=== PATIENT | male | born 1960 | race Caucasian/White ===

== ENCOUNTER 2019-01-22 19:41 | Inpatient (IN) ==
[2019-01-22] MEDS ORDERED: Isovue-370 500 ML BOTTLE IVP ONE (19:57)
--- NOTE | 2019-01-22 20:07 | Emergency Department Note ---
Disposition Clinical Impression: Diabetic foot infection Diabetic ulcer of toe Qualifiers: Diabetes mellitus type: type 2 Laterality: left Non-pressure ulcer stage: with necrosis of muscle Qualified Code(s): E11.621 - Type 2 diabetes mellitus with foot ulcer; L97.523 - Non-pressure chronic ulcer of other part of left foot with necrosis of muscle Cellulitis Qualifiers: Site of cellulitis: extremity Site of cellulitis of extremity: lower extremity Laterality: left Qualified Code(s): L03.116 - Cellulitis of left lower limb Hyperglycemia due to type 2 diabetes mellitus Qualifiers: Diabetes mellitus prison insulin use: with prison use Qualified Code(s): E11.65 - Type 2 diabetes mellitus with hyperglycemia; Z79.4 - USP (current) use of insulin Disposition: Admitted As Inpatient Referrals: Cher Pack CNP [Primary Care Provider] - Forms: ED Satisfaction Letter Time of Disposition: 22:29 General Adult HPI - General Chief complaint: ED Wound/Laceration Stated complaint: L Foot Open Wound Time Seen by Provider: 01/22/19 19:54 Source: patient Limitations: no limitations Nursing Notes Reviewed: Yes Vital Signs Reviewed: Yes - History of Present Illness HPI Narrative: Patient is a 58-year-old male with a past medical history including diabetes mellitus type 2 on insulin, hypertension, CHF, coronary artery disease on Plavix, presenting with a chief complaint of left foot wound and cellulitis. The patient states he has followed up with podiatry for many years. He had a left toe wound and ulceration for the last 6 years. He states he has not followed up with podiatry in several months. For the last week, he complains of worsening left toe pain. He has had increased left lower extremity swelling as that significant increase in redness as well. He denies any fevers or chills. He states this past Sunday, he developed nausea and vomiting. His blood glucose was significantly elevated and he states since then he has had a difficult time managing his blood sugar levels. He still complains of intermittent nausea but no vomiting. He denies abdominal pain, chest pain, shortness of breath. This past Sunday, he followed up with an urgent care which diagnosed him with left lower extremity cellulitis and started him on Keflex. His took a look at his foot today and states it was very foul smelling and a deep wound. She was concerned so brought him here for further evaluation for concerns of infection. Pain Scale: 5 - Related Data Home Medications Medication Instructions Recorded Confirmed Albuterol Sulfate [Albuterol 2 aerosol IH QID PRN 11/02/15 11/02/15 Inhaler] Aspirin 81 mg PO HS 11/02/15 11/02/15 Clopidogrel [Plavix] 75 mg PO DAILY 11/02/15 11/02/15 Dextroamphetamine/Amphetamine 5 mg PO HS 11/02/15 11/02/15 [Adderall 5 mg Tablet] Furosemide [Lasix] 20 mg PO HS 11/02/15 11/02/15 Furosemide [Lasix] 40 mg PO QAM 11/02/15 11/02/15 Gabapentin [Neurontin] 300 mg PO TID 11/02/15 11/02/15 Insulin ASPART [NovoLOG] 40 unit SQ TID 11/02/15 11/02/15 Insulin Glargine [Lantus] 60 units SQ HS 11/02/15 11/02/15 Lisinopril [Zestril] 20 mg PO DAILY 11/02/15 11/02/15 Memantine [Namenda] 5 mg PO HS 11/02/15 11/02/15 Metoprolol [Lopressor] 50 mg PO BID 11/02/15 11/02/15 Simvastatin [Zocor] 20 mg PO HS 11/02/15 11/02/15 Previous Rx's Medication Instructions Recorded predniSONE [Prednisone] 60 mg PO DAILY #12 tablet 08/01/16 Allergies Allergy/AdvReac Type Severity Reaction Status Date / Time No Known Allergies Allergy Verified 08/01/16 12:02 All systems ED: reviewed and negative except as stated. Review of Systems: As Per HPI Constitutional: Denies: fever, chills Cardiovascular: Denies: chest pain, palpitations Respiratory: Denies: cough, dyspnea Gastrointestinal: Reports: nausea, vomiting. Denies: abdominal pain, diarrhea Genitourinary: Denies: dysuria Integumentary: Reports: other (left leg pain erythema and diabetic ulcer) Neurological: Denies: headache, weakness Past Medical History - Past Medical History Attestation: Yes The following information was validated with the patient. Source: patient Medical history: Reports: asthma, CHF, coronary artery disease, diabetes, hyperlipidemia, hypertension Surgical history: Reports: other Psychiatric history: Reports: anxiety, depression - Social History Smoking Status: Never smoker Smokeless Tobacco Status: No Alcohol use: Reports: none Drug use: Reports: none Physical Exam - General Limitations: no limitations General appearance: alert, in no apparent distress - Head Head exam: atraumatic, normocephalic - Eye Eye exam: Present: normal appearance, EOMI - ENT ENT exam: normal exam, normal oropharynx - Neck Neck exam: Present: normal inspection, trachea midline - Chest Chest inspection: Present: normal inspection, symmetric chest wall rise - Respiratory Respiratory exam: Present: normal lung sounds bilaterally. Absent: respiratory distress, wheezes - Cardiovascular Cardiovascular exam: Present: regular rate, normal rhythm, normal heart sounds - Abdominal Exam Abdominal exam: Present: soft, Non-Tender. Absent: distention - Extremities Exam Extremities exam: Present: other (Left oneil and calf with significant erythema that is blanching, hot to touch, mild swelling. Left great toe with erythema and hot to touch. The plantar portion of the left toe shows a large ulceration with some necrotic tissue, foul-smelling, it is deep with some tracking.) - Neurological Exam Neurological exam: Present: alert, oriented X3 - Psychiatric Psychiatric exam: Present: normal affect, normal mood - Skin Skin exam: Present: warm, dry Course Vital Signs Temperature 98.5 F 01/22/19 19:44 Pulse Rate 94 01/22/19 19:44 Respiratory Rate 16 01/22/19 19:44 Blood Pressure 154/81 01/22/19 19:44 O2 Sat by Pulse Oximetry 95 01/22/19 19:44 Temperature 98.5 F 01/22/19 19:47 Pulse Rate 94 01/22/19 19:47 Respiratory Rate 16 01/22/19 19:47 Blood Pressure 154/81 01/22/19 19:47 O2 Sat by Pulse Oximetry 95 01/22/19 19:47 Oxygen Delivery Oxygen Delivery Room Air Medical Decision Making - [facility] Narrative Medical decision making narrative: Patient is presenting with a concern of a left diabetic foot ulceration, possible osteomyelitis, cellulitis. There is breakdown and erosion of the tissue with dark material but not necrotic appearing. Surrounding cellulitis and cellulitis of the left lower extremity. There is foul smelling green drainage from the left great toe. No crepitus. We will obtain CBC, BMP, beta hydroxybutyric acid and VBG as the patient's blood glucose levels have been elevated and he has nausea, CT left lower extremity with IV contrast. We will give him a liter of IV fluid bolus. 22:05 Labs reviewed. No leukocytosis. His blood glucose levels in the 400s and beta hydroxybutyric acid is mildly elevated with a normal pH, normal anion gap of 12. CT imaging reviewed and shows large plantar ulceration the great toe without ev idence of osteomyelitis. There is soft tissue gas within the lateral soft tissues of the great toe either related to ulcer or gas forming bacterial infection with associated phlegmon. No defined abscess. However do not suspect gas forming organism as the ulcer is pretty open. Will start the patient on antibiotics and admit the patient. 22:20 Discussed with hospitalist, Dr. Mendoza, who would like me to consult podiatry. 22:25 Discussed with podiatry, Dr. Vasquez, who states the findings are likely related to ulceration and the patient will be evaluated by Podiatry tomorrow morning. Patient accepted by hospitalist. - Medical Records Medical records reviewed: Yes I reviewed the patient's medical records. - Lab Data Lab results reviewed: Yes I reviewed the patient's lab results. Result diagrams: 01/22/19 20:12 01/22/19 20:12 Lab Results 01/22/19 01/22/19 01/22/19 Range/Units 20:12 20:12 20:12 WBC 7.0 (4.3-11.1) K/mcL RBC 4.73 (4.19-5.50) M/mcL Hgb 14.2 (12.9-16.9) g/dL Hct 40.5 (37.5-50.1) % MCV 85.6 (83.0-100.0) fL MCH 30.0 (28.0-33.3) pg MCHC 35.1 (31.6-35.5) g/dL RDW 13.3 (11.5-14.5) % Plt Count 176 (140-400) K/mcL MPV 10.8 (9.4-12.4) fL Immature Gran % 0.3 (0-4) % Seg Neutrophils % 66.5 % Lymphocytes % 20.9 % Monocytes % 9.9 % Eosinophils % 2.0 % Basophils % 0.4 % Neutrophils # 4.7 (1.6-8.9) K/mcL Lymphocytes # 1.5 (0.6-4.6) K/mcL Monocytes # 0.7 (0.0-1.3) K/mcL Eosinophils # 0.1 (0.0-0.6) K/mcL Basophils # 0.0 (0.0-0.2) K/mcL VBG pH (7.32-7.42) pH Units VBG pCO2 (41-51) mmHg VBG pO2 (25-50) mmHg VBG HCO3 (21-27) mEq/L Sodium 130 L (136-145) mEq/L Potassium 4.3 (3.5-5.1) mEq/L Chloride 98 (98-107) mEq/L Carbon Dioxide 20 L (23-29) mEq/L BUN 27 H (6-20) mg/dL Creatinine 1.04 (0.70-1.30) mg/dL Est GFR ( Amer) > 60 (> 60) Est GFR (Non-Af Amer) > 60 (> 60) BUN/Creatinine Ratio 26 (6-26) Glucose 472 H (70-105) mg/dL Calculated Osmolality 296 (280-300) Lactic Acid 1.0 (0.5-2.2) mmol/L Calcium 8.6 (8.6-10.3) mg/dL Beta-Hydroxybutyric Acd (0.02-0.27) mmol/L 01/22/19 01/22/19 Range/Units 20:12 20:39 WBC (4.3-11.1) K/mcL RBC (4.19-5.50) M/mcL Hgb (12.9-16.9) g/dL Hct (37.5-50.1) % MCV (83.0-100.0) fL MCH (28.0-33.3) pg MCHC (31.6-35.5) g/dL RDW (11.5-14.5) % Plt Count (140-400) K/mcL MPV (9.4-12.4) fL Immature Gran % (0-4) % Seg Neutrophils % % Lymphocytes % % Monocytes % % Eosinophils % % Basophils % % Neutrophils # (1.6-8.9) K/mcL Lymphocytes # (0.6-4.6) K/mcL Monocytes # (0.0-1.3) K/mcL Eosinophils # (0.0-0.6) K/mcL Basophils # (0.0-0.2) K/mcL VBG pH 7.39 (7.32-7.42) pH Units VBG pCO2 36 L (41-51) mmHg VBG pO2 61 H (25-50) mmHg VBG HCO3 21 (21-27) mEq/L Sodium (136-145) mEq/L Potassium (3.5-5.1) mEq/L Chloride (98-107) mEq/L Carbon Dioxide (23-29) mEq/L BUN (6-20) mg/dL Creatinine (0.70-1.30) mg/dL Est GFR ( Amer) (> 60) Est GFR (Non-Af Amer) (> 60) BUN/Creatinine Ratio (6-26) Glucose (70-105) mg/dL Calculated Osmolality (280-300) Lactic Acid (0.5-2.2) mmol/L Calcium (8.6-10.3) mg/dL Beta-Hydroxybutyric Acd 0.33 H (0.02-0.27) mmol/L - Radiology Data Radiology results reviewed: Yes I reviewed the patient's radiology results. Foot CT 01/22/19 19:57 IMPRESSION: Large plantar ulceration of the great toe. No CT evidence of osteomyelitis. Soft tissue gas within the lateral soft tissues of the great toe either related to the ulcer or gas-forming bacterial infection. Associated phlegmonous change. No defined abscess. D/ / 01/22/2019 22:04:30 James France MD / jackson Interpreting Provider: James France MD
[2019-01-22] MEDS ORDERED: 0.9 % Sodium Chloride 1,000 ML IVC ONE (20:15)
[2019-01-22 20:36] LABS: Basophils % 0.4 %; Eosinophils # 0.1 K/mcL (0.0-0.6); Hematocrit 40.5 % (37.5-50.1); Hemoglobin 14.2 g/dL (12.9-16.9); Immature Granulocytes % 0.3 % (0-4); Lymphocytes # 1.5 K/mcL (0.6-4.6); Lymphocytes % 20.9 %; Mean Corpuscular HGB Conc 35.1 g/dL (31.6-35.5); Mean Corpuscular Volume 85.6 fL (83.0-100.0); Mean Platelet Volume 10.8 fL (9.4-12.4); Monocytes # 0.7 K/mcL (0.0-1.3); Monocytes % 9.9 %; Neutrophils # 4.7 K/mcL (1.6-8.9); Platelet Count 176 K/mcL (140-400); Red Blood Count 4.73 M/mcL (4.19-5.50); Red Cell Distribution Width 13.3 % (11.5-14.5); Segmented Neutrophils % 66.5 %
[2019-01-22 20:41] LABS: VBG HCO3 21 mEq/L (21-27); VBG PCO2 36 mmHg (41-51); VBG PH 7.39 pH Units (7.32-7.42); VBG PO2 61 mmHg (25-50)
[2019-01-22 21:03] LABS: BUN/Creatinine Ratio 26 (6-26); Blood Urea Nitrogen 27 mg/dL (6-20); Calcium 8.6 mg/dL (8.6-10.3); Carbon Dioxide 20 mEq/L (23-29); Chloride 98 mEq/L (98-107); Glucose 472 mg/dL (70-105); Osmolality,Calculated 296 (280-300); Potassium 4.3 mEq/L (3.5-5.1); Sodium 130 mEq/L (136-145); eGFR For African Americans > 60 (> 60); eGFR For Non-African Americans > 60 (> 60)
[2019-01-22] MEDS ORDERED: Piperacillin/Tazobactam 3.375 GM in 0.9 % Sodium Chloride Mini Bag 100 ML IVPB ONE (22:12)
--- NOTE | 2019-01-22 22:15 | Emergency Department Note ---
Disposition Clinical Impression: Diabetic foot infection Cellulitis Qualifiers: Site of cellulitis: extremity Site of cellulitis of extremity: lower extremity Laterality: left Qualified Code(s): L03.116 - Cellulitis of left lower limb Disposition: Admitted As Inpatient Condition: Fair Referrals: Cher Pack CNP [Primary Care Provider] - Forms: ED Satisfaction Letter Time of Disposition: 22:15 General Adult HPI - General Chief complaint: ED Wound/Laceration Stated complaint: L Foot Open Wound Time Seen by Provider: 01/22/19 19:54 Source: patient Limitations: no limitations Nursing Notes Reviewed: Yes Vital Signs Reviewed: Yes - History of Present Illness Pain Scale: 5 - Related Data Home Medications Medication Instructions Recorded Confirmed Albuterol Sulfate [Albuterol 2 aerosol IH QID PRN 11/02/15 11/02/15 Inhaler] Aspirin 81 mg PO HS 11/02/15 11/02/15 Clopidogrel [Plavix] 75 mg PO DAILY 11/02/15 11/02/15 Dextroamphetamine/Amphetamine 5 mg PO HS 11/02/15 11/02/15 [Adderall 5 mg Tablet] Furosemide [Lasix] 20 mg PO HS 11/02/15 11/02/15 Furosemide [Lasix] 40 mg PO QAM 11/02/15 11/02/15 Gabapentin [Neurontin] 300 mg PO TID 11/02/15 11/02/15 Insulin ASPART [NovoLOG] 40 unit SQ TID 11/02/15 11/02/15 Insulin Glargine [Lantus] 60 units SQ HS 11/02/15 11/02/15 Lisinopril [Zestril] 20 mg PO DAILY 11/02/15 11/02/15 Memantine [Namenda] 5 mg PO HS 11/02/15 11/02/15 Metoprolol [Lopressor] 50 mg PO BID 11/02/15 11/02/15 Simvastatin [Zocor] 20 mg PO HS 11/02/15 11/02/15 Previous Rx's Medication Instructions Recorded predniSONE [Prednisone] 60 mg PO DAILY #12 tablet 08/01/16 Allergies Allergy/AdvReac Type Severity Reaction Status Date / Time No Known Allergies Allergy Verified 08/01/16 12:02 Constitutional: Denies: fever, chills Cardiovascular: Denies: chest pain, palpitations Respiratory: Denies: cough, dyspnea Gastrointestinal: Reports: nausea, vomiting. Denies: abdominal pain, diarrhea Genitourinary: Denies: dysuria Integumentary: Reports: other (left leg pain erythema and diabetic ulcer) Neurological: Denies: headache, weakness Past Medical History - Past Medical History Medical history: Reports: asthma, CHF, coronary artery disease, diabetes, hyperlipidemia, hypertension Surgical history: Reports: other Psychiatric history: Reports: anxiety, depression - Social History Smoking Status: Never smoker Smokeless Tobacco Status: No Alcohol use: Reports: none Drug use: Reports: none Physical Exam - General Limitations: no limitations General appearance: alert, in no apparent distress Course Vital Signs Temperature 98.5 F 01/22/19 19:44 Pulse Rate 94 01/22/19 19:44 Respiratory Rate 16 01/22/19 19:44 Blood Pressure 154/81 01/22/19 19:44 O2 Sat by Pulse Oximetry 95 01/22/19 19:44 Temperature 98.5 F 01/22/19 19:47 Pulse Rate 94 01/22/19 19:47 Respiratory Rate 16 01/22/19 19:47 Blood Pressure 154/81 01/22/19 19:47 O2 Sat by Pulse Oximetry 95 01/22/19 19:47 Oxygen Delivery Oxygen Delivery Room Air Medical Decision Making - Lab Data Result diagrams: 01/22/19 20:12 01/22/19 20:12 Lab Results 01/22/19 01/22/19 01/22/19 Range/Units 20:12 20:12 20:12 WBC 7.0 (4.3-11.1) K/mcL RBC 4.73 (4.19-5.50) M/mcL Hgb 14.2 (12.9-16.9) g/dL Hct 40.5 (37.5-50.1) % MCV 85.6 (83.0-100.0) fL MCH 30.0 (28.0-33.3) pg MCHC 35.1 (31.6-35.5) g/dL RDW 13.3 (11.5-14.5) % Plt Count 176 (140-400) K/mcL MPV 10.8 (9.4-12.4) fL Immature Gran % 0.3 (0-4) % Seg Neutrophils % 66.5 % Lymphocytes % 20.9 % Monocytes % 9.9 % Eosinophils % 2.0 % Basophils % 0.4 % Neutrophils # 4.7 (1.6-8.9) K/mcL Lymphocytes # 1.5 (0.6-4.6) K/mcL Monocytes # 0.7 (0.0-1.3) K/mcL Eosinophils # 0.1 (0.0-0.6) K/mcL Basophils # 0.0 (0.0-0.2) K/mcL VBG pH (7.32-7.42) pH Units VBG pCO2 (41-51) mmHg VBG pO2 (25-50) mmHg VBG HCO3 (21-27) mEq/L Sodium 130 L (136-145) mEq/L Potassium 4.3 (3.5-5.1) mEq/L Chloride 98 (98-107) mEq/L Carbon Dioxide 20 L (23-29) mEq/L BUN 27 H (6-20) mg/dL Creatinine 1.04 (0.70-1.30) mg/dL Est GFR ( Amer) > 60 (> 60) Est GFR (Non-Af Amer) > 60 (> 60) BUN/Creatinine Ratio 26 (6-26) Glucose 472 H (70-105) mg/dL Calculated Osmolality 296 (280-300) Lactic Acid 1.0 (0.5-2.2) mmol/L Calcium 8.6 (8.6-10.3) mg/dL Beta-Hydroxybutyric Acd (0.02-0.27) mmol/L 01/22/19 01/22/19 Range/Units 20:12 20:39 WBC (4.3-11.1) K/mcL RBC (4.19-5.50) M/mcL Hgb (12.9-16.9) g/dL Hct (37.5-50.1) % MCV (83.0-100.0) fL MCH (28.0-33.3) pg MCHC (31.6-35.5) g/dL RDW (11.5-14.5) % Plt Count (140-400) K/mcL MPV (9.4-12.4) fL Immature Gran % (0-4) % Seg Neutrophils % % Lymphocytes % % Monocytes % % Eosinophils % % Basophils % % Neutrophils # (1.6-8.9) K/mcL Lymphocytes # (0.6-4.6) K/mcL Monocytes # (0.0-1.3) K/mcL Eosinophils # (0.0-0.6) K/mcL Basophils # (0.0-0.2) K/mcL VBG pH 7.39 (7.32-7.42) pH Units VBG pCO2 36 L (41-51) mmHg VBG pO2 61 H (25-50) mmHg VBG HCO3 21 (21-27) mEq/L Sodium (136-145) mEq/L Potassium (3.5-5.1) mEq/L Chloride (98-107) mEq/L Carbon Dioxide (23-29) mEq/L BUN (6-20) mg/dL Creatinine (0.70-1.30) mg/dL Est GFR ( Amer) (> 60) Est GFR (Non-Af Amer) (> 60) BUN/Creatinine Ratio (6-26) Glucose (70-105) mg/dL Calculated Osmolality (280-300) Lactic Acid (0.5-2.2) mmol/L Calcium (8.6-10.3) mg/dL Beta-Hydroxybutyric Acd 0.33 H (0.02-0.27) mmol/L Attestation Statement - Attestation Attestation: I have seen this patient with the resident physician, I have personally evaluated this patient. I had reviewed the chart and document dictation by the resident physician and aM in agreement with the information documented by the resident physician. Please see documentation by the resident physician for complete chart including past medical history, family medical history, review of systems, current history and physical and laboratory and imaging studies. I was present for all procedures, provided direct supervision for all procedures, was present for the entirety of all procedures and provided direct guidance during the procedures. Please see documentation by the resident physician for any procedures performed. I have reviewed all interpretations of EKGs, and reviewed all EKGs performed on patient's as well. I have also reviewed reports of imaging as provided by radiology. Patient presented emergency department with progressively increasing left great toe pain and redness and swelling of his leg. He is a diabetic. He states he had some significant problems with nausea vomiting and just feeling bad with high blood sugars over the weekend but his was able to work with him as blood sugars down he has had some problems with a toe wound for a long time, but just noticed today when he took down the dressing he had on it that it was foul-smelling looked necrotic in that his leg looked worse On physical examination, he has a hard obit ulceration foul-smelling on the underside/plantar aspect of his left great toe, with necrotic appearing tissue without blackened discoloration, but with erosion of the tissue, the toe is swollen and erythematous, there is erythema on the dorsum of the left foot extending up the dorsal aspect of the left tibial region with some erythema onto the medial thigh. There is no palpable crepitus. There are no other wounds apart from over the left great toe. There is foul-smelling green drainage from the great toe. There is no lymphangitis. Patient had blood work ordered, was started on IV fluids and IV antibiotics, blood cultures were sent. CT scan of the foot showed no evidence of osteomyelitis, did show phlegmon change of the great toe without drainable abscess, there was some gas within the tissue which could be consistent with gas forming infection versus related to t he ulceration, the patient does not have any palpable crepitus of the toe itself and does have a large open wound, I do believe this is most likely related to that, as he does also not have any evidence of necrotizing fasciitis. He does have local area of likely with gangrene of the great toe, he will be admitted for further evaluation and management to medicine with consultation from podiatry.
[2019-01-23] MEDS ORDERED: Naloxone 0.4 MG/ML INJ IVP PRN (05:30)
--- NOTE | 2019-01-23 05:38 | Internal Med History&Physical ---
Date of Encounter: 01/23/19 Time of Encounter: 05:21 Internal Medicine - H&P: HPI Chief complaint: Diabetic foot ulcer Admitted From: Emergency Dept Plans for Post Hospital Care: Home History of present illness: Mr. Birmingham is a 58 year old male Patient presented to the emergency department with several day history of w orsening left foot great toe ulceration. He has had this wound for what he says is about 6 years. He has been in and out of wound care and podiatry clinics. He was recently seen wound care but he quit going because he was not seeing much progress and it was getting too expensive. He does not recall any specific injury but he did have what he thinks was a virus last week that set off his diabetes and then making his wound worse as well. He did go to urgent care a few days ago and was put on oral Keflex but the wound continued to worsen. In the emergency department blood cultures were drawn and patient was started on vancomycin and Zosyn. A CT scan was performed that show soft tissue gas within the lateral soft tissues which could be related to the ulcer or gas-forming bacteria. There was no defined abscess or CT evidence of osteomyelitis. The emergency department contacted on-call podiatry, and they agreed to see the patient in the morning. Their opinion was that the soft tissue gas is likely due to the ulceration and not gas-forming bacteria. He was admitted to the hospital for further management. Upon my evaluation, patient is resting comfortably in the hospital bed in no acute distress. He did have a BiPAP mask on, which I removed so that I can speak with him. He denies chest pain, abdominal pain, nausea, vomiting, diarrhea and constipation. He is a poorly controlled diabetic, stating his blood sugars range from the 200 to 300s all the time. His is at bedside. She is a full code. Past Med Surg Social Fam HX - Past Medical History Medical history: arthritis, asthma, CHF, COPD, coronary artery disease, diabetes, hyperlipidemia, hypertension Psychiatric history: anxiety, depression - Past Surgical History Surgical History: tonsillectomy Additional surgical history: heart cath, abscess I&D, - Social History Smoking Status: Never smoker Smokeless Tobacco Status: No Alcohol use: none Drug use: none - Family History Mother Family Member Ethnicity: Non- Living Status: Internal Medicine - H&P: Meds Aspirin 81 mg PO HS 11/02/15 [History] Clopidogrel [Plavix] 75 mg PO DAILY 11/02/15 [History] Furosemide [Lasix] 20 mg PO HS 11/02/15 [History] Furosemide [Lasix] 40 mg PO QAM 11/02/15 [History] Gabapentin [Neurontin] 300 mg PO TID 11/02/15 [History] Lisinopril [Zestril] 20 mg PO DAILY 11/02/15 [History] Metoprolol [Lopressor] 50 mg PO BID 11/02/15 [History] Simvastatin [Zocor] 20 mg PO HS 11/02/15 [History] Novolin N 30 unit SQ BID 01/23/19 [History] Allergy/AdvReac Type Severity Reaction Status Date / Time No Known Allergies Allergy Verified 08/01/16 12:02 All Systems PM: A 10-system review of systems was performed and is negative for pertinent findings except as documented above in the HPI. - Constitutional Vitals: Temp Pulse Resp BP Pulse Ox 97.7 F 79 18 128/82 94 01/23/19 02:45 01/23/19 02:45 01/23/19 02:45 01/23/19 02:45 01/23/19 02:45 General appearance: Present: cooperative, A&O X 3, pleasant, no acute distress, answers questions appropriately Exam: - - Head Head exam: Present: normal inspection - Eye Eye exam: Present: EOMI, normal appearance - Respiratory Respiratory exam: Present: decreased breath sounds, CTAB. Absent: rales, respiratory distress, rhonchi, wheezes - Cardiovascular Cardiovascular exam: Present: RRR. Absent: diastolic murmur, systolic murmur - GI/Abdominal GI/Abdominal exam: Present: normal bowel sounds, soft. Absent: tenderness - Extremities Exam Extremities exam: Present: warm, radial pulses palpable and symmetrical. Absent: calf tenderness, pedal edema, tenderness Additional comments: Left great toe swelling and redness with tunneling wound on the plantar surface. The lateral aspect of the great toe also has dark skin changes and skin b reakdown. The top of the foot is also some erythema as well. The foot itself is foul-smelling - Neurological Exam Neurological exam: Present: no focal deficits, strengths equal and symetr throughout. Absent: motor sensory deficit, facial droop, speech deficit - Skin Skin exam: Present: dry, erythema, warm Additional comments: Please see description of left great toe above. Internal Med - H&P Results - Labs CBC & Chem 7: 01/22/19 20:12 01/22/19 20:12 Labs: Short CBC 01/22/19 Range/Units 20:12 WBC 7.0 (4.3-11.1) K/mcL Hgb 14.2 (12.9-16.9) g/dL Hct 40.5 (37.5-50.1) % Plt Count 176 (140-400) K/mcL Neutrophils # 4.7 (1.6-8.9) K/mcL BMP 01/22/19 20:12 Sodium 130 L Potassium 4.3 Chloride 98 Carbon Dioxide 20 L BUN 27 H Creatinine 1.04 Glucose 472 H Calcium 8.6 - ABG Interpretation ABG results: 01/22/19 20:39 VBG pH 7.39 VBG pCO2 36 L VBG pO2 61 H VBG HCO3 21 - Impressions ITS Impressions Foot CT 01/22/19 19:57 IMPRESSION: Large plantar ulceration of the great toe. No CT evidence of osteomyelitis. Soft tissue gas within the lateral soft tissues of the great toe either related to the ulcer or gas-forming bacterial infection. Associated phlegmonous change. No defined abscess. D/ / 01/22/2019 22:04:30 James France MD / jackson Interpreting Provider: James France MD - Assessment and Plan (1) Diabetic ulcer of toe Current Visit: Yes Status: Acute Assessment and plan: Patient presented to the ER with worsening left great toe infection. He has a long history of infection in this foot. Podiatry consult was placed by the ER will see the patient in the morning. Follow-up podiatry recommendations Continue IV antibiotics Follow-up blood cultures Monitor for worsening signs of infection Qualifiers: Diabetes mellitus type: type 2 Laterality: left Non-pressure ulcer stage: with necrosis of muscle Qualified Code(s): E11.621 - Type 2 diabetes mellitus with foot ulcer; L97.523 - Non-pressure chronic ulcer of other part of left foot with necrosis of muscle (2) Hyponatremia Current Visit: Yes Status: Acute Assessment and plan: Sodium was 130 in the emergency room. Patient has received 1 L of IV fluids. Repeat a.m. labs Monitor closely to avoid overcorrection Hold off on further IV fluids until labs return (3) Hyperglycemia due to type 2 diabetes mellitus Current Visit: Yes Status: Acute Assessment and plan: Patient is a poorly controlled insulin dependent diabetic Monitor sugars every 6 hours Nothing by mouth until evaluated by podiatry High dose insulin sliding scale as needed Hold home meds. 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
[2019-01-23] MEDS ORDERED: *HR* Dextrose 50 % in Water (Syg) 50 ML SYRINGE IVP PRN (05:41)
[2019-01-23] MEDS ORDERED: D5% in Water 1,000 ML IVC PRN (05:41)
[2019-01-23] MEDS ORDERED: Dextrose Gel 15 GM/37.5 ML TUBE PO PRN ×2 (05:41)
[2019-01-23] MEDS: Insulin LISPRO 300 UNITS/3 ML VIAL SQ SCH ×4 (06:12→23:04)
[2019-01-23 06:32] LABS: Hematocrit 39.9 % (37.5-50.1); Mean Corpuscular HGB Conc 35.1 g/dL (31.6-35.5); Mean Corpuscular Hemoglobin 30.5 pg (28.0-33.3); Mean Corpuscular Volume 86.9 fL (83.0-100.0); Mean Platelet Volume 10.9 fL (9.4-12.4); Platelet Count 176 K/mcL (140-400); Red Blood Count 4.59 M/mcL (4.19-5.50); Red Cell Distribution Width 13.7 % (11.5-14.5); White Blood Count 6.3 K/mcL (4.3-11.1)
[2019-01-23] MEDS ORDERED: *HR* OxyCODONE Immed Rel 5 MG TABLET PO ONE ×2 (06:35→06:42)
[2019-01-23 06:50] LABS: BUN/Creatinine Ratio 26 (6-26); Blood Urea Nitrogen 25 mg/dL (6-20); Calcium 8.6 mg/dL (8.6-10.3); Carbon Dioxide 27 mEq/L (23-29); Chloride 99 mEq/L (98-107); Glucose 358 mg/dL (70-105); Osmolality,Calculated 299 (280-300); Potassium 3.9 mEq/L (3.5-5.1); Sodium 135 mEq/L (136-145); eGFR For African Americans > 60 (> 60); eGFR For Non-African Americans > 60 (> 60)
--- NOTE | 2019-01-23 08:27 | Event Note ---
<Meche Arellano - Last Filed: 01/23/19 14:21> Date of Encounter: 01/23/19 I examined this patient and my medical decision-making was reviewed with the Resident Physician Dr Durand. I agree with the documented findings, disposition and treatment plan as described except to the extent set forth below. Mr Birmingham is being observed for left great toe infection awake, at bedside, denies fevers, chills, pain. awaiting podiatry eval, no complaints gen- alert, awake,appears stated age cv- reg rate and rhythm, normal s1,s2, dp/pt pulses intact and equal lungs- ctabl, norm resp effort room air skin- left great toe with large necrotic wound and foot /toe increased warmth and erythema neuro- AAOx3 Diabetic L great toe ulcer CT with gas was reviewed by podiatry and suspected 2/2 ulcer not gas forming bacteria -OR with podiatry later today, cxs pending, IV vanc + zosyn and will need ID consult Hyponatremia is largely pseudo hyponatremia 2/2 hyperglycemia- admitting Na corrects to 135, on repeat checks now 141 with appropriate correction Uncontrolled DM- npo for OR with SSI currently, will require starting basal insulin tonight, takes Novolin 30 mg BID at home, will adjust insulin daily as needed Stable chronic HFpEF- cont home diuretic Stable Chronic CAD, no recent stenting- no asa, plavix this morning as to OR, cont statin + BB, acei as BP permits, will discuss with Podiatry post op when able to resume further dx and plan as noted by resident <Tamy Durand - Last Filed: 01/23/19 14:51> Date of Encounter: 01/23/19 Time of Encounter: 08:26 Patient was seen and examined at bedside. Patient says no improvement in LLE s/s, still has cellulitis of lower left leg and ulceration of left great toe with some serous bloody drainage. Says he feels nauseous, no vomiting. Pain well managed by meds. Denies fever, chills, headache, chest pain, shortness of breath, cough, hemoptysis, palpitations, abdominal pain, V/D/C, melena, hematochezia, dysuria, urinary frequency/urgency, blood in urine. PE: Constitutional: alert, oriented, in no acute distress, oriented X 3, well nourished, well-developed Head: normocephalic, atraumatic Eyes: EOMI, pupils equal and reactive bilaterally Heart: normal, regular rate and rhythm, no murmurs, S1, S2 normal Lungs: clear to auscultation, no wheezes, rales, rhonchi Abdomen: soft, nontender, nondistended, no masses palpable, bowel sounds present and normal, no hepatosplenomegaly, no guarding or rigidity, no CVA tenderness Extremities: no clubbing, cyanosis, or edema, pulses +3/4 in all 4 extremities. Skin: dry, intact, no bruising. Left great toe swelling and redness with tunneling wound on plantar surface. Lateral aspect of same toe also has dark skin changes and skin breakdown. Entire left foot has erythema on dorsal surface. Left oneil cellulitis, erythema and warmth. Psych: alert, oriented, cooperative with exam, good eye contact, cognitive function intact, judgement and insight good, speech clear, thought process logical, goal directed A/P (1) Diabetic ulcer of toe 58M presented with worsening left great toe infection. H/o uncontrolled DM on insulin, chronic nonhealing left great toe wound for past [address] foot: Soft tissue gas within the lateral soft tissue of left great toe, likely secondary to ulceration. No abscess, no osteomyelitis. Started on vancomycin and Zosyn in ED. ESR 18, CRP 76 - Podiatry recs: Applied Betadine dressing this morning. Plan for OR this evening. - Continue IV antibiotics at this time. - ID consult. For further antibiotic recommendations. - Blood cultures and wound cultures pending - Continue to monitor for worsening signs of infection (2) Hyponatremia Sodium was 130 in the emergency room. Patient has received 1 L of IV fluids. A.m. sodium 135. - Monitor closely to avoid overcorrection - Received D5 1 liter this a.m. Hold further IV fluids. (3) Hyperglycemia due to type 2 diabetes mellitus Poorly controlled insulin-dependent diabetic, home sugars usually . Takes Novolin 30 units twice a day at home. - q6 Accu checks - Currently on SSI. Will reevaluate insulin needs after surgery this evening. - Hold home meds (4) BEN treated with BiPAP Continue BiPAP (5) DVT prophylaxis SCDs on right leg
[2019-01-23] MEDS ORDERED: Furosemide 40 MG TABLET PO SCH (09:00)
[2019-01-23] MEDS ORDERED: Ondansetron 4 MG/2 ML VIAL IVP PRN (09:04)
[2019-01-23] MEDS: Piperacillin/Tazobactam 3.375 GM in 0.9 % Sodium Chloride Mini Bag 100 ML IVPB SCH ×2 (09:06→15:53)
[2019-01-23] MEDS: Gabapentin 300 MG CAPSULE PO SCH ×3 (09:30→22:50)
--- NOTE | 2019-01-23 11:25 | Podiatry Consult Note ---
Date of Encounter: 01/23/19 Time of Encounter: 11:00 Assessment and Plan (1) Diabetic ulcer of toe Current visit: Yes Status: Acute Assessment complete at bedside CT reviewed- no osteomyelitis noted however there is possible gas noted within the tissue ESR 18 CRP 76 WBC 7.0 and Admit glucose 433 A1c ordered to assess control After a thorough discussion with the patient decision was made to amputate the left hallux Ulceration has been ongoing x6 years and now presents with blow out wound to toe and cellulitis of the LLE Surgical procedure discussed as well as expected outcomes and recovery Discussed all risk factors including but not limited to continued infection, return to surgery, loss of blood, pain, nerve damage, blood clot, pneumonia, partial loss of foot, loss of limb, sepsis, . Verbalizes complete understanding and voices no concerns All questions were answered at bedside Consent was obtained and placed to chart. Toe was cleansed with saline Painted with betadine adaptic 4x4 and kerlix bulk dressing applied Continue with IV antibiotics- currently on vanc and zosyn Intra-op cultures will be obtained SW consult for discharge planning Consider ID consult for IV antibiotic management NPO now plan for surgery this evening with . Foot CT 01/22/19 19:57 IMPRESSION: Large plantar ulceration of the great toe. No CT evidence of osteomyelitis. Soft tissue gas within the lateral soft tissues of the great toe either related to the ulcer or gas-forming bacterial infection. Associated phlegmonous change. No defined abscess. 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 of muscle (2) Diabetes mellitus Current visit: No Status: Acute Tight glucose control to promote healing and prevent further complication Patient has been non compliant with glucose control in the past Goal of Ha1c 7% or below Discussed carb and sugar control while at bedside as well as increased protein intake Discussed proper protein drink supplements once discharged and to avoid high carb high sugar shakes Consider dietary consult Qualifiers: Diabetes mellitus type: type 2 Diabetes mellitus jail insulin use: with joint terminal attack controller use Diabetes mellitus complication status: with neurologic complications Diabetes mellitus complication detail: with polyneuropathy Qualified Code(s): E11.42 - Type 2 diabetes mellitus with diabetic polyneuropathy History of Present Illness HPI: Mr. Birmingham is a 58 year old male who presented to the emergency department with complaints of worsening left great toe ulceration. Patient reports he has been battling this wound for almost 6 years however reports that 2 weeks ago it was only a small callus and is now a large wound. Patient reports he has been seen in wound care previously but it was not helping. Patient reports that about a week ago and was put on oral Keflex but the wound continued to worsen. Patient reports he had some type of virus last week that spiked his blood sugar and he believes this is what caused the wound to quickly worsen. A CT scan was performed in the ED that showed soft tissue gas within the lateral soft tissues which could be related to the ulcer or gas-forming bacteria. There was no defined abscess or CT evidence of osteomyelitis. This was discussed with patient and family. blood cultures and wound cultures were obtained. Patient was started on vanc and zosyn. Patient is a poorly controlled diabetic with blood glucose reports of 200-300. Patient also has a history of COPD. Patient states he had issues waking up from surgery in the past related to his COPD and this is concerning for him. Patient is bipap dependent at night. Patient is completely neuropathic to foot and denies any pain. Past Med Surg Social Fam HX - Past Medical History Medical history: arthritis, asthma, CHF, COPD, coronary artery disease, diabetes, hyperlipidemia, hypertension Psychiatric history: anxiety, depression - Past Surgical History Surgical History: tonsillectomy Additional surgical history: heart cath, abscess I&D, - Social History Smoking Status: Never smoker Smokeless Tobacco Status: No Alcohol use: none Drug use: none - Family History Mother Family Member Ethnicity: Non- Living Status: Medications and Allergies Aspirin 81 mg PO HS 11/02/15 [History] Clopidogrel [Plavix] 75 mg PO DAILY 11/02/15 [History] Furosemide [Lasix] 20 mg PO HS 11/02/15 [History] Furosemide [Lasix] 40 mg PO QAM 11/02/15 [History] Gabapentin [Neurontin] 300 mg PO TID 11/02/15 [History] Lisinopril [Zestril] 20 mg PO DAILY 11/02/15 [History] Metoprolol [Lopressor] 50 mg PO BID 11/02/15 [History] Simvastatin [Zocor] 20 mg PO HS 11/02/15 [History] Novolin N 30 unit SQ BID 01/23/19 [History] Allergy/AdvReac Type Severity Reaction Status Date / Time No Known Allergies Allergy Verified 08/01/16 12:02 All Systems Reviewed: as per HPI Physical Exam - Constitutional Vitals: Temp Pulse Resp BP Pulse Ox 98.6 F 86 14 114/74 96 01/23/19 11:01 01/23/19 11:01 01/23/19 11:01 01/23/19 11:01 01/23/19 11:01 Exam: CONSTITUTIONAL: awake alert and oriented x3 VASCULAR: pulses palpable dp/pt, warm toes to tibia, cap refill <3 seconds, no calf pain with manual compression NEUROLOGICAL: Absent sensation to light and moderate touch. Complete loss of protective sensation MUSCULOSKELETAL: Muscle strength 5/5 and equal bilaterally SKIN: Left great toe : There is a noted ulceration sub IP joint toe #1 left, there is necrotic changes to margins of wound. There is purulent drainage. Foul odor. There is tracking across plantar aspect of toe #1 laterally and a blow out wound is noted to the distal lateral aspect of the toe. There is purulent drainage noted from both wounds. There is necrosis to the margins of the lateral toe wound as well. There is associated cellulitis with edema erythema and warmth of toe. There is cellulitis noted to the dorsal aspect of the foot which extends into the mid tibial region of the LLE. There is a noted hyperkeratotic lesion sub mt head #5 left that is without appearance of infection or ulceration. Results - Labs Result Diagrams: 01/23/19 06:05 01/23/19 10:03 Labs: Abnormal lab results ESR 18 mm/hr (0-10) H 01/23/19 08:36 VBG pCO2 36 mmHg (41-51) L 01/22/19 20:39 VBG pO2 61 mmHg (25-50) H 01/22/19 20:39 Sodium 135 mEq/L (136-145) L 01/23/19 06:05 Carbon Dioxide 20 mEq/L (23-29) L 01/22/19 20:12 BUN 25 mg/dL (6-20) H 01/23/19 06:05 Glucose 358 mg/dL (70-105) H 01/23/19 06:05 POC Glucose 333 mg/dL (70-99) H 01/23/19 06:12 C-Reactive Protein 76 mg/L (Less than 10) H 01/23/19 08:36 Beta-Hydroxybutyric Acd 0.33 mmol/L (0.02-0.27) H 01/22/19 20:12 H & H 01/22/19 01/23/19 Range/Units 20:12 06:05 Hgb 14.2 14.0 (12.9-16.9) g/dL Hct 40.5 39.9 (37.5-50.1) % All other labs normal. Consult Discharge Plan - Plan Referrals: Cher Pack, PRODUCT DEVELOPMENT DIRECTOR [Primary Care Provider] -
[2019-01-23 16:09] LABS: Estimated Average Glucose 295 mg/dl
[2019-01-23] MEDS ORDERED: Furosemide 20 MG TABLET PO SCH (21:00)
[2019-01-23] MEDS ORDERED: Insulin DETEMIR 100 UNIT/ML X5UNITS SQ SCH (21:00)
--- NOTE | 2019-01-23 23:52 | Anesthesia Evaluation PreOp ---
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) Other Medical History: Diabetes Type II, Other ([place] BMI-43.3) Anesthesia History: Past Anesthesia (tonsillectomy) Alcohol Use: none Drug use: none Medications and Allergies Aspirin 81 mg PO HS 11/02/15 [History] Clopidogrel [Plavix] 75 mg PO DAILY 11/02/15 [History] Furosemide [Lasix] 20 - 40 mg PO BID PRN 11/02/15 [History] Gabapentin [Neurontin] 300 mg PO BID 11/02/15 [History] Lisinopril [Zestril] 20 mg PO DAILY 11/02/15 [History] Ergocalciferol (VITAMIN D2) [Vitamin D2] 50,000 units PO TH 01/23/19 [History] Insulin NPH Human Isophane [Novolin N] 30 unit SQ BID 01/23/19 [History] Metoprolol [Lopressor] 50 mg PO BID 01/23/19 [History] Multivitamin [Daily Multiple Vitamin] 1 tab PO DAILY 01/23/19 [History] Simvastatin [Zocor] 40 mg PO HS 01/23/19 [History] Tramadol HCl [Ultram] 50 mg PO Q6H PRN 01/23/19 [History] Ubidecarenone/Vit E Acetate [Co Q-10 100 mg Softgel] 100 mg PO DAILY 01/23/19 [History] carBAMazepine [Tegretol] 200 mg PO HS 01/23/19 [History] Allergy/AdvReac Type Severity Reaction Status Date / Time No Known Allergies Allergy Verified 01/23/19 18:07 - Meds/Allergy Pre-op Review Medications Reviewed: Yes Allergies Reviewed: Yes Beta Blockers on Current Med List: Yes If Beta Blockers taken, Date/Time (Last Dose taken): 21:58 01/23/2019 Anesthesia Results - Labs 01/23/19 06:05 01/23/19 10:03 Laboratory Tests 12/21/14 01/23/19 01/23/19 06:52 06:05 06:05 WBC 6.3 Hgb 14.0 Hct 39.9 Plt Count 176 INR 1.1 Sodium Potassium 3.9 Chloride 99 Carbon Dioxide 27 Creatinine 0.96 01/23/19 10:03 WBC Hgb Hct Plt Count INR Sodium 137 Potassium Chloride Carbon Dioxide Creatinine - Imaging EKG: report reviewed (SR) Additional studies: Echocardiogram Name: Gaston Birmingham Date of Study: 11/02/2015 Indications: Shortness of breath Impressions: Technically sub-optimal due to body habitus. Many structures were not well visualized. LVEF grossly normal, 60-65%. LV chamber size appears normal. Unable to accurately quantify LV wall thickness. Many LV segments not well visualize, but overall LV function appears normal. Mild left ventricular diastolic dysfunction. Right ventricle was not well visualized. Biatrial enlargement. Aortic and mitral valve function appears grossly normal. Other valves were not well visualized. RVSP could not be obtained. Anesthesia Exam Vital Signs/O2 Sat, Most Current Temp Pulse Resp BP Pulse Ox 98.5 F 74 18 143/90 96 01/23/19 16:06 01/23/19 21:43 01/23/19 16:06 01/23/19 21:43 01/23/19 16:06 NPO (# of Hours): > 8 hrs Pain Scale: 0 Pain Scale Used: Numeric (1 - 10) - HEENT Pupil (Motor): Pupils equal, EOMI Mallampati: III Teeth: Normal Oral Opening: Greater than 3 - NEEDLE BOARD REPAIRER LOC: Oriented NEEDLE BOARD REPAIRER Motor: Normal RUE, Normal LUE, Normal RLE, Normal LLE, Normal Face NEEDLE BOARD REPAIRER Sensory: Normal: RUE, LUE, RLE, LLE, Face - Cardiac Rhythm: Regular Murmur: None JVD: No Carotid Bruit: No - Pulmonary Breath Sounds: bilateral Clear Respiratory Effort: Symmetrical Anesthesia Assess/Plan ASA Score: 4 Level of consciousness: Cooperative Anesthetic Plan: MAC Autologous Blood: Yes Monitoring Plan: Standard Monitors Recovery Plan: Other
[2019-01-24] MEDS ORDERED: Lidocaine 1% 20 ML MDV ONE (00:20)
[2019-01-24] MEDS ORDERED: Vancomycin 1,000 MG VIAL ONE (00:20)
[2019-01-24] MEDS ORDERED: Calcium Gluconate 1,000 MG/10 ML VIAL ONE (00:25)
[2019-01-24] MEDS ORDERED: *HR* Propofol 200 MG/20 ML VIAL IVP ONE (00:26)
--- NOTE | 2019-01-24 00:28 | Podiatry Progress Note ---
Date of Encounter: 01/24/19 Time of Encounter: 00:00 - Assessment and Plan (1) Abscess of left foot Current Visit: Yes Status: Acute I had a thorough review with the patient regarding his condition, my findings, and my recommendations for treatment. We discussed the worsening ulceration and purulent drainage/abscess in the left big toe and the cellulitis tracking onto the foot and up the leg. We discussed amputating the left hallux and performing an incision and drainage. Nature of these procedures, risks versus benefits potential complications consequences of surgery and his condition discussed at length. Discussed with patient there are no guarantees as to the outcome of any procedure. Discussed with patient he could require multiple trips to the operating room and the surgical wound may be left open and have to heal. Discussed that he is at risk for partial foot/limb loss, development of sepsis. Patient is in agreement to proceed with amputation of the left hallux. All of his questions have been answered and informed consent was signed. Subjective Principal diagnosis: soft tissue gas/abscess Interval history: Mr. Birmingham is a 58 year old diabetic male with neuropathy and 6 year history of left hallux ulceration who presented to the emergency department with complaints of worsening left great toe ulceration. Patient reports that 2 weeks ago it was only a small callus and is now a large wound. Patient has not been seeing anyone for the wound. He says he last saw me a couple years ago. Patient reports that about a week ago and was put on oral Keflex but the wound continued to worsen. A CT scan was performed that showed soft tissue gas within the lateral soft tissues of the left hallux. Patient has been admitted and on IV antibiotics. Patient is completely neuropathic to foot and denies any pain. Patient being brought to the operating room for surgery to amputate the left hallux. Objective - Vital Signs Vital Signs: Vital Signs Temp Pulse Resp BP Pulse Ox 01/23/19 21:43 74 143/90 01/23/19 16:06 98.5 F 71 18 133/75 96 01/23/19 11:01 98.6 F 86 14 114/74 96 01/23/19 06:26 80 122/75 01/23/19 02:45 97.7 F 79 18 128/82 94 Intake and Output 01/23/19 01/23/19 01/24/19 15:59 23:59 07:59 Intake Total 600 / 2300 100 / 2300 Balance 600 / 2300 100 / 2300 Intake: IV Fluids 600 / 2300 100 / 2300 Zosyn 3.375 GM In 0.9 % Sodium 100 / 200 100 / 200 Chloride (Mini-Bag +) 100 ML @ 25 mls/hr IVPB Q8HR [facility] Rx#: [id number] Vancocin 2,000 MG In 0.9 % 500 / 500 Sodium Chloride 500 ML @ 334. 014 mls/hr IVPB 1200 ONE Rx#: [id number] Other: # Voids 1 Blood Glucose* 235 173 - Exam Exam: well developed obese male in no acute distress. awake alert and oriented x3 VASCULAR: pulses palpable dp/pt, warm toes to tibia, cap refill <3 seconds, no calf pain with manual compression NEUROLOGICAL: Absent sensation to light and moderate touch. Complete loss of protective sensation MUSCULOSKELETAL: Muscle strength 5/5 and equal bilaterally SKIN: Left great toe : There is a noted ulceration sub IP joint toe #1 left, there is necrotic changes to margins of wound. There is purulent drainage. Foul odor. There is tracking across plantar aspect of toe #1 laterally and a blow out wound is noted to the distal lateral aspect of the toe. There is purulent drainage noted from both wounds. There is necrosis to the margins of the lateral toe wound as well. There is associated cellulitis with edema erythema and warmth of toe. There is cellulitis noted to the dorsal aspect of the foot which extends into the mid tibial region of the LLE. There is a noted hyperkeratotic lesion sub mt head #5 left that is without appearance of infection or ulceration. - Lab Result Diagrams: 01/23/19 06:05 01/23/19 10:03 Labs: Abnormal lab results ESR 18 mm/hr (0-10) H 01/23/19 08:36 VBG pCO2 36 mmHg (41-51) L 01/22/19 20:39 VBG pO2 61 mmHg (25-50) H 01/22/19 20:39 Sodium 135 mEq/L (136-145) L 01/23/19 06:05 Carbon Dioxide 20 mEq/L (23-29) L 01/22/19 20:12 BUN 25 mg/dL (6-20) H 01/23/19 06:05 Glucose 358 mg/dL (70-105) H 01/23/19 06:05 POC Glucose 169 mg/dL (70-99) H 01/23/19 17:42 Hemoglobin A1c 11.9 % (-5.6) H 01/23/19 15:03 C-Reactive Protein 76 mg/L (Less than 10) H 01/23/19 08:36 Beta-Hydroxybutyric Acd 0.33 mmol/L (0.02-0.27) H 01/22/19 20:12 Microbiology, Last 48 Hours 01/23/19 08:25 Wound Culture - Preliminary Left Great Toe Culture is incubating. 01/22/19 20:12 Blood Culture - Preliminary Peripheral Venipuncture Culture is incubating and being continuously monitored for growth. Final report to follow. 01/22/19 20:12 Blood Culture - Preliminary Peripheral Venipuncture Culture is incubating and being continuously monitored for growth. Final report to follow. Consult Discharge Plan - Plan Referrals: Cher Pack, ADMINISTRATIVE OPERATIONS COORDINATOR [Primary Care Provider] -
[2019-01-24] MEDS ORDERED: Lidocaine -MPF 2% 2 ML VIAL ONE (00:29)
--- NOTE | 2019-01-24 01:12 | Operative Note ---
Date of procedure: 01/24/19 Pre-op diagnosis: left hallux abscess, soft tissue gas Post-op diagnosis: same Procedure: amputation left hallux Implants: none Complications: none Anesthesia: MAC Local Anesthetics: 1% Lidocaine HCL SubQ (cc) Surgeon: Samuel Cabral Was there an audiology assistant present: No Estimated blood loss (cc): 15 Specimen: left hallux ulcer, left hallux bone-micro, path-left hallux Condition: stable Disposition: PACU Procedure in Detail: Indications: 58-year-old diabetic male with chronic ulceration and soft tissue gas and abscess containing purulent drainage from the ulceration on the left hallux. Nature of the procedure, risks versus benefits potential complications consequences of surgery and his condition discussed at length. No guarantees made as to the outcome of any procedure. Informed consent in that signed. Patient was taken from the preoperative holding area and operating room placed on operating room table in the supine position. The left foot was scrubbed prepped and draped in the usual sterile fashion. No tourniquet was utilized during the entire procedure. The patient's bladder been obtained by the perfusion team and spun into PRP which was utilized as below. Amputation left hallux. Attention was directed to the left hallux where a #10 blade was used to make an incision through the ulceration a lateral aspect of the hallux and purulent drainage was noted. Significantly devitalized and necrotic tissue was present in the wound and it was excised and sent to [facility]. Purulent drainage was noted to track proximally along the proximal phalanx laterally and stopped just proximal to the base of the proximal phalanx. The decision was made to proceed with amputation of the hallux as there was devitalized tissue extending into this area. The hallux was disarticulated at the metatarsophalangeal joint. A fishmouth type incision was made around the metatarsophalangeal joint full-thickness. Flexor and extensor tendons were traced as far proximal and the wound as possible and resected. The left hallux bone was soft and some of it was sent to microbiology. The remainder of the hallux was sent to pathology. After amputating the toe at the level of the metatarsophalangeal joint the site was irrigated with saline which contained vancomycin. No devitalized tissue was present at this level. No evidence of purulent drainage tracking more proximal. Bleeders were cauterized using the Bovie as well as tied off using [facility]ryl. A piece of Surgicel was placed into the inferior aspect of the amputation site. There was adequate hemostasis. There was no devitalized tissue present. The decision was made to proceed with closure of the wound. PRP was sprayed onto the wound bed. 2-0 Prolene was used to reapproximate the skin. Postoperative bandaging included Adaptic, 4 x 4 gauze Kerlix and an Fly wrap. Patient tolerated the anesthesia and the procedure well escorted the recovery room with vital signs stable and vascular status intact to the remaining digits of the left foot. He will return to the floor where he will continue IV antibiotics.
[2019-01-24] MEDS ORDERED: Dextrose Gel 15 GM/37.5 ML TUBE PO PRN ×2 (01:26)
[2019-01-24] MEDS ORDERED: Ondansetron 4 MG/2 ML VIAL IVP PRN (01:26)
[2019-01-24] MEDS ORDERED: *HR* Dextrose 50 % in Water (Syg) 50 ML SYRINGE IVP PRN (01:26)
[2019-01-24] MEDS ORDERED: Naloxone 0.4 MG/ML INJ IVP PRN (01:26)
[2019-01-24] MEDS ORDERED: D5% in Water 1,000 ML IVC PRN (01:26)
[2019-01-24] MEDS: Piperacillin/Tazobactam 3.375 GM in 0.9 % Sodium Chloride Mini Bag 100 ML IVPB SCH ×3 (01:57→17:45)
[2019-01-24 05:10] LABS: Basophils % 0.7 %; Eosinophils # 0.1 K/mcL (0.0-0.6); Hematocrit 38.7 % (37.5-50.1); Hemoglobin 13.3 g/dL (12.9-16.9); Lymphocytes # 1.6 K/mcL (0.6-4.6); Lymphocytes % 27.9 %; Mean Corpuscular HGB Conc 34.4 g/dL (31.6-35.5); Mean Corpuscular Hemoglobin 30.4 pg (28.0-33.3); Mean Corpuscular Volume 88.6 fL (83.0-100.0); Mean Platelet Volume 10.6 fL (9.4-12.4); Monocytes # 0.6 K/mcL (0.0-1.3); Monocytes % 9.7 %; Neutrophils # 3.5 K/mcL (1.6-8.9); Platelet Count 191 K/mcL (140-400); Red Blood Count 4.37 M/mcL (4.19-5.50); Red Cell Distribution Width 13.3 % (11.5-14.5); Segmented Neutrophils % 58.7 %; White Blood Count 5.9 K/mcL (4.3-11.1)
[2019-01-24 05:29] LABS: BUN/Creatinine Ratio 19 (6-26); Blood Urea Nitrogen 18 mg/dL (6-20); Calcium 8.4 mg/dL (8.6-10.3); Carbon Dioxide 24 mEq/L (23-29); Chloride 103 mEq/L (98-107); Glucose 287 mg/dL (70-105); Osmolality,Calculated 298 (280-300); Potassium 3.9 mEq/L (3.5-5.1); Sodium 138 mEq/L (136-145); eGFR For African Americans > 60 (> 60); eGFR For Non-African Americans > 60 (> 60)
[2019-01-24] MEDS ORDERED: Insulin LISPRO 300 UNITS/3 ML VIAL SQ SCH ×2 (06:00→21:00)
[2019-01-24] MEDS ORDERED: *HR* OxyCODONE Immed Rel 5 MG TABLET PO ONE (06:15)
--- NOTE | 2019-01-24 08:49 | Internal Med Progress Note ---
<Meche Arellano - Last Filed: 01/24/19 11:21> Hospitalist Progress Note - Encounter Date of Encounter: 01/24/19 - Exam Vitals: Temp Pulse Resp BP Pulse Ox 97.8 F 64 18 128/83 95 01/24/19 06:38 01/24/19 06:38 01/24/19 06:38 01/24/19 06:38 01/24/19 06:38 - Assessment and Plan (1) BEN treated with BiPAP Current Visit: No Status: Chronic (2) DVT prophylaxis Current Visit: No Status: Acute (3) Diabetic ulcer of toe Current Visit: Yes Status: Acute (4) Hyperglycemia due to type 2 diabetes mellitus Current Visit: Yes Status: Acute (5) Hyponatremia Current Visit: Yes Status: Acute - Time Spent with Patient Total time spent is greater than 50% in coordination of care (as documented) at patient's floor/unit and/or counseling patient: Internal Medicine: Result - Labs CBC & Chem 7: 01/24/19 04:47 01/24/19 04:47 Labs: Short CBC 01/24/19 Range/Units 04:47 WBC 5.9 (4.3-11.1) K/mcL Hgb 13.3 (12.9-16.9) g/dL Hct 38.7 (37.5-50.1) % Plt Count 191 (140-400) K/mcL Neutrophils # 3.5 (1.6-8.9) K/mcL BMP 01/24/19 04:47 Sodium 138 Potassium 3.9 Chloride 103 Carbon Dioxide 24 BUN 18 Creatinine 0.93 Glucose 287 H Calcium 8.4 L - Impressions Impressions Foot CT 01/22/19 19:57 IMPRESSION: Large plantar ulceration of the great toe. No CT evidence of osteomyelitis. Soft tissue gas within the lateral soft tissues of the great toe either related to the ulcer or gas-forming bacterial infection. Associated phlegmonous change. No defined abscess. D/ / 01/22/2019 22:04:30 James France MD / [facility] Interpreting Provider: James France MD Consult Discharge Plan - Plan Referrals: Cher Pack, STATION MECHANIC APPRENTICE [Primary Care Provider] - - Attending Attestation I examined this patient and my medical decision-making was reviewed with the Resident Physician Dr Conroy. I agree with the documented findings, disposition and treatment plan as described except to the extent set forth below. Mr Birmingham is being observed for left great toe infection s/p amputation awake, denies fevers or chills, n/v. Eating, drinking, urinating and + flatus post op. Overnight had stabbing foot pain, controlled with prn pain meds, none currently gen- alert, awake,appears stated age cv- reg rate and rhythm, normal s1,s2 lungs- ctabl, norm resp effort room air skin- left foot/leg dressing c/d/i neuro- AAOx3 Diabetic L great toe ulcer CT with gas was reviewed by podiatry and suspected 2/2 ulcer not gas forming bacterias/p L hallux amputation by Dr Cabral 01/23/19 -post op care per podiatry, cont IV abx, ID consulted, cxs pending Uncontrolled DM- levemit + SSI, will make next adjustment in am pending today's SSI requirements and oral intake (Novolin 30 mg BID at home) Stable chronic HFpEF- cont home diuretic Stable Chronic CAD, no stent hx- no asa, plavix this morning as to OR, cont statin + BB, acei as BP permits, will discuss with Podiatry when able to resume further dx and plan as noted by resident <Odalys Conroy N - Last Filed: 01/24/19 16:50> Hospitalist Progress Note - Encounter Date of Encounter: 01/24/19 Time of Encounter: 08:49 - Subjective Interval History: Mr. Birmingham was seen and evaluated at the bedside this morning. He endorsed some continued pain in his foot, but he does report that it is improved from yesterday. He denies any fevers or chills, and voices no new complaints. Nursing staff reports no significant overnight events. - Exam Vitals: Temp Pulse Resp BP Pulse Ox 97.8 F 64 18 128/83 95 01/24/19 06:38 01/24/19 06:38 01/24/19 06:38 01/24/19 06:38 08/23/19 06:38 Exam: GENERAL: Well-developed, well-nourished adult male lying in bed in no acute distress. HEENT: Atraumatic and normocephalic. CARDIOVASCULAR: Regular rate and rhythm. S1 and S2 present. No murmurs, gallops, or rubs. RESPIRATORY: Clear to auscultation bilaterally. Chest rises and falls symmetric ally without accessory muscle use. GASTROINTESTINAL: Abdomen is soft, nontender, nondistended. EXTREMITIES: Surgical dressing present on left lower extremity is clean, dry, and intact. SKIN: Warm, dry, and intact. NEUROLOGIC: Alert and oriented x3. Patient is cooperative with exam and answers questions appropriately. No apparent focal deficits. PSYCHIATRIC: Appropriate mood and affect. - Assessment and Plan (1) Diabetic ulcer of toe Current Visit: Yes Status: Acute Assessment and Plan: S/p left great toe amputation by podiatry. - Continue postoperative care per podiatry. - Continue broad-spectrum antibiotic therapy with vancomycin and Zosyn. - Wound cultures pending. - Consult to infectious disease for recommendations regarding antibiotic therapy. (2) Uncontrolled diabetes mellitus Current Visit: Yes Status: Acute Assessment and Plan: History of diabetes. Patient was noted to have a significantly elevated serum glucose of 472 on initial laboratory studies. Hemoglobin A1c noted to be elevated to 11.9. - Continue Accu-Cheks and corrective high-dose SSI ACHS. - Levamir 20u QHS. (3) CHF (congestive heart failure) Current Visit: Yes Status: Acute Assessment and Plan: History of CHF. The patient does not appear to be having an acute exacerbation. - Continue home medications of metoprolol and simvastatin. - Home aspirin currently held secondary to recent procedure; anticipate resuming medication once cleared by podiatry. (4) CAD (coronary artery disease) Current Visit: No Status: Chronic Assessment and Plan: - Continue home medications of beta aliya and statin. Suspect resuming aspirin therapy once clear by podiatry. (5) BEN (obstructive sleep apnea) Current Visit: Yes Status: Acute Assessment and Plan: - BIPAP HS and PRN. (6) DVT prophylaxis Current Visit: Yes Status: Acute Assessment and Plan: - SCDs to right leg only. - Time Spent with Patient Total time spent is greater than 50% in coordination of care (as documented) at patient's floor/unit and/or counseling patient: Internal Medicine: Result - Labs CBC & Chem 7: 01/24/19 04:47 01/24/19 04:47 Labs: Short CBC 01/24/19 Range/Units 04:47 WBC 5.9 (4.3-11.1) K/mcL Hgb 13.3 (12.9-16.9) g/dL Hct 38.7 (37.5-50.1) % Plt Count 191 (140-400) K/mcL Neutrophils # 3.5 (1.6-8.9) K/mcL BMP 01/23/19 01/24/19 10:03 04:47 Sodium 137 138 Potassium 3.9 Chloride 103 Carbon Dioxide 24 BUN 18 Creatinine 0.93 Glucose 287 H Calcium 8.4 L - Impressions Impressions Foot CT 01/22/19 19:57 IMPRESSION: Large plantar ulceration of the great toe. No CT evidence of osteomyelitis. Soft tissue gas within the lateral soft tissues of the great toe either related to the ulcer or gas-forming bacterial infection. Associated phlegmonous change. No defined abscess. D/ / 01/22/2019 22:04:30 James France MD / [facility] Interpreting Provider: James France MD <Meche Arellano - Last Filed: 01/24/19 11:21> (3) Diabetic ulcer of toe Qualifiers: Diabetes mellitus type: type 2 Laterality: left Non-pressure ulcer stage: with necrosis of muscle Qualified Code(s): E11.621 - Type 2 diabetes mellitus with foot ulcer; L97.523 - Non-pressure chronic ulcer of other part of left foot with necrosis of muscle (4) Hyperglycemia due to type 2 diabetes mellitus Qualifiers: Diabetes mellitus snf insulin use: with press tender long goods use Qualified Co de(s): E11.65 - Type 2 diabetes mellitus with hyperglycemia; 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 <Odalys Conroy N - Last Filed: 01/24/19 16:50> (1) Diabetic ulcer of toe Qualifiers: Diabetes mellitus type: type 2 Laterality: left Non-pressure ulcer stage: with necrosis of muscle Qualified Code(s): E11.621 - Type 2 diabetes mellitus with foot ulcer; L97.523 - Non-pressure chronic ulcer of other part of left foot with necrosis of muscle (2) Uncontrolled diabetes mellitus Qualifiers: Diabetes mellitus type: type 2 Glycemic state: with hyperglycemia Qualified Code(s): E11.65 - Type 2 diabetes mellitus with hyperglycemia (3) CHF (congestive heart failure) Qualifiers: Heart failure type: unspecified Heart failure chronicity: chronic Qualified Code(s): I50.9 - Heart failure, unspecified (4) CAD (coronary artery disease) Qualifiers: Coronary Disease-Associated Artery/Lesion type: inupiat artery [place] vs. transplanted heart: inupiat heart Associated angina: without angina Qualified Code(s): I25.10 - Atherosclerotic heart disease of in[place]iat coronary artery without angina pectoris
[2019-01-24] MEDS: Furosemide 40 MG TABLET PO SCH (09:03)
[2019-01-24] MEDS: Gabapentin 300 MG CAPSULE PO SCH ×3 (09:03→21:13)
[2019-01-24] MEDS: Insulin LISPRO 300 UNITS/3 ML VIAL SQ SCH ×3 (09:14→17:46)
--- NOTE | 2019-01-24 13:52 | Podiatry Progress Note ---
Date of Encounter: 01/24/19 Time of Encounter: 12:00 - Assessment and Plan (1) Diabetic ulcer of toe Current Visit: Yes Status: Acute POD #1 amputation of toe #1 left Assessment complete at bedside CT pre-op with possible gas within the tissue ESR 18 CRP 76 WBC 5.9 A1c 11.9 and concerning for healing complications Dressing removed at bedside Cleansed with saline Margins will approximated and healing without concern There is regression of noted cellulitis Mild maceration to surgical line but otherwise no concerns. Toe was cleansed with saline Painted with betadine adaptic 4x4 and kerlix bulk dressing applied Secured with MANPREET wrap Continue with IV antibiotics- currently on vanc and zosyn Intra-op cultures obtained and pending SW consult for discharge planning Consider ID consult for IV antibiotic management Foot CT 01/22/19 19:57 IMPRESSION: Large plantar ulceration of the great toe. No CT evidence of osteomyelitis. Soft tissue gas within the lateral soft tissues of the great toe either related to the ulcer or gas-forming bacterial infection. Associated phlegmonous change. No defined abscess. 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 of muscle (2) Diabetes mellitus Current Visit: No Status: Acute Tight glucose control to promote healing and prevent further complication Patient has been non compliant with glucose control in the past Goal of Ha1c 7% or below Discussed carb and sugar control while at bedside as well as increased protein intake Discussed proper protein drink supplements once discharged and to avoid high carb high sugar shakes Consider dietary consult Qualifiers: Diabetes mellitus type: type 2 Diabetes mellitus group home insulin use: with group home use Diabetes mellitus complication status: with neurologic complications Diabetes mellitus complication detail: with polyneuropathy Qualified Code(s): E11.42 - Type 2 diabetes mellitus with diabetic polyneuropathy Subjective Principal diagnosis: soft tissue gas/abscess Interval history: POD #1 s/p amputation left hallux Resting comfortably. Denies pain or concerns Dressing to LLE clean dry and intact Denies any fevers, chills, n/v or fls. Objective - Vital Signs Vital Signs: Vital Signs Temp Pulse Resp BP Pulse Ox 01/24/19 11:30 98.9 F 76 18 147/86 94 01/24/19 06:38 97.8 F 64 18 128/83 95 01/24/19 06:13 97.5 F L 67 16 138/86 96 01/24/19 04:00 96.3 F L 72 20 137/85 93 01/24/19 01:27 97.1 F L 72 16 132/83 96 01/23/19 21:43 74 143/90 01/23/19 16:06 98.5 F 71 18 133/75 96 Intake and Output 01/23/19 01/24/19 01/24/19 23:59 07:59 15:59 Intake Total 100 / 2300 825 / 1305 480 / 1305 Output Total 15 / 15 Balance 100 / 2300 810 / 1290 480 / 1290 Intake: IV Fluids 100 / 2300 350 / 350 Zosyn 3.375 GM In 0.9 % Sodium 100 / 200 100 / 100 Chloride (Mini-Bag +) 100 ML @ 25 mls/hr IVPB Q8H [facility] Rx#: [id number] Vancocin 1,500 MG In 0.9 % 250 / 250 Sodium Chloride 250 ML @ 166. 667 mls/hr IVPB Q12H [facility] Rx#: [id number] Oral 475 / 955 480 / 955 Output: Urine 0 / 0 Estimated Blood Loss 15 / 15 Other: Meal Breakfast Percent of Meal Consumed 100% Weight 145.8 kg Blood Glucose* 173 244 283 Patient Weight 01/24/19 23:59 Weight 145.8 kg - Exam Exam: CONSTITUTIONAL: awake alert and oriented x3 VASCULAR: pulses palpable dp/pt, warm toes to tibia, cap refill <3 seconds, no calf pain with manual compression NEUROLOGICAL: Absent sensation to light and moderate touch. Complete loss of protective sensation MUSCULOSKELETAL: Muscle strength 5/5 and equal bilaterally SKIN:s/p amputation of left great toe Incision line assessed and healing well without concern. There was dry bloody drainage noted to dressing. no active bleeding noted Margins well approximated. mild maceration noted to tissue There is regression of margins of cellulitis noted on previous exam. mild edema warmth and erythema remains to foot however improved. There is a noted hyperkeratotic lesion sub mt head #5 left that is without appearance of infection or ulceration. - Lab Result Diagrams: 01/24/19 04:47 01/24/19 04:47 Labs: Abnormal lab results ESR 18 mm/hr (0-10) H 01/23/19 08:36 VBG pCO2 36 mmHg (41-51) L 01/22/19 20:39 VBG pO2 61 mmHg (25-50) H 01/22/19 20:39 Sodium 135 mEq/L (136-145) L 01/23/19 06:05 Carbon Dioxide 20 mEq/L (23-29) L 01/22/19 20:12 BUN 25 mg/dL (6-20) H 01/23/19 06:05 Glucose 287 mg/dL (70-105) H 01/24/19 04:47 POC Glucose 283 mg/dL (70-99) H 01/24/19 11:55 Hemoglobin A1c 11.9 % (-5.6) H 01/23/19 15:03 Calcium 8.4 mg/dL (8.6-10.3) L 01/24/19 04:47 C-Reactive Protein 76 mg/L (Less than 10) H 01/23/19 08:36 Beta-Hydroxybutyric Acd 0.33 mmol/L (0.02-0.27) H 01/22/19 20:12 Vancomycin Trough 13 mcg/mL (5-10) H 01/24/19 11:03 Microbiology, Last 48 Hours 01/23/19 08:25 Wound Culture - Preliminary Left Great Toe Culture is incubating. 01/24/19 00:57 Gram Stain - Final Left Great Toe 01/24/19 00:57 Gram Stain - Final Left Great Toe 01/24/19 00:57 Wound Culture - Preliminary Left Great Toe Culture is incubating. 01/24/19 00:57 Anaerobic Culture - Preliminary Left Great Toe Culture is incubating. 01/24/19 00:57 Wound Culture - Preliminary Left Great Toe Culture is incubating. 01/24/19 00:57 Anaerobic Culture - Preliminary Left Great Toe Culture is incubating. 01/22/19 20:12 Blood Culture - Preliminary Peripheral Venipuncture Culture is incubating and being continuously monitored for growth. Final report to follow. 01/22/19 20:12 Blood Culture - Preliminary Peripheral Venipuncture Culture is incubating and being continuously monitored for growth. Final report to follow. Consult Discharge Plan - Plan Referrals: Cher Pack CNP [Primary Care Provider] -
--- NOTE | 2019-01-24 14:00 | Procedure Note ---
Date of procedure: 01/24/19 Pre-op diagnosis: post op wound dehiscence Post-op diagnosis: same Procedure: at 1230 nurse caring for patient called to state that patient had stood to go to the bathroom and placed weight to foot and blood was immediately noted to be soaking through dressing Advised to remove dressing and hold pressure Dr. Cabral and myself to bedside Active bleeding had stopped at this time. Cleansed with saline- stat power applied to wound bed No further bleeding noted Painted with betadine 2-0 prolene used with sterile needle port cdl a driver to place 3 wide sutures and reapproximate wound margins Wound closure noted without evidence of bleeding No acute complications noted at this time again painted with betadine, adaptic, thick 4x4 kerlix and MANPREET placed Dressing to be left intact for the weekend Nurse to call with any further bleeding. Anesthesia: none Surgeon: Hayley Polo Was there an funeral assistant present: Yes Monotyper: Samuel Cabral Estimated blood loss (cc): 10 Specimen: none Pathology: none sent Condition: stable Disposition: no change
--- NOTE | 2019-01-24 16:01 | Infectious Disease Consult ---
Infectious Disease-Consult - Encounter Date/Time Date of Encounter: 01/24/19 Time of Encounter: 15:58 - Data of Consult Patient: new to practice Reason for consult: Left Great toe ulceration Consult date: 01/24/19 Requesting Physician: Meche Arellano Primary Care Provider: Cher Pack CNP - HPI HPI: Patient is a 58-year-old gentleman who presented to [place] on 01/22/2019 with left foot open wound ulceration. We are consulted for antibiotics recommendations. Patient is a 58-year-old gentleman with past medical history significant for diabetes mellitus type 2, dyslipidemia, hypertension, coronary artery disease, COPD and CHF and obstructive sleep apnea on CPAP presented to [place] with w orsening left foot great toe ulceration. Patient has been following chronically with wound care and podiatry with minimal success. Patient is not a great historian and most of the information was taken from medical records. Since admission, patient was afebrile, and one or 2 episodes of tachycardia and no tachypnea. Presenting labs reveal a WBC within normal limit and elevated glucose of 433. Patient had CT of the foot which revealed "large plantar ulceration of the great toe.The evidence of osteomyelitis. Soft tissue gas within the lateral soft tissue of the great toe either related to the ulcer or gas-forming bacterial infection. Associated phlegmonous change. No defined abscess. Patient was taken to the OR on 01/24/2019 where he had an amputation of the left hallux. Purulent drainage was noted intraoperatively which tracked proximally along the proximal phalanx laterally and stop just proximal to the base of the proximal phalanx. Intra-Op cultures and gram stains were sent. Patient was started on empiric vancomycin and Zosyn. We were asked to evaluate the patient and make further recommendations. Currently patient laying in bed appears comfortable has his CPAP on. He is a little drowsy and not the greatest historian. He denies any headaches no chest pain no shortness of breath no nausea no vomiting no diarrhea no urinary symptoms. Patient tells me pain is under control. - ROS Review of Systems: 10 point review of systems done, negative other for what is mentioned in history of present illness. - Results CBC & Chem 7: 01/24/19 04:47 01/24/19 04:47 - Exam Vitals: Temp Pulse Resp BP Pulse Ox 98.5 F 81 16 144/81 96 01/24/19 14:03 01/24/19 14:03 01/24/19 14:03 01/24/19 14:03 01/24/19 14:03 Exam: GENERAL: Laying in bed, appears comfortable. Morbidly obese. HEAD: Normocephalic atraumatic EYES: PERRLA, EOMI, no conjunctival hemorrhage, sclera anicteric ENT: Mucous membranes moist, no oral thrush NECK: Supple. No meningeal signs. No masses LUNGS: Chest expanding symmetrically. Lungs sounds audible both lung crews. No wheezing, no rhonchi CV: RRR, S1S2, ABDOMEN: Soft, nontender, nondistended. Bowel sounds audible EXTREMITY: Left great toe surgically wrapped. I did not unwrap that I read the note from podiatry. SKIN: Normal color. No rash. NEURO: Awake alert oriented 3. No obvious focal deficit PSYCH: Calm and appropriate. No agitation. Aspirin 81 mg PO HS 11/02/15 [History] Clopidogrel [Plavix] 75 mg PO DAILY 11/02/15 [History] Furosemide [Lasix] 20 - 40 mg PO BID PRN 11/02/15 [History] Gabapentin [Neurontin] 300 mg PO BID 11/02/15 [History] Lisinopril [Zestril] 20 mg PO DAILY 11/02/15 [History] Ergocalciferol (VITAMIN D2) [Vitamin D2] 50,000 units PO TH 01/23/19 [History] Insulin NPH Human Isophane [Novolin N] 30 unit SQ BID 01/23/19 [History] Metoprolol [Lopressor] 50 mg PO BID 01/23/19 [History] Multivitamin [Daily Multiple Vitamin] 1 tab PO DAILY 01/23/19 [History] Simvastatin [Zocor] 40 mg PO HS 01/23/19 [History] Tramadol HCl [Ultram] 50 mg PO Q6H PRN 01/23/19 [History] Ubidecarenone/Vit E Acetate [Co Q-10 100 mg Softgel] 100 mg PO DAILY 01/23/19 [History] carBAMazepine [Tegretol] 200 mg PO HS 01/23/19 [History] Allergy/AdvReac Type Severity Reaction Status Date / Time No Known Allergies Allergy Verified 01/23/19 18:07 - Assessment and Plan (1) Osteomyelitis of great toe of left foot Current Visit: Yes Status: Acute Status post amputation of the left hallux 01/24/2019 Intra-Op cultures with purulence and necrotic tissue Cultures pending Patient was started empirically on vancomycin and Zosyn Inflammatory markers noted Recommendations: Continue vancomycin for now with goal vancomycin trough around 15 Continue Zosyn for now Monitor kidney function closely Will tailor antibiotics once cultures are finalized We will probably due to weeks of IV antibiotics followed by oral antibiotics but were not sure at this point. We will continue to follow closely SNOMED Code(s): 489467414, 317466209, [id number] (2) Diabetes mellitus Current Visit: No Status: Acute Poorly controlled Glucose on admission 436 Most recent hemoglobin A1c 11.4 Qualifiers: Diabetes mellitus type: type 2 Diabetes mellitus termination clerk insulin use: with snf use Diabetes mellitus complication status: with neurologic complications Diabetes mellitus complication detail: with polyneuropathy Qualified Code(s): E11.42 - Type 2 diabetes mellitus with diabetic polyneuropathy SNOMED Code(s): 15303109 (3) CAD (coronary artery disease) Current Visit: No Status: Chronic Qualifiers: Coronary Disease-Associated Artery/Lesion type: [place] artery [place] vs. transplanted heart: [place] heart Associated angina: without angina Qualified Code(s): I25.10 - Atherosclerotic heart disease of [place] coronary artery [facility] angina pectoris SNOMED Code(s): 25030650 (4) BEN treated with BiPAP Current Visit: No Status: Chronic SNOMED Code(s): 69408023 (5) Morbid obesity with BMI of 40.0-44.9, adult Current Visit: Yes Status: Acute SNOMED Code(s): 773936559, 43068833684739 Past Med Surg Social Fam HX - Past Medical History Medical history: arthritis, asthma, CHF, COPD, coronary artery disease, diabetes, hyperlipidemia, hypertension Psychiatric history: anxiety, depression - Past Surgical History Surgical History: tonsillectomy Additional surgical history: heart cath, abscess I&D, - Social History Smoking Status: Never smoker Smokeless Tobacco Status: No Alcohol use: none Drug use: none - Family History Mother Family Member Ethnicity: Non- Living Status: Consult Discharge Plan - Plan Referrals: Cher Pack CNP [Primary Care Provider] -
[2019-01-24] MEDS: Acetaminophen 325 MG TABLET PO PRN (17:45)
[2019-01-24] MEDS ORDERED: Insulin DETEMIR 100 UNIT/ML X5UNITS SQ SCH (21:00)
[2019-01-24] MEDS: Furosemide 20 MG TABLET PO SCH (21:14)
[2019-01-25] MEDS: Piperacillin/Tazobactam 3.375 GM in 0.9 % Sodium Chloride Mini Bag 100 ML IVPB SCH ×3 (03:05→17:07)
[2019-01-25 04:31] LABS: Basophils % 0.5 %; Eosinophils # 0.1 K/mcL (0.0-0.6); Hematocrit 38.6 % (37.5-50.1); Hemoglobin 13.4 g/dL (12.9-16.9); Immature Granulocytes % 0.8 % (0-4); Lymphocytes # 1.8 K/mcL (0.6-4.6); Lymphocytes % 29.9 %; Mean Corpuscular HGB Conc 34.7 g/dL (31.6-35.5); Mean Corpuscular Hemoglobin 30.8 pg (28.0-33.3); Mean Corpuscular Volume 88.7 fL (83.0-100.0); Mean Platelet Volume 10.2 fL (9.4-12.4); Monocytes # 0.7 K/mcL (0.0-1.3); Monocytes % 11.7 %; Neutrophils # 3.3 K/mcL (1.6-8.9); Platelet Count 217 K/mcL (140-400); Red Blood Count 4.35 M/mcL (4.19-5.50); Red Cell Distribution Width 13.2 % (11.5-14.5); Segmented Neutrophils % 55.1 %; White Blood Count 5.9 K/mcL (4.3-11.1)
[2019-01-25 04:50] LABS: BUN/Creatinine Ratio 24 (6-26); Blood Urea Nitrogen 24 mg/dL (6-20); Calcium 8.9 mg/dL (8.6-10.3); Carbon Dioxide 28 mEq/L (23-29); Chloride 101 mEq/L (98-107); Glucose 248 mg/dL (70-105); Osmolality,Calculated 296 (280-300); Potassium 3.7 mEq/L (3.5-5.1); Sodium 137 mEq/L (136-145); eGFR For African Americans > 60 (> 60); eGFR For Non-African Americans > 60 (> 60)
[2019-01-25] MEDS: Acetaminophen 325 MG TABLET PO PRN ×3 (04:51→18:50)
--- NOTE | 2019-01-25 07:08 | Internal Med Progress Note ---
Hospitalist Progress Note - Encounter Date of Encounter: 01/25/19 Time of Encounter: 09:30 - Subjective Interval History: awake, no fevers or chills, pain very well controlled. no n/v. eating and drinking, moving bowels. encouraged to stay off foot given bleeding yesterday. He confirmed he has never had stents placed and ok to hold asa + plavix while monitoring for further bleeding - Exam Vitals: Temp Pulse Resp BP Pulse Ox 97.6 F 74 18 134/80 94 01/25/19 03:44 01/25/19 03:44 01/25/19 03:44 01/25/19 03:44 01/25/19 03:44 Exam: gen- alert, awake,appears stated age cv- reg rate and rhythm, normal s1,s2, no le edema lungs- ctabl, norm resp effort room air skin- left foot/leg dressing c/d/i neuro- AAOx3 - Assessment and Plan (1) Amputation toe Current Visit: Yes Status: Acute (2) Diabetic ulcer of toe Current Visit: Yes Status: Acute (3) Hyperglycemia due to type 2 diabetes mellitus Current Visit: Yes Status: Acute - Summary of Assessment and Plan Summary of Assessment and Plan: Diabetic L great toe ulcer CT with gas was reviewed by podiatry and suspected 2/2 ulcer not gas forming bacteria s/p L hallux amputation by Dr Cabral 01/23/19 -post op care per podiatry, cont IV abx Vanc + Zosyn, ID following, cxs pending, to cont on IV abx in upcoming days pending finalization of cxs -holding home asa + plavix given he tore a suture yesterday with bleeding, cont to monitor for appropriateness of resuming Uncontrolled DM- Humulin + SSI, daily insulin adjustments as needed,on review of last 24h SSI requirements he is nearing his home dose requirement (Novolin 30 mg BID at home), increased to Humulin 20 BID after discussion with pharmacist of substitution for Novolin Stable chronic HFpEF- cont home diuretic Stable Chronic CAD, no stent hx- no asa, plavix due to post op bleeding yesterday, cont statin + BB+ acei , will discuss with Podiatry when able to resume vte ppx scd right leg Internal Medicine: Result - Labs CBC & Chem 7: 01/25/19 04:06 01/25/19 04:06 Labs: Short CBC 01/25/19 Range/Units 04:06 WBC 5.9 (4.3-11.1) K/mcL Hgb 13.4 (12.9-16.9) g/dL Hct 38.6 (37.5-50.1) % Plt Count 217 (140-400) K/mcL Neutrophils # 3.3 (1.6-8.9) K/mcL BMP 01/25/19 04:06 Sodium 137 Potassium 3.7 Chloride 101 Carbon Dioxide 28 BUN 24 H Creatinine 1.00 Glucose 248 H Calcium 8.9 Consult Discharge Plan - Plan Referrals: Cher Pack, BURLESQUE DANCER [Primary Care Provider] - ____ (2) Diabetic ulcer of toe Qualifiers: Diabetes mellitus type: type 2 Laterality: left Non-pressure ulcer stage: with necrosis of muscle Qualified Code(s): E11.621 - Type 2 diabetes mellitus with foot ulcer; L97.523 - Non-pressure chronic ulcer of other part of left foot with necrosis of muscle (3) Hyperglycemia due to type 2 diabetes mellitus Qualifiers: Diabetes mellitus senior care insulin use: with senior care use Qualified Code(s): E11.65 - Type 2 diabetes mellitus with hyperglycemia; 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
[2019-01-25] MEDS: Furosemide 40 MG TABLET PO SCH (08:43)
[2019-01-25] MEDS: Gabapentin 300 MG CAPSULE PO SCH ×3 (08:43→19:59)
[2019-01-25] MEDS: Insulin LISPRO 300 UNITS/3 ML VIAL SQ SCH ×4 (08:44→20:54)
[2019-01-25] MEDS ORDERED: Insulin NPH 100 UNIT/ML (x5UNIT) SQ SCH ×2 (12:43→13:00)
[2019-01-25] MEDS ORDERED: Insulin DETEMIR 100 UNIT/ML X5UNITS SQ SCH (12:45)
[2019-01-25] MEDS: Lisinopril 20 MG TABLET PO SCH (13:57)
[2019-01-25] MEDS: carBAMazepine 200 MG TABLET PO SCH (19:58)
[2019-01-25] MEDS: Furosemide 20 MG TABLET PO SCH (19:59)
[2019-01-26] MEDS: Piperacillin/Tazobactam 3.375 GM in 0.9 % Sodium Chloride Mini Bag 100 ML IVPB SCH ×3 (02:06→17:49)
[2019-01-26 07:34] LABS: BUN/Creatinine Ratio 21 (6-26); Blood Urea Nitrogen 22 mg/dL (6-20); Carbon Dioxide 30 mEq/L (23-29); Chloride 100 mEq/L (98-107); Glucose 333 mg/dL (70-105); Osmolality,Calculated 304 (280-300); Potassium 3.8 mEq/L (3.5-5.1); Sodium 139 mEq/L (136-145); eGFR For African Americans > 60 (> 60); eGFR For Non-African Americans > 60 (> 60)
--- NOTE | 2019-01-26 07:42 | Internal Med Progress Note ---
Hospitalist Progress Note - Encounter Date of Encounter: 01/26/19 Time of Encounter: 09:40 - Subjective Interval History: awake, at bedside, no pain in foot today, denies fevers, chills, n/v. - Exam Vitals: Temp Pulse Resp BP Pulse Ox 98.4 F 75 18 161/96 95 01/26/19 07:21 01/26/19 07:21 01/26/19 07:21 01/26/19 07:21 01/26/19 07:21 Exam: gen- alert, awake,appears stated age, obese cv- reg rate and rhythm, normal s1,s2, no le edema lungs- ctabl, norm resp effort room air skin- left foot/leg dressing c/d/i neuro- AAOx3, LE sensation to light touch intact - Assessment and Plan (1) Amputation toe Current Visit: Yes Status: Acute (2) Diabetic ulcer of toe Current Visit: Yes Status: Acute (3) Hyperglycemia due to type 2 diabetes mellitus Current Visit: Yes Status: Acute - Summary of Assessment and Plan Summary of Assessment and Plan: Diabetic L great toe ulcer CT with gas was reviewed by podiatry and suspected 2/2 ulcer not gas forming bacteria s/p L hallux amputation by Dr Cabral 01/23/19 -post op care per podiatry, cont IV abx Vanc + Zosyn, ID following, cxs pending, to cont on IV abx pending finalization of cxs -holding home asa + plavix given he tore a suture yesterday with bleeding, cont to monitor for appropriateness of resuming Uncontrolled DM- Humulin + SSI, daily insulin adjustments as needed, -he only received one dose of his ordered Humulin 20 BID yesterday, hold further adjustments today and monitor on ordered dose Stable chronic HFpEF- cont home diuretic Stable Chronic CAD, no stent hx- no asa, plavix due to post op bleeding, cont statin + BB+ acei , awaiting podiatry inpt regarding when can resume vte ppx scd right leg Internal Medicine: Result - Labs CBC & Chem 7: 01/25/19 04:06 01/26/19 06:28 Labs: BMP 01/26/19 06:28 Sodium 139 Potassium 3.8 Chloride 100 Carbon Dioxide 30 H BUN 22 H Creatinine 1.03 Glucose 333 H Calcium 9.0 - VTE Documentation of Mechanical Device: Intermittent pneumatic compression device Consult Discharge Plan - Plan Referrals: Cher Pack, SALVAGE INSPECTOR [Primary Care Provider] - (2) Diabetic ulcer of toe Qualifiers: Diabetes mellitus type: type 2 Laterality: left Non-pressure ulcer stage: with necrosis of muscle Qualified Code(s): E11.621 - Type 2 diabetes mellitus with foot ulcer; L97.523 - Non-pressure chronic ulcer of other part of left foot with necrosis of muscle (3) Hyperglycemia due to type 2 diabetes mellitus Qualifiers: Diabetes mellitus residential insulin use: with ferry terminal agent use Qualified Code(s): E11.65 - Type 2 diabetes mellitus with hyperglycemia; Z79.4 - FPC (current) use of insulin
[2019-01-26] MEDS: Insulin LISPRO 300 UNITS/3 ML VIAL SQ SCH ×4 (09:03→22:05)
[2019-01-26] MEDS: Insulin NPH 100 UNIT/ML (x5UNIT) SQ SCH ×2 (09:03→16:55)
[2019-01-26] MEDS: Multivit/Ca/Min/Fe/FA 1 TAB TABLET PO SCH (09:05)
[2019-01-26] MEDS: Furosemide 40 MG TABLET PO SCH (09:05)
[2019-01-26] MEDS: Lisinopril 20 MG TABLET PO SCH (09:05)
[2019-01-26] MEDS: Gabapentin 300 MG CAPSULE PO SCH ×3 (09:05→20:20)
[2019-01-26] MEDS: carBAMazepine 200 MG TABLET PO SCH (20:20)
[2019-01-26] MEDS: Furosemide 20 MG TABLET PO SCH (20:20)
[2019-01-26] MEDS: Acetaminophen 325 MG TABLET PO PRN (20:23)
[2019-01-27] MEDS: Piperacillin/Tazobactam 3.375 GM in 0.9 % Sodium Chloride Mini Bag 100 ML IVPB SCH ×2 (01:30→11:02)
[2019-01-27 05:45] LABS: Basophils % 0.7 %; Eosinophils # 0.1 K/mcL (0.0-0.6); Eosinophils % 2.2 %; Hematocrit 37.8 % (37.5-50.1); Lymphocytes # 1.6 K/mcL (0.6-4.6); Lymphocytes % 27.4 %; Mean Corpuscular HGB Conc 34.4 g/dL (31.6-35.5); Mean Corpuscular Volume 87.3 fL (83.0-100.0); Mean Platelet Volume 10.1 fL (9.4-12.4); Monocytes # 0.6 K/mcL (0.0-1.3); Monocytes % 9.7 %; Neutrophils # 3.5 K/mcL (1.6-8.9); Platelet Count 234 K/mcL (140-400); Red Blood Count 4.33 M/mcL (4.19-5.50); Red Cell Distribution Width 13.2 % (11.5-14.5); White Blood Count 5.9 K/mcL (4.3-11.1)
[2019-01-27 06:12] LABS: BUN/Creatinine Ratio 24 (6-26); Blood Urea Nitrogen 25 mg/dL (6-20); Carbon Dioxide 29 mEq/L (23-29); Chloride 101 mEq/L (98-107); Glucose 320 mg/dL (70-105); Osmolality,Calculated 305 (280-300); Potassium 3.6 mEq/L (3.5-5.1); Sodium 139 mEq/L (136-145); eGFR For African Americans > 60 (> 60); eGFR For Non-African Americans > 60 (> 60)
--- NOTE | 2019-01-27 08:00 | Internal Med Progress Note ---
<Meche Arellano - Last Filed: 01/27/19 15:55> Hospitalist Progress Note - Encounter Date of Encounter: 01/27/19 - Exam Vitals: Temp Pulse Resp BP Pulse Ox 98.8 F 74 15 151/84 92 01/27/19 14:13 01/27/19 14:13 01/27/19 14:13 01/27/19 14:13 01/27/19 14:13 - Assessment and Plan (1) Amputation toe Current Visit: Yes Status: Acute (2) Diabetic ulcer of toe Current Visit: Yes Status: Acute (3) Hyperglycemia due to type 2 diabetes mellitus Current Visit: Yes Status: Acute - Time Spent with Patient Total time spent is greater than 50% in coordination of care (as documented) at patient's floor/unit and/or counseling patient: Internal Medicine: Result - Labs CBC & Chem 7: 01/27/19 05:09 01/27/19 05:09 Labs: Short CBC 01/27/19 Range/Units 05:09 WBC 5.9 (4.3-11.1) K/mcL Hgb 13.0 (12.9-16.9) g/dL Hct 37.8 (37.5-50.1) % Plt Count 234 (140-400) K/mcL Neutrophils # 3.5 (1.6-8.9) K/mcL BMP 01/27/19 05:09 Sodium 139 Potassium 3.6 Chloride 101 Carbon Dioxide 29 BUN 25 H Creatinine 1.03 Glucose 320 H Calcium 9.0 Consult Discharge Plan - Plan Referrals: Cher Pack, FRONT SERVICES AGENT [Primary Care Provider] - - Attending Attestation I examined this patient and my medical decision-making was reviewed with the Resident Physician Dr Cummings. I agree with the documented findings, disposition and treatment plan as described except to the extent set forth below. Mr Birmingham is being observed for left great toe infection s/p amputation awake, denies fevers or chills, no complaints today. Has not had bleeding form site gen- alert, awake,appears stated age cv- reg rate and rhythm, normal s1,s2 lungs- ctabl, norm resp effort room air neuro- AAOx3 Diabetic L great toe ulcer CT with gas was reviewed by podiatry and suspected 2/2 ulcer not gas forming bacteria s/p L hallux amputation by Dr Cabral 01/23/19 -post op care per podiatry, appreciate ID input, dc vanc + zosyn, begin cefepime and cont while here then levaquin on dc -will resume home asa + plavix on dc Uncontrolled DM- Humulin + SSI, insulin adjusted for this evening, will monitor bs today and overnight, if controlled and at goal will likely be able to dc in am to assure best chance for wound healing Stable Chronic CAD, no stent hx- will resume asa + plavix on dc cont statin + BB+ acei vte ppx scd right leg <James Cummings - Last Filed: 01/27/19 18:07> Hospitalist Progress Note - Encounter Date of Encounter: 01/27/19 Time of Encounter: 08:00 - Subjective Interval History: No acute events overnight, only acute complaint this morning is pain in his hands. He states he is not having any postop pain in the left foot. - Exam Vitals: Temp Pulse Resp BP Pulse Ox 98.4 F 69 15 158/86 92 01/27/19 06:53 01/27/19 06:53 01/27/19 06:53 01/27/19 06:53 01/27/19 06:53 Exam: gen- alert, awake,appears stated age, obese cv- reg rate and rhythm, normal s1,s2, no le edema lungs- ctabl, norm resp effort room air Abdomen soft and nontender, normal bowel sounds noted skin- left foot/leg dressing c/d/i neuro- AAOx3, LE sensation to light touch diminished but intact - Assessment and Plan (1) Status post amputation of left great toe Current Visit: Yes Status: Acute Assessment and Plan: Patient was admitted with diabetic ulcer of left great toe Evaluation with CT demonstrated gas, left hallux amputation performed by podiatry on 01/23/19 Postop care per podiatry, infectious disease consultation was requested for antibiotic recommendations Podiatry okay with discharge and outpatient follow-up, infectious disease recommending IV cefepime in-house and discharge with oral Levaquin Oral Levaquin will be continued until 02/08, appreciate infectious disease evaluation and recommendations Due to patient's poorly controlled blood sugar we will keep him one further day and reassess discharge tomorrow (2) Diastolic heart failure Current Visit: No Status: Chronic Assessment and Plan: Stable, with associated CAD, we will resume aspirin and Plavix at discharge (were held for surgery) Continue statin/beta aliya/MANPREET inhibitor (3) Uncontrolled diabetes mellitus Current Visit: Yes Status: Chronic Assessment and Plan: Patient is uncontrolled diabetic, we have been titrating basal insulin and sliding scale insulin here Basal insulin increased to 30 twice a day today, with continued medium dose sliding scale insulin We will continue to monitor overnight and in a.m., goal to control blood sugar for wound healing prior to discharge (4) BEN (obstructive sleep apnea) Current Visit: No Status: Chronic (5) Osteomyelitis of great toe of left foot Current Visit: Yes Status: Acute (6) Morbid obesity with BMI of 40.0-44.9, adult Current Visit: No Status: Chronic - Time Spent with Patient Total time spent is greater than 50% in coordination of care (as documented) at patient's floor/unit and/or counseling patient: Internal Medicine: Result - Labs CBC & Chem 7: 01/27/19 05:09 01/27/19 05:09 Labs: Short CBC 01/27/19 Range/Units 05:09 WBC 5.9 (4.3-11.1) K/mcL Hgb 13.0 (12.9-16.9) g/dL Hct 37.8 (37.5-50.1) % Plt Count 234 (140-400) K/mcL Neutrophils # 3.5 (1.6-8.9) K/mcL BMP 01/27/19 05:09 Sodium 139 Potassium 3.6 Chloride 101 Carbon Dioxide 29 BUN 25 H Creatinine 1.03 Glucose 320 H Calcium 9.0 - VTE Documentation of Mechanical Device: Intermittent pneumatic compression device <Meche Arellano - Last Filed: 01/27/19 15:55> (2) Diabetic ulcer of toe Qualifiers: Diabetes mellitus type: type 2 Laterality: left Non-pressure ulcer stage: with necrosis of muscle Qualified Code(s): E11.621 - Type 2 diabetes mellitus with foot ulcer; L97.523 - Non-pressure chronic ulcer of other part of left foot with necrosis of muscle (3) Hyperglycemia due to type 2 diabetes mellitus Qualifiers: Diabetes mellitus chcf insulin use: with exterminator helper use Qualified Code(s): E11.65 - Type 2 diabetes mellitus with hyperglycemia; Z79.4 - residential (current) use of insulin <James Cummings - Last Filed: 01/27/19 18:07> (2) Diastolic heart failure Qualifiers: Heart failure chronicity: chronic Qualified Code(s): I50.32 - Chronic diastolic (congestive) heart failure (3) Uncontrolled diabetes mellitus Qualifiers: Diabetes mellitus type: type 2 Glycemic state: with hyperglycemia Qualified Code(s): E11.65 - Type 2 diabetes mellitus with hyperglycemia
[2019-01-27] MEDS: Furosemide 40 MG TABLET PO SCH (09:08)
[2019-01-27] MEDS: Lisinopril 20 MG TABLET PO SCH (09:08)
[2019-01-27] MEDS: Gabapentin 300 MG CAPSULE PO SCH ×3 (09:08→21:25)
[2019-01-27] MEDS: Multivit/Ca/Min/Fe/FA 1 TAB TABLET PO SCH (09:09)
[2019-01-27] MEDS: Insulin NPH 100 UNIT/ML (x5UNIT) SQ SCH ×2 (09:09→17:37)
[2019-01-27] MEDS: Acetaminophen 325 MG TABLET PO PRN ×2 (09:10→21:27)
[2019-01-27] MEDS: Insulin LISPRO 300 UNITS/3 ML VIAL SQ SCH ×4 (09:10→21:27)
--- NOTE | 2019-01-27 12:23 | Infectious Disease Progress No ---
ID Progress Note Date of Encounter: 01/27/19 Time of Encounter: 12:16 - Subjective Subjective: Patient seen and examined. Appears comfortable. Laying in bed and has his CPAP on. Patient denies any CM, no CP no cough, no diarrhea. no abdominal pain no urinary symptoms. Had BM yesterday VS Afebrile Labs reviewed Cultures: Reviewed - Objective CBC & Chem 7: 01/27/19 05:09 01/27/19 05:09 - Exam Vitals: Temp Pulse Resp BP Pulse Ox 98.3 F 73 15 134/75 96 01/27/19 10:21 01/27/19 10:21 01/27/19 10:21 01/27/19 10:21 01/27/19 10:21 Exam: GENERAL: Comfortable. Laying in bed NAD HEENT: ALISHA, EOMI LUNGS: Good air sounds bilaterally, no wheezing or rhonchi CV: RRR, S1 S2 ABDOMEN: Soft, nontender, + bowel sounds NEURO: A&OX3; no focal deficit - Assessment and Plan (1) Osteomyelitis of great toe of left foot Current Visit: Yes Status: Acute Status post amputation of the left hallux 01/24/2019 Intra-Op cultures with purulence and necrotic tissue Cultures: Morganella morganii R Unasyn, Augmentin, cefazolin, Bactrim, tobramycin Pseudomonas aeruginosa pansensitive Streptococcus anginosos Patient was started empirically on vancomycin and Zosyn Inflammatory markers noted Recommendations: d/c vancomycin d/c zosyn start cefepime 2 grams IV q12 hours d/w Dr. Cabral we feels that he took out all the infected part, will continue IV Abx while inhouse. on D/C switch to levofloxacin 750 mg daily through february 08 Monitor kidney function closely We will continue to follow closely SNOMED Code(s): 352060064, 682087517, [id number] (2) Diabetes mellitus Current Visit: No Status: Acute Poorly controlled Glucose on admission 436 Most recent hemoglobin A1c 11.4 Qualifiers: Diabetes mellitus type: type 2 Diabetes mellitus intermediate teacher insulin use: with residential use Diabetes mellitus complication status: with neurologic complications Diabetes mellitus complication detail: with polyneuropathy Qualified Code(s): E11.42 - Type 2 diabetes mellitus with diabetic polyneuropathy SNOMED Code(s): 84817081 (3) CAD (coronary artery disease) Current Visit: No Status: Chronic Qualifiers: Coronary Disease-Associated Artery/Lesion type: [place] artery [place] vs. transplanted heart: [place] heart Associated angina: without angina Qualified Code(s): I25.10 - Atherosclerotic heart disease of [place] coronary artery without angina pectoris SNOMED Code(s): 54136102 (4) BEN treated with BiPAP Current Visit: No Status: Chronic SNOMED Code(s): 54003479 (5) Morbid obesity with BMI of 40.0-44.9, adult Current Visit: Yes Status: Acute SNOMED Code(s): 935029824, [id number] - VTE Documentation of Mechanical Device: Intermittent pneumatic compression device Consult Discharge Plan - Plan Referrals: Cher Pack CNP [Primary Care Provider] -
[2019-01-27] MEDS ORDERED: Aminoglycoside Consult 1 EACH MC ONE (12:40)
--- NOTE | 2019-01-27 14:42 | Podiatry Progress Note ---
Date of Encounter: 01/27/19 Time of Encounter: 14:40 - Assessment and Plan (1) Diabetic ulcer of toe Current Visit: Yes Status: Acute Assessment: S/P amputation left hallux on 01/24/[address] Cabral Incision well approximated proximally and distally Centrally wound previously dehisced and has wide retention sutures in place Minimal erythema and edema noted WBC 5.9, afebrile Surgical cultures returned moranella de paz., psuedomonas, and strep anginosus Plan: Dressing change completed, see below OK to d/c on po ATB- ID following will defer to for recommendations Follow up in wound care center with Dr. Cabral, please make appointment prior to d/c Surgical shoe ordered, heel weight bearing only, limited ambulation Do not change dressing until seen in C Cleansed with 0.9 NS Painted with betadine, covered incision with adaptic, 4x4 dry gauze, and kerlix Bullae noted to left lower extremity Painted with betadine, covered with adaptic, 4x4 dry gauze, and kerlix Secured with MANPREET wrap Qualifiers: Diabetes mellitus type: type 2 Laterality: left Non-pressure ulcer stage: with necrosis of muscle Qualified Code(s): E11.621 - Type 2 diabetes mellitus with foot ulcer; L97.523 - Non-pressure chronic ulcer of other part of left foot with necrosis of muscle Subjective Principal diagnosis: soft tissue gas/abscess Interval history: Patient awake in bed. Alert and oriented x 3. Denies any fevers, chills, nausea, vomiting, or diarrhea. Denies any calf pain or chest pain. Reports chronic shortness of breath d/t COPD. Currently on CPAP machine. Reports he would like to go home today. No other questions or concerns at this time. Objective - Vital Signs Vital Signs: Vital Signs Temp Pulse Resp BP Pulse Ox 01/27/19 14:13 98.8 F 74 15 151/84 92 01/27/19 10:21 98.3 F 73 15 134/75 96 01/27/19 06:53 98.4 F 69 15 158/86 92 01/27/19 04:00 97.5 F L 71 20 147/75 95 01/26/19 22:31 98.5 F 76 20 122/77 94 01/26/19 19:06 98.5 F 82 20 129/72 94 Intake and Output 01/26/19 01/27/19 01/27/19 23:59 07:59 15:59 Intake Total 1300 / 3560 900 / 1940 1040 / 1940 Output Total 1200 / 2625 1425 / 2625 Balance 1300 / 1860 -300 / -685 -385 / -685 Intake: IV Fluids 700 / 1050 600 / 600 Zosyn 3.375 GM In 0.9 % Sodium 200 / 300 100 / 100 Chloride (Mini-Bag +) 100 ML @ 25 mls/hr IVPB Q8H [facility] Rx#: [id number] Vancocin 1,750 MG In 0.9 % 500 / 500 500 / 500 Sodium Chloride 500 ML @ 333. 333 mls/hr IVPB Q12H [facility] Rx#: [id number] Oral 600 / 2510 300 / 1340 1040 / 1340 Output: Urine 1200 / 2625 1425 / 2625 Other: Meal Lunch Percent of Meal Consumed 100% Weight 147.9 kg Blood Glucose* 246 303 369 Patient Weight 01/27/19 23:59 Weight 147.9 kg - Exam Exam: Constitiutional: Alert and oriented x 3. Well nourished. No acute distress noted Vascular: 1/4 DP/PT LLE, CFT <3 sec to all digits, warm to warm from tibia to toes LLE Neurologic: Absent sensation to touch, normal plantar response Dermatologic: Incision noted to left 1st metatarsal, central wound dehiscence with retention sutures noted, proximally and distally well approximated, minimal erythema and edema noted, no active drainage noted, discoloration noted to LLE with bullae noted Musculoskeletal: 3/5 muscle strength and normal tone LLE - Lab Result Diagrams: 01/27/19 05:09 01/27/19 05:09 Labs: Abnormal lab results ESR 18 mm/hr (0-10) H 01/23/19 08:36 VBG pCO2 36 mmHg (41-51) L 01/22/19 20:39 VBG pO2 61 mmHg (25-50) H 01/22/19 20:39 Sodium 135 mEq/L (136-145) L 01/23/19 06:05 Carbon Dioxide 30 mEq/L (23-29) H 01/26/19 06:28 BUN 25 mg/dL (6-20) H 01/27/19 05:09 Glucose 320 mg/dL (70-105) H 01/27/19 05:09 POC Glucose 277 mg/dL (70-99) H 01/26/19 16:57 Hemoglobin A1c 11.9 % (-5.6) H 01/23/19 15:03 Calculated Osmolality 305 (280-300) H 01/27/19 05:09 Calcium 8.4 mg/dL (8.6-10.3) L 01/24/19 04:47 C-Reactive Protein 76 mg/L (Less than 10) H 01/23/19 08:36 Beta-Hydroxybutyric Acd 0.33 mmol/L (0.02-0.27) H 01/22/19 20:12 Vancomycin Trough 13 mcg/mL (5-10) H 01/26/19 13:01 Microbiology, Last 48 Hours 01/23/19 08:25 Wound Culture - Preliminary Left Great Toe Morganella dot. ssp sibonii Gram Negative Darni#2 Gram Negative Darin 01/24/19 00:57 Wound Culture - Final Left Great Toe Morganella dot. ssp sibonii Pseudomonas aeruginosa Streptococcus anginosus 01/24/19 00:57 Wound Culture - Final Left Great Toe Morganella dot. ssp sibonii Pseudomonas aeruginosa Streptococcus anginosus 01/24/19 00:57 Anaerobic Culture - Preliminary Left Great Toe At this time, no anaerobic growth is present. The culture will be finalized after 5 days of incubation. - VTE Documentation of Mechanical Device: Intermittent pneumatic compression device Consult Discharge Plan - Plan Referrals: Cher Pack, [employer]CHNICIAN [Primary Care Provider] -
[2019-01-27] MEDS: Cefepime HCl 2,000 MG in 0.9 % Sodium Chloride Mini Bag 100 ML IVPB SCH (17:36)
[2019-01-27] MEDS: carBAMazepine 200 MG TABLET PO SCH (21:24)
[2019-01-27] MEDS: Furosemide 20 MG TABLET PO SCH (21:25)
[2019-01-28] MEDS: Cefepime HCl 2,000 MG in 0.9 % Sodium Chloride Mini Bag 100 ML IVPB SCH (05:13)
[2019-01-28 06:24] LABS: Basophils % 0.7 %; Eosinophils # 0.1 K/mcL (0.0-0.6); Eosinophils % 2.3 %; Hematocrit 40.5 % (37.5-50.1); Hemoglobin 13.8 g/dL (12.9-16.9); Immature Granulocytes % 0.5 % (0-4); Lymphocytes # 1.5 K/mcL (0.6-4.6); Lymphocytes % 26.2 %; Mean Corpuscular HGB Conc 34.1 g/dL (31.6-35.5); Mean Corpuscular Hemoglobin 29.9 pg (28.0-33.3); Mean Corpuscular Volume 87.9 fL (83.0-100.0); Mean Platelet Volume 9.8 fL (9.4-12.4); Monocytes # 0.5 K/mcL (0.0-1.3); Monocytes % 9.4 %; Neutrophils # 3.5 K/mcL (1.6-8.9); Platelet Count 261 K/mcL (140-400); Red Blood Count 4.61 M/mcL (4.19-5.50); Red Cell Distribution Width 13.5 % (11.5-14.5); Segmented Neutrophils % 60.9 %; White Blood Count 5.7 K/mcL (4.3-11.1)
[2019-01-28 06:47] LABS: BUN/Creatinine Ratio 28 (6-26); Blood Urea Nitrogen 25 mg/dL (6-20); Calcium 9.3 mg/dL (8.6-10.3); Carbon Dioxide 31 mEq/L (23-29); Chloride 100 mEq/L (98-107); Glucose 248 mg/dL (70-105); Osmolality,Calculated 305 (280-300); Potassium 3.8 mEq/L (3.5-5.1); Sodium 141 mEq/L (136-145); eGFR For African Americans > 60 (> 60); eGFR For Non-African Americans > 60 (> 60)
--- NOTE | 2019-01-28 08:01 | Discharge Summary ---
<Meche Arellano - Last Filed: 01/28/19 12:24> Orders not resulted at time of discharge: Pending orders 01/23/19 08:25 Culture,Wound [RM] Stat 01/24/19 00:57 Culture,Anaerobic [RM] Routine Culture,Anaerobic [RM] Routine Surgical Pathology [PTH] Routine Date of Encounter: 01/28/19 - Discharge Diagnosis (1) Amputation toe Status: Acute (2) Diabetic ulcer of toe Status: Acute Qualifiers: Diabetes mellitus type: type 2 Laterality: left Non-pressure ulcer stage: with necrosis of muscle Qualified Code(s): E11.621 - Type 2 diabetes mellitus with foot ulcer; L97.523 - Non-pressure chronic ulcer of other part of left foot with necrosis of muscle (3) Hyperglycemia due to type 2 diabetes mellitus Status: Acute Qualifiers: Diabetes mellitus skilled nursing insulin use: with buttermaker continuous churn use Qualified Code(s): E11.65 - Type 2 diabetes mellitus with hyperglycemia; 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 Birmingham is a 58 year old male - Time Spent with Patient Total time spent providing and/or coordinating discharge services: Time spent: Greater than 30 minutes (40 min) - Discharge Medications Prescriptions: New levoFLOXacin [Levaquin] 750 mg PO DAILY 11 Days #11 tablet Continued Aspirin 81 mg PO HS Lisinopril [Zestril] 20 mg PO DAILY Gabapentin [Neurontin] 300 mg PO BID Clopidogrel [Plavix] 75 mg PO DAILY Furosemide [Lasix] 20 - 40 mg PO BID PRN PRN Reason: SWELLING Insulin NPH Human Isophane [Novolin N] 30 unit SQ BID carBAMazepine [Tegretol] 200 mg PO HS Ergocalciferol (VITAMIN D2) [Vitamin D2] 50,000 units PO TH Metoprolol [Lopressor] 50 mg PO BID Multivitamin [Daily Multiple Vitamin] 1 tab PO DAILY Simvastatin [Zocor] 40 mg PO HS Tramadol HCl [Ultram] 50 mg PO Q6H PRN PRN Reason: Pain Ubidecarenone/Vit E Acetate [Co Q-10 100 mg Softgel] 100 mg PO DAILY Home Medications: Aspirin 81 mg PO HS 11/02/15 [History] Clopidogrel [Plavix] 75 mg PO DAILY 11/02/15 [History] Furosemide [Lasix] 20 - 40 mg PO BID PRN 11/02/15 [History] Gabapentin [Neurontin] 300 mg PO BID 11/02/15 [History] Lisinopril [Zestril] 20 mg PO DAILY 11/02/15 [History] Ergocalciferol (VITAMIN D2) [Vitamin D2] 50,000 units PO TH 01/23/19 [History] Insulin NPH Human Isophane [Novolin N] 30 unit SQ BID 01/23/19 [History] Metoprolol [Lopressor] 50 mg PO BID 01/23/19 [History] Multivitamin [Daily Multiple Vitamin] 1 tab PO DAILY 01/23/19 [History] Simvastatin [Zocor] 40 mg PO HS 01/23/19 [History] Tramadol HCl [Ultram] 50 mg PO Q6H PRN 01/23/19 [History] Ubidecarenone/Vit E Acetate [Co Q-10 100 mg Softgel] 100 mg PO DAILY 01/23/19 [History] carBAMazepine [Tegretol] 200 mg PO HS 01/23/19 [History] levoFLOXacin [Levaquin] 750 mg PO DAILY 11 Days #11 tablet 01/28/19 [Rx] Allergies/Adverse Reactions: Allergy/AdvReac Type Severity Reaction Status Date / Time No Known Allergies Allergy Verified 01/23/19 18:07 Date of admission: 01/24/19 11:41 Primary care physician: Cher Pack CNP Consults: 01/22/19 22:25 Consult to Podiatry [CONS] Stat Consulting Provider: [facility] Reason for Consult: left great toe ulceration with cellulitis Call Completed: Yes 01/23/19 01:06 Consult to Credit Cashier [CONS] Routine Reason for SW Consult: Chronic wound, Possible needs at discharge. 01/23/19 14:37 Consult to Infectious Diseases [CONS] Routine Consulting Provider: [facility] Reason for Consult: left great toe ulceration Call Completed: No - Constitutional Vitals: Temp Pulse Resp BP Pulse Ox 97.5 F L 70 15 128/86 96 01/28/19 11:08 01/28/19 11:08 01/28/19 11:08 01/28/19 11:08 01/28/19 11:08 - Patient Status Disposition: Home Health Service Condition: Good - Discharge Instructions Follow Up With: [facility] [Other] - 02/13/19 10:30 am (This appointment will be with Dr. Cabral.) Samuel Cabral, DPM [Partnered Physician] - 02/04/19 7:50 am (Do not touch the bandage until seen in the office. Thank you) - Attending Attestation I examined this patient and my medical decision-making was reviewed with the Resident Physician Dr Cummings. I agree with the documented findings, disposition and treatment plan as described except to the extent set forth below. Mr Birmingham is being observed for left great toe infection s/p amputation awake, denies fevers or chills,he is not requiring any pain meds, feeling well and eager for dc. discussed dc plan in detail and all questions answered gen- alert, awake,appears stated age, obese cv- reg rate and rhythm, normal s1,s2 lungs- ctabl, norm resp effort room air skin- left fott dressing c/d/i Diabetic L great toe ulcer- s/p L hallux amputation by Dr Cabral 01/23/19- cxs reviewed,appreciate ID input, levquin on dc, resume home asa + plavix on dc Uncontrolled DM- glucose improved with home dosing, he will dc on home dose with instruction to check glc levels at home, doctor with [facility] follows him weekly, further adjustments as needed outpt, diet education provided Stable Chronic CAD, no stent hx- will resume asa + plavix on dc time spent on dc 40 min dc to home w [facility] <James Cummings - Last Filed: 01/28/19 13:46> - NOTES TO OUTPATIENT PROVIDER Notes to Outpatient Provider: Patient was admitted for diabetic ulcer of the left hallux. Amputation performed by podiatry, without incident. He was medically stabilized and discharged to home with home health services. Infectious disease was consultation for antibiotic recommendations. He will be discharged on oral Levaquin 750 mg daily, to be completed February 08. He will follow-up in the wound care clinic for wound care management, dressing should not be removed until then. He will also follow-up with podiatry. Patient should have repeat BMP in 5-7 days due to being on oral Levaquin. Orders not resulted at time of discharge: Pending orders 01/23/19 08:25 Culture,Wound [RM] Stat 01/24/19 00:57 Culture,Anaerobic [RM] Routine Culture,Anaerobic [RM] Routine Surgical Pathology [PTH] Routine Date of Encounter: 01/28/19 Time of Encounter: 08:01 - Discharge Diagnosis (1) Status post amputation of left great toe Priority: Primary Status: Acute (2) Diastolic heart failure Priority: Secondary Status: Chronic Qualifiers: Heart failure chronicity: chronic Qualified Code(s): I50.32 - Chronic diastolic (congestive) heart failure (3) Uncontrolled diabetes mellitus Priority: Secondary Status: Chronic Qualifiers: Diabetes mellitus type: type 2 Glycemic state: with hyperglycemia Qualified Code(s): E11.65 - Type 2 diabetes mellitus with hyperglycemia (4) BEN (obstructive sleep apnea) Priority: Secondary Status: Chronic (5) Osteomyelitis of great toe of left foot Priority: Secondary Status: Acute (6) Morbid obesity with BMI of 40.0-44.9, adult Priority: Secondary Status: Chronic Hospital course: Mr. Birmingham is a 58 year old male with past medical history of arthritis, asthma, CHF, COPD, coronary artery disease, diabetes, hyperlipidemia, hypertension. He presented to the emergency department with several days of worsening left foot great toe ulceration. He has had the wound chronically for approximately 6 years. He has seen wound care and podiatry for the wound. Blood cultures were drawn, vancomycin and Zosyn were started, and CT scan was performed which demonstrated soft tissue gas. Patient was admitted to hospital service for podiatry consultation and medical management. Podiatry discussed options with the patient and decision was made for left hallux amputation. Operation was performed without incident, infectious disease consultation was requested for antibiotic management. Overall the patient received 5 days of IV vancomycin and Zosyn. Infectious disease recommended discontinuing this and switching to IV cefepime. IV cefepime was administered for 2 days and the patient was transitioned to oral Levaquin for discharge. Patient received one dose oral Levaquin 750 mg prior to discharge and was discharged with 11 further days by mouth Levaquin 750 mg daily. He was also discharged with home health nursing and aid, podiatry and wound care follow-up, and wound care instructions were given in discharge instructions and PCP follow-up instructions. During his hospitalization patient was also managed for uncontrolled diabetes. He is currently on 30 units basal insulin twice a day at home. We originally had him on 20 units basal insulin twice a day with add adjunctive medium dose sliding scale. However he continued to have hyperglycemia so we switched to 30 units twice a day basal insulin with adjunctive medium dose sliding scale which controlled his blood sugar appropriately. Patient also has a history of diastolic heart failure, no acute exacerbation occurred during hospitalization, we will discharge back on home meds. Discharge discussed with: patient - Time Spent with Patient Total time spent providing and/or coordinating discharge services: Date of admission: 01/24/19 11:41 Primary care physician: Cher Pack CNP Consults: 01/22/19 22:25 Consult to Podiatry [CONS] Stat Consulting Provider: [facility] Reason for Consult: left great toe ulceration with cellulitis Call Completed: Yes 01/23/19 01:06 Consult to Credit Cashier [CONS] Routine Reason for SW Consult: Chronic wound, Possible needs at discharge. 01/23/19 14:37 Consult to Infectious Diseases [CONS] Routine Consulting Provider: [facility] Reason for Consult: left great toe ulceration Call Completed: No Discharging clinician: James Cummings Anticipated date of discharge: 01/28/19 - Constitutional Vitals: Temp Pulse Resp BP Pulse Ox 98.0 F 70 14 140/88 95 01/28/19 07:05 01/28/19 07:05 01/28/19 07:05 01/28/19 07:05 01/28/19 07:05 General appearance: Present: cooperative, A&O X 3, pleasant, no acute distress, answers questions appropriately Exam: gen- alert, awake,appears stated age, obese cv- reg rate and rhythm, normal s1,s2, 2+ pitting edema in left leg lungs- ctabl, norm resp effort room air Abdomen soft and nontender, normal bowel sounds noted skin- left foot/leg dressing c/d/i neuro- AAOx3, LE sensation to light touch diminished but intact - Patient Status Functional capacity at discharge: uses cane/walker Overall status at discharge: patient is progressing back to baseline - Diet and Activity Activity: as per physical therapy Diet: diabetic diet - VTE Documentation of Mechanical Device: Intermittent pneumatic compression device
[2019-01-28] MEDS: Insulin LISPRO 300 UNITS/3 ML VIAL SQ SCH ×2 (08:24→12:06)
[2019-01-28] MEDS: Insulin NPH 100 UNIT/ML (x5UNIT) SQ SCH (08:25)
[2019-01-28] MEDS: Multivit/Ca/Min/Fe/FA 1 TAB TABLET PO SCH (08:25)
[2019-01-28] MEDS: Furosemide 40 MG TABLET PO SCH (08:25)
[2019-01-28] MEDS: Lisinopril 20 MG TABLET PO SCH (08:25)
[2019-01-28] MEDS: Gabapentin 300 MG CAPSULE PO SCH (08:25)
[2019-01-28] MEDS: Acetaminophen 325 MG TABLET PO PRN (08:30)
[2019-01-28 11:19] VITALS: BP 128/86
--- NOTE | 2019-01-28 11:43 | Physician Discharge Referral ---
<James Cummings - Last Filed: 01/28/19 13:32> Home Health/Hosp Referral Info Transfer to: Home Health Attending Provider: Adan Provider in Charge Post Discharge: PCP - Diagnosis (1) Status post amputation of left great toe Priority: Primary Status: Acute (2) Diastolic heart failure Priority: Secondary Status: Chronic (3) Uncontrolled diabetes mellitus Priority: Secondary Status: Chronic (4) BEN (obstructive sleep apnea) Priority: Secondary Status: Chronic (5) Osteomyelitis of great toe of left foot Priority: Secondary Status: Acute (6) Morbid obesity with BMI of 40.0-44.9, adult Priority: Secondary Status: Chronic - Respiratory Orders None Smoking Cessation: Smoking cessation has been advised. For more information, call the [employer] Quit Line at 2-152-YZWH-NOW. - Dressing/Wound Care Site: Left foot Type of Dressing/Treatments w/Frequency: Follow up in wound care center with Dr. Cabral, please make appointment prior to d/c Surgical shoe ordered, heel weight bearing only, limited ambulation Do not change dressing until seen in [facility] - Diet/Nutrition Diet/Nutrition Orders: No Concentrated Sweets - Activity Activity Orders: Up ad moncho - Services Needed Following services are medically necessary services: Nursing, Home Health Aide Other Treatments: Patient should have repeat BMP in 5-7 days due to oral Levaquin - Transfer Medications Prescriptions: levoFLOXacin [Levaquin] 750 mg PO DAILY 11 Days #11 tablet Home Medications: Aspirin 81 mg PO HS 11/02/15 [History] Clopidogrel [Plavix] 75 mg PO DAILY 11/02/15 [History] Furosemide [Lasix] 20 - 40 mg PO BID PRN 11/02/15 [History] Gabapentin [Neurontin] 300 mg PO BID 11/02/15 [History] Lisinopril [Zestril] 20 mg PO DAILY 11/02/15 [History] Ergocalciferol (VITAMIN D2) [Vitamin D2] 50,000 units PO TH 01/23/19 [History] Insulin NPH Human Isophane [Novolin N] 30 unit SQ BID 01/23/19 [History] Metoprolol [Lopressor] 50 mg PO BID 01/23/19 [History] Multivitamin [Daily Multiple Vitamin] 1 tab PO DAILY 01/23/19 [History] Simvastatin [Zocor] 40 mg PO HS 01/23/19 [History] Tramadol HCl [Ultram] 50 mg PO Q6H PRN 01/23/19 [History] Ubidecarenone/Vit E Acetate [Co Q-10 100 mg Softgel] 100 mg PO DAILY 01/23/19 [History] carBAMazepine [Tegretol] 200 mg PO HS 01/23/19 [History] levoFLOXacin [Levaquin] 750 mg PO DAILY 11 Days #11 tablet 01/28/19 [Rx] Allergies/Adverse Reactions: Allergy/AdvReac Type Severity Reaction Status Date / Time No Known Allergies Allergy Verified 01/23/19 18:07 Certification: Further, I certify that my clinical findings support that this patient is homebound (i.e. absences from home require considerable and taxing effort and ar e for medical reasons or scientologist services or infrequently or short duration when for other reasons) because: Homebound Reason: Post-surgery restriction and or conditions limit ability to leave home, Leaving home requires considerable and taxing effort due to condition Attestation: My signature below is to certify that this patient is under my care and that I, or nurse practitioner, or a physician's assistant manager pt working with me, has a [id number] encounter with this patient. <Meche Arellano - Last Filed: 01/28/19 14:44> - Diagnosis (1) Amputation toe Priority: Secondary Status: Acute (2) Diabetic ulcer of toe Priority: Primary Status: Resolved (3) Hyperglycemia due to type 2 diabetes mellitus Priority: Secondary Status: Chronic - Respiratory Orders Smoking Cessation: Smoking cessation has been advised. For more information, call the [place] [employer] Quit Line at 0-032-KUQG-NOW. Certification: Further, I certify that my clinical findings support that this patient is homebound (i.e. absences from home require considerable and taxing effort and are for medical reasons or scientologist services or infrequently or short duration when for other reasons) because: Attestation: My signature below is to certify that this patient is under my care and that I, or nurse practitioner, or a physician's assistant manager pt working with me, has a [id number] encounter with this patient.
[2019-01-28] MEDS ORDERED: levoFLOXacin 750 MG TABLET PO ONE (13:39)
--- NOTE | 2019-01-28 14:23 | Infectious Disease Progress No ---
ID Progress Note Date of Encounter: 01/28/19 Time of Encounter: 14:22 - Subjective Subjective: Patient seen and examined. Appears comfortable. Laying in bed and has his CPAP on. Patient denies any CM, no CP no cough, no diarrhea. no abdominal pain no urinary symptoms. Ready for discharge. VS Afebrile Labs reviewed Cultures: Reviewed - Objective CBC & Chem 7: 01/28/19 05:48 01/28/19 05:48 - Exam Vitals: Temp Pulse Resp BP Pulse Ox 97.5 F L 70 15 128/86 96 01/28/19 11:08 01/28/19 11:08 01/28/19 11:08 01/28/19 11:08 01/28/19 11:08 Exam: GENERAL: Comfortable. Laying in bed NAD HEENT: ALISHA, EOMI LUNGS: Good air sounds bilaterally, no wheezing or rhonchi CV: RRR, S1 S2 ABDOMEN: Soft, nontender, + bowel sounds - Assessment and Plan (1) Osteomyelitis of great toe of left foot Current Visit: Yes Status: Acute Status post amputation of the left hallux 01/24/2019 Intra-Op cultures with purulence and necrotic tissue Cultures: Morganella morganii R Unasyn, Augmentin, cefazolin, Bactrim, tobramycin Pseudomonas aeruginosa pansensitive Streptococcus anginosos Patient was started empirically on vancomycin and Zosyn Inflammatory markers noted Recommendations: d/w Dr. Cabral we feels that he took out all the infected part, will continue IV cefepime while inhouse. on D/C switch to levofloxacin 750 mg daily through february 08 Monitor kidney function closely We will continue to follow closely SNOMED Code(s): 229989232, 849257305, [id number] (2) Diabetes mellitus Current Visit: No Status: Acute Poorly controlled Glucose on admission 436 Most recent hemoglobin A1c 11.4 Qualifiers: Diabetes mellitus type: type 2 Diabetes mellitus longterm insulin use: with longterm use Diabetes mellitus complication status: with neurologic complications Diabetes mellitus complication detail: with polyneuropathy Qualified Code(s): E11.42 - Type 2 diabetes mellitus with diabetic polyneuropathy SNOMED Code(s): 44060039 (3) CAD (coronary artery disease) Current Visit: No Status: Chronic Qualifiers: Coronary Disease-Associated Artery/Lesion type: [place] artery [place] vs. transplanted heart: [place] heart Associated angina: without angina Qualified Code(s): I25.10 - Atherosclerotic heart disease of [place] coronary artery without angina pectoris SNOMED Code(s): 68478590 (4) BEN treated with BiPAP Current Visit: No Status: Chronic SNOMED Code(s): 19172122 (5) Morbid obesity with BMI of 40.0-44.9, adult Current Visit: No Status: Chronic SNOMED Code(s): 060260043, [id number] - VTE Documentation of Mechanical Device: Intermittent pneumatic compression device Consult Discharge Plan - Plan Referrals: [facility] [Other] - 02/13/19 10:30 am (This appointment will be with Dr. Cabral.) Samuel Cabral DPM [Partnered Physician] - 02/04/19 7:50 am (Do not touch the bandage until seen in the office. Thank you) Prescriptions: levoFLOXacin [Levaquin] 750 mg PO DAILY 11 Days #11 tablet
[2019-01-30] MEDS ORDERED: Ergocalciferol (VIT D2) 50,000 UNIT (1.25MG) CAP PO SCH (16:13)
== END 2019-01-28 14:40 | disposition home health service (06) | DRG 617 ==
LOC: 3NENU 19:41 → EMEROOARM 19:41 → SUATTDRO 22:34 → 3NENU 23:14 → 3ANU 01-26 17:55
PROVIDERS: ADMIT Pediatrics; ATTEND Internal Medicine

== ENCOUNTER 2019-03-08 18:11 | Inpatient (IN) ==
--- NOTE | 2019-03-08 19:37 | Emergency Department Note ---
Disposition Clinical Impression: Cellulitis Qualifiers: Site of cellulitis: extremity Site of cellulitis of extremity: toe Laterality: left Qualified Code(s): L03.032 - Cellulitis of left toe Disposition: Admitted As Inpatient Condition: Fair Time of Disposition: 19:38 General Adult HPI - General Chief complaint: ED Wound/Laceration Stated complaint: cellulitis LLE Time Seen by Provider: 03/08/19 18:30 Source: patient Limitations: no limitations Nursing Notes Reviewed: Yes Vital Signs Reviewed: Yes - History of Present Illness HPI Narrative: 58-year-old male presents emergency Department with concerns of infection the left lower show any. Patient states he was up this morning with increased erythema to the left foot which is status post amputation of the great toe. Patient has increased drainage from surgical site, he has increased erythema of the left foot which is tracking proximally. Patient also notes that he has increased swelling of the left lower extremity compared to right. Pain Scale: 6 - Related Data Home Medications Medication Instructions Recorded Confirmed Aspirin 81 mg PO HS 11/02/15 03/08/19 Clopidogrel [Plavix] 75 mg PO DAILY 11/02/15 03/08/19 Furosemide [Lasix] 20 - 40 mg PO BID PRN 11/02/15 03/08/19 Gabapentin [Neurontin] 300 mg PO BID 11/02/15 03/08/19 Lisinopril [Zestril] 20 mg PO DAILY 11/02/15 03/08/19 Ergocalciferol (VITAMIN D2) 50,000 units PO TH 01/23/19 03/08/19 [Vitamin D2] Insulin NPH Human Isophane 30 unit SQ TID 01/23/19 03/08/19 [Novolin N] Metoprolol [Lopressor] 50 mg PO BID 01/23/19 03/08/19 Multivitamin [Daily Multiple 1 tab PO DAILY 01/23/19 03/08/19 Vitamin] Simvastatin [Zocor] 40 mg PO HS 01/23/19 03/08/19 Tramadol HCl [Ultram] 50 mg PO Q6H PRN 01/23/19 03/08/19 Ubidecarenone/Vit E Acetate [Co 100 mg PO Q1W 01/23/19 03/08/19 Q-10 100 mg Softgel] carBAMazepine [Tegretol] 200 mg PO HS 01/23/19 03/08/19 Allergies Allergy/AdvReac Type Severity Reaction Status Date / Time No Known Allergies Allergy Verified 01/23/19 18:07 All systems ED: reviewed and negative except as stated. Review of Systems: As Per HPI Past Medical History - Past Medical History Attestation: Yes The following information was validated with the patient. Source: patient Medical history: Reports: arthritis, asthma, CHF, COPD, coronary artery disease, diabetes, hyperlipidemia, hypertension Surgical history: Reports: tonsillectomy Psychiatric history: Reports: anxiety, depression - Social History Smoking Status: Never smoker Smokeless Tobacco Status: No Alcohol use: Reports: none Drug use: Reports: none Physical Exam General: Alert and in no acute distress Skin: Warm, dry, drainage from the surgical site of the left first metatarsal phalangeal joint. Head: Normocephalic and atraumatic Neck: Supple, trachea midline and no tenderness Cardiovascular: RRR, no murmur, normal perfusion Respiratory: CTAB, no wheezing, cough, or respiratory distress Musculoskeletal: Normal strength patient has tenderness to palpation of the deep venous system of the left lower extremity. He has increased edema of the left lower extremity compared to the right. Pulses equal in bilateral lower extremity. GI: Soft, nontender, nondistended. Bowel sounds present Neuro: A&O to person, place, time and situation. No focal deficits noted on exam Psychiatric: cooperative and appropriate mood and affect. - General Limitations: no limitations General appearance: alert Course Vital Signs Temperature 99.4 F 03/08/19 18:13 Pulse Rate 108 03/08/19 18:13 Respiratory Rate 24 03/08/19 18:13 Blood Pressure 162/97 03/08/19 18:13 O2 Sat by Pulse Oximetry 93 03/08/19 18:13 Temperature 102.7 F H 03/09/19 13:07 Pulse Rate 118 03/09/19 10:24 Respiratory Rate 22 03/09/19 10:24 Blood Pressure 159/89 03/09/19 10:24 O2 Sat by Pulse Oximetry 95 03/09/19 10:24 Oxygen Delivery Oxygen Delivery Room Air Medical Decision Making - MDM Narrative Medical decision making narrative: I have concerns about possible infection and we will obtain laboratory evaluation as well as imaging studies of the left foot. Ultrasound of the left lower extremity was negative for DVT but it had a SVT. X-ray did not show evidence of osteomyelitis. Patient was started on antibiotics in the emergency department. He will be admitted to the hospitalist for further care and brendon luation. - Medical Records Medical records reviewed: Yes I reviewed the patient's medical records. - Lab Data Lab results reviewed: Yes I reviewed the patient's lab results. Result diagrams: 03/09/19 04:36 03/09/19 04:36 Lab Results 03/08/19 03/08/19 03/08/19 Range/Units 19:25 19:25 19:25 WBC 6.0 (4.3-11.1) K/mcL RBC 4.80 (4.19-5.50) M/mcL Hgb 14.8 (12.9-16.9) g/dL Hct 42.2 (37.5-50.1) % MCV 87.9 (83.0-100.0) fL MCH 30.8 (28.0-33.3) pg MCHC 35.1 (31.6-35.5) g/dL RDW 13.9 (11.5-14.5) % Plt Count 128 L (140-400) K/mcL MPV 11.2 (9.4-12.4) fL Immature Gran % 0.3 (0-4) % Seg Neutrophils % 75.6 % Lymphocytes % 10.5 % Monocytes % 10.9 % Eosinophils % 2.0 % Basophils % 0.7 % Neutrophils # 4.5 (1.6-8.9) K/mcL Lymphocytes # 0.6 (0.6-4.6) K/mcL Monocytes # 0.7 (0.0-1.3) K/mcL Eosinophils # 0.1 (0.0-0.6) K/mcL Basophils # 0.0 (0.0-0.2) K/mcL ESR 14 H (0-10) mm/hr Sodium 136 (136-145) mEq/L Potassium 3.9 (3.5-5.1) mEq/L Chloride 103 (98-107) mEq/L Carbon Dioxide 23 (23-29) mEq/L BUN 18 (6-20) mg/dL Creatinine 0.74 (0.70-1.30) mg/dL Est GFR ( Amer) > 60 (> 60) Est GFR (Non-Af Amer) > 60 (> 60) BUN/Creatinine Ratio 24 (6-26) Glucose 214 H (70-105) mg/dL Calculated Osmolality 290 (280-300) Lactic Acid (0.5-2.2) mmol/L Calcium 9.2 (8.6-10.3) mg/dL C-Reactive Protein 41 H (Less than 10) mg/L 03/08/19 03/08/19 Range/Units 19:25 21:04 WBC (4.3-11.1) K/mcL RBC (4.19-5.50) M/mcL Hgb (12.9-16.9) g/dL Hct (37.5-50.1) % MCV (83.0-100.0) fL MCH (28.0-33.3) pg MCHC (31.6-35.5) g/dL RDW (11.5-14.5) % Plt Count (140-400) K/mcL MPV (9.4-12.4) fL Immature Gran % (0-4) % Seg Neutrophils % % Lymphocytes % % Monocytes % % Eosinophils % % Basophils % % Neutrophils # (1.6-8.9) K/mcL Lymphocytes # (0.6-4.6) K/mcL Monocytes # (0.0-1.3) K/mcL Eosinophils # (0.0-0.6) K/mcL Basophils # (0.0-0.2) K/mcL ESR (0-10) mm/hr Sodium (136-145) mEq/L Potassium (3.5-5.1) mEq/L Chloride (98-107) mEq/L Carbon Dioxide (23-29) mEq/L BUN (6-20) mg/dL Creatinine (0.70-1.30) mg/dL Est GFR ( Amer) (> 60) Est GFR (Non-Af Amer) (> 60) BUN/Creatinine Ratio (6-26) Glucose (70-105) mg/dL Calculated Osmolality (280-300) Lactic Acid 0.7 0.7 (0.5-2.2) mmol/L Calcium (8.6-10.3) mg/dL C-Reactive Protein (Less than 10) mg/L - Radiology Data Radiology results reviewed: Yes I reviewed the patient's radiology results.
[2019-03-08 19:54] LABS: Basophils % 0.7 %; Eosinophils # 0.1 K/mcL (0.0-0.6); Hematocrit 42.2 % (37.5-50.1); Hemoglobin 14.8 g/dL (12.9-16.9); Immature Granulocytes % 0.3 % (0-4); Lymphocytes # 0.6 K/mcL (0.6-4.6); Lymphocytes % 10.5 %; Mean Corpuscular HGB Conc 35.1 g/dL (31.6-35.5); Mean Corpuscular Hemoglobin 30.8 pg (28.0-33.3); Mean Corpuscular Volume 87.9 fL (83.0-100.0); Mean Platelet Volume 11.2 fL (9.4-12.4); Monocytes # 0.7 K/mcL (0.0-1.3); Monocytes % 10.9 %; Neutrophils # 4.5 K/mcL (1.6-8.9); Platelet Count 128 K/mcL (140-400); Red Cell Distribution Width 13.9 % (11.5-14.5); Segmented Neutrophils % 75.6 %
[2019-03-08 20:14] LABS: BUN/Creatinine Ratio 24 (6-26); Blood Urea Nitrogen 18 mg/dL (6-20); C-Reactive Protein 41 mg/L (Less than 10); Calcium 9.2 mg/dL (8.6-10.3); Carbon Dioxide 23 mEq/L (23-29); Chloride 103 mEq/L (98-107); Glucose 214 mg/dL (70-105); Osmolality,Calculated 290 (280-300); Potassium 3.9 mEq/L (3.5-5.1); Sodium 136 mEq/L (136-145); eGFR For African Americans > 60 (> 60); eGFR For Non-African Americans > 60 (> 60)
[2019-03-08] MEDS ORDERED: Piperacillin/Tazobactam 3.375 GM in 0.9 % Sodium Chloride Mini Bag 100 ML IVPB ONE (20:21)
--- NOTE | 2019-03-08 21:01 | Internal Med History&Physical ---
Date of Encounter: 03/08/19 Time of Encounter: 21:40 Internal Medicine - H&P: HPI Chief complaint: Cellulitis Admitted From: Emergency Dept Plans for Post Hospital Care: Home History of present illness: Mr. Birmingham is a 58 year old male Patient presented to the emergency department with left lower extremity swelling and redness. He has a significant past medical history of uncontrolled diabetes, and has had his great toe on his left foot amputated recently. His is at bedside and has been primary rn homecare of his wound. They state that the toe site had been doing well, and not much discharge had been observed. Today however after the patient took a shower his leg looked more swollen and there was yellow discharge coming from the wound. He also developed redness of the foot, swelling and pain. Emergency department vital signs: Temperature 99.4, pulse 108, respiratory 24, blood pressure 162/97, O2 saturation 92% on room air CBC: Notable for a platelet count of 128 BMP: Notable for a glucose of 214 Lactic acid 0.7 C-reactive protein 41 ESR 14 Left foot x-ray demonstrated no acute osseous abnormality of the left foot, evidence of amputation of the great toe with no plain film evidence of osteomyelitis or soft tissue gas. In the emergency department patient was started on Zosyn and vancomycin. Blood cultures were drawn. He was admitted to the hospital for further management. Upon my assessment, patient is resting comfortably in the ER bed in no acute distress. He denies chest pain, abdominal pain, nausea, vomiting, diarrhea and constipation. He has had chills however. Tylenol has been controlling his pain Well. He has been seeing wound care every 2 weeks, and has another appointment coming up next week. He is a full code. Past Med Surg Social Fam HX - Past Medical History Medical history: arthritis, asthma, CHF, COPD, coronary artery disease, diabetes, hyperlipidemia, hypertension Psychiatric history: anxiety, depression - Past Surgical History Surgical History: tonsillectomy Additional surgical history: heart cath, abscess I&D, - Social History Smoking Status: Never smoker Smokeless Tobacco Status: No Alcohol use: none Drug use: none - Family History Mother Family Member Ethnicity: Non- Living Status: Internal Medicine - H&P: Meds Aspirin 81 mg PO HS 11/02/15 [History] Clopidogrel [Plavix] 75 mg PO DAILY 11/02/15 [History] Furosemide [Lasix] 20 - 40 mg PO BID PRN 11/02/15 [History] Gabapentin [Neurontin] 300 mg PO BID 11/02/15 [History] Lisinopril [Zestril] 20 mg PO DAILY 11/02/15 [History] Ergocalciferol (VITAMIN D2) [Vitamin D2] 50,000 units PO TH 01/23/19 [History] Insulin NPH Human Isophane [Novolin N] 30 unit SQ TID 01/23/19 [History] Metoprolol [Lopressor] 50 mg PO BID 01/23/19 [History] Multivitamin [Daily Multiple Vitamin] 1 tab PO DAILY 01/23/19 [History] Simvastatin [Zocor] 40 mg PO HS 01/23/19 [History] Tramadol HCl [Ultram] 50 mg PO Q6H PRN 01/23/19 [History] Ubidecarenone/Vit E Acetate [Co Q-10 100 mg Softgel] 100 mg PO Q1W 01/23/19 [H istory] carBAMazepine [Tegretol] 200 mg PO HS 01/23/19 [History] Allergy/AdvReac Type Severity Reaction Status Date / Time No Known Allergies Allergy Verified 01/23/19 18:07 All Systems PM: A 10-system review of systems was performed and is negative for pertinent findings except as documented above in the HPI. - Constitutional Vitals: Temp Pulse Resp BP Pulse Ox 99.4 F 108 24 162/97 93 03/08/19 19:13 03/08/19 19:13 03/08/19 19:13 03/08/19 19:13 03/08/19 19:13 General appearance: Present: cooperative, A&O X 3, pleasant, no acute distress, answers questions appropriately Exam: - - Head Head exam: Present: normal inspection - Eye Eye exam: Present: EOMI, normal appearance - Respiratory Respiratory exam: Present: CTAB. Absent: rales, respiratory distress, rhonchi, wheezes - Cardiovascular Cardiovascular exam: Present: RRR. Absent: diastolic murmur, systolic murmur - GI/Abdominal GI/Abdominal exam: Present: normal bowel sounds, soft. Absent: tenderness - Extremities Exam Extremities exam: Present: pedal edema, tenderness, warm, radial pulses palpable and symmetrical. Absent: calf tenderness Additional comments: Left great toe amputated, site demonstrates purulent drainage, yellow in color. Erythema of the foot extending up to the thigh. Tender to palpation of the foot and oneil. - Neurological Exam Neurological exam: Present: no focal deficits, strengths equal and symetr throughout. Absent: motor sensory deficit - Skin Skin exam: Present: dry, erythema, warm Additional comments: Erythematous left leg from foot to small area and inner thigh. Internal Med - H&P Results - Labs CBC & Chem 7: 03/08/19 19:25 03/08/19 19:25 Labs: Short CBC 03/08/19 Range/Units 19:25 WBC 6.0 (4.3-11.1) K/mcL Hgb 14.8 (12.9-16.9) g/dL Hct 42.2 (37.5-50.1) % Plt Count 128 L (140-400) K/mcL Neutrophils # 4.5 (1.6-8.9) K/mcL BMP 03/08/19 19:25 Sodium 136 Potassium 3.9 Chloride 103 Carbon Dioxide 23 BUN 18 Creatinine 0.74 Glucose 214 H Calcium 9.2 - Impressions ITS Impressions Foot X-Ray 03/08/19 20:21 IMPRESSION: No acute osseous abnormality of the left foot. Status post amputation of the great toe with no plain film evidence of osteomyelitis or soft tissue gas. D/ / Naren Garza MD / Naren Garza MD Interpreting Provider: Naren Garza MD - Assessment and Plan (1) Cellulitis Current Visit: Yes Status: Acute Assessment and plan: Patient's left great toe was amputated on 01/24/2019. He has been following with wound care, and according to him and his the wound had been healing well. Today however drainage was noted and he had increased swelling and pain. X-ray indicates no osteomyelitis or soft tissue gas. Blood cultures drawn, follow-up results Continue IV antibiotics vancomycin and Zosyn Podiatry consult, follow-up recommendations Nothing by mouth after midnight Pain management as needed Qualifiers: Site of cellulitis: extremity Site of cellulitis of extremity: toe Laterality: left Qualified Code(s): L03.032 - Cellulitis of left toe (2) History of amputation of hallux Current Visit: Yes Status: Acute Assessment and plan: Left great toe amputation on 01/24/2019. Amputation site appears infected with purulent drainage, and erythema extending to the thigh. Podiatry consult Management as above (3) Uncontrolled diabetes mellitus Current Visit: No Status: Chronic Assessment and plan: Patient is an insulin dependent diabetic. States that he ran out of insulin recently. Monitor sugars Q6H Diabetic diet then NPO after midnight until podiatry evaluation Low dose insulin sliding scale as needed Hold home meds. Qualifiers: Diabetes mellitus type: type 2 Glycemic state: with hyperglycemia Qualified Code(s): E11.65 - Type 2 diabetes mellitus with hyperglycemia (4) Thrombocytopenia Current Visit: Yes Status: Acute Assessment and plan: Patient's platelets are 128 today, down from previous 261. Repeat AM labs Continue to monitor (5) BEN (obstructive sleep apnea) Current Visit: No Status: Chronic Assessment and plan: Continue CPAP Respiratory therapy consult (6) DVT prophylaxis Current Visit: No Status: Acute Assessment and plan: SCDs - Time Spent With Patient Total time spent is greater than 50% in coordination of care (as documented) at patient's floor/unit and/or counseling patient:
[2019-03-08] MEDS ORDERED: Naloxone 0.4 MG/ML INJ IVP PRN (21:23)
[2019-03-08] MEDS ORDERED: *HR* Dextrose 50 % in Water (Syg) 50 ML SYRINGE IVP PRN (22:00)
[2019-03-08] MEDS ORDERED: D5% in Water 1,000 ML IVC PRN (22:00)
[2019-03-08] MEDS ORDERED: Dextrose Gel 15 GM/37.5 ML TUBE PO PRN ×2 (22:00)
[2019-03-08] MEDS ORDERED: Acetaminophen 325 MG TABLET PO PRN (22:05)
[2019-03-08] MEDS: Insulin LISPRO 300 UNITS/3 ML VIAL SQ SCH (23:08)
[2019-03-08] MEDS: Gabapentin 300 MG CAPSULE PO SCH (23:09)
[2019-03-09] MEDS: Insulin LISPRO 300 UNITS/3 ML VIAL SQ SCH ×4 (05:37→21:50)
[2019-03-09 05:50] LABS: Hemoglobin 14.1 g/dL (12.9-16.9); Mean Corpuscular HGB Conc 33.6 g/dL (31.6-35.5); Mean Corpuscular Hemoglobin 29.9 pg (28.0-33.3); Mean Platelet Volume 11.6 fL (9.4-12.4); Platelet Count 131 K/mcL (140-400); Red Blood Count 4.72 M/mcL (4.19-5.50); White Blood Count 7.6 K/mcL (4.3-11.1)
[2019-03-09 05:57] LABS: INR 1.2; Prothrombin Time 13.8 Seconds (9.4-12.1)
[2019-03-09 06:00] LABS: Activated Partial Thrombo Time 33.1 Seconds (26.0-36.0)
[2019-03-09 06:12] LABS: Alanine Aminotransferase 15 Units/L (7-52); Albumin 4.4 g/dL (3.5-5.7); Albumin/Globulin Ratio 1.7 (1.1-2.2); Alkaline Phosphatase 94 Units/L (34-104); Aspartate Amino Transferase 14 Units/L (13-39); BUN/Creatinine Ratio 18 (6-26); Bilirubin,Total 0.9 mg/dL (0.3-1.0); Blood Urea Nitrogen 17 mg/dL (6-20); Calcium 9.3 mg/dL (8.6-10.3); Carbon Dioxide 25 mEq/L (23-29); Chloride 104 mEq/L (98-107); Globulin 2.6 g/dL (2.4-3.5); Glucose 206 mg/dL (70-105); Osmolality,Calculated 292 (280-300); Potassium 3.9 mEq/L (3.5-5.1); Sodium 137 mEq/L (136-145); eGFR For African Americans > 60 (> 60); eGFR For Non-African Americans > 60 (> 60)
[2019-03-09] MEDS ORDERED: Acetaminophen IV 1,000 MG/100 ML INFUS..BTL IVPB ONE (06:47)
[2019-03-09] MEDS: Gabapentin 300 MG CAPSULE PO SCH ×2 (08:58→21:50)
[2019-03-09] MEDS: Piperacillin/Tazobactam 3.375 GM in 0.9 % Sodium Chloride Mini Bag 100 ML IVPB SCH ×3 (08:58→23:31)
--- NOTE | 2019-03-09 10:16 | Podiatry Consult Note ---
Date of Encounter: 03/09/19 Time of Encounter: 09:00 Assessment and Plan (1) Chronic ulcer of right foot with fat layer exposed Current visit: Yes Status: Acute c/w wound care. alginate placed on wound today. xray reviewed no soft tissue gas or osteomyelitis. (2) Cellulitis of right foot Current visit: Yes Status: Acute Would recommend that he continue IV antibiotics. Get ID consult tomorrow when they return. Condition does appear to be improving, if condition ceased to improve or worsens will consider MRI and could possibly could require an incision and drainage but currently with the improvement of the cellulitis and lack of clinical evidence of an abscess I would recommend managing this conservatively at this time. History of Present Illness HPI: Mr. Birmingham is a 58 year old diabetic male who reports yesterday his bandage Wet and he developed redness of the foot and felt like he had a fever and his who helps him take care of the wound told him that he should go to the ER so they did and he was admitted with cellulitis. Patient says his wound had been doing really well and healing up. He says in recent times his blood sugars have been 150 and below and he noticed that his wound healed faster when his blood sugars were under better control. He is currently receiving IV antibiotics. Does report he had a fever at home. Past Med Surg Social Fam HX - Past Medical History Medical history: arthritis, asthma, CHF, COPD, coronary artery disease, diabetes, hyperlipidemia, hypertension Psychiatric history: anxiety, depression - Past Surgical History Surgical History: tonsillectomy Additional surgical history: heart cath, abscess I&D, - Social History Smoking Status: Former smoker Smokeless Tobacco Status: No Alcohol use: none Drug use: none - Family History Mother Family Member Ethnicity: Non- Living Status: Medications and Allergies Aspirin 81 mg PO HS 11/02/15 [History] Clopidogrel [Plavix] 75 mg PO DAILY 11/02/15 [History] Furosemide [Lasix] 20 - 40 mg PO BID PRN 11/02/15 [History] Gabapentin [Neurontin] 300 mg PO BID 11/02/15 [History] Lisinopril [Zestril] 20 mg PO DAILY 11/02/15 [History] Ergocalciferol (VITAMIN D2) [Vitamin D2] 50,000 units PO TH 01/23/19 [History] Insulin NPH Human Isophane [Novolin N] 30 unit SQ TID 01/23/19 [History] Metoprolol [Lopressor] 50 mg PO BID 01/23/19 [History] Multivitamin [Daily Multiple Vitamin] 1 tab PO DAILY 01/23/19 [History] Simvastatin [Zocor] 40 mg PO HS 01/23/19 [History] Tramadol HCl [Ultram] 50 mg PO Q6H PRN 01/23/19 [History] Ubidecarenone/Vit E Acetate [Co Q-10 100 mg Softgel] 100 mg PO Q1W 01/23/19 [History] carBAMazepine [Tegretol] 200 mg PO HS 01/23/19 [History] Allergy/AdvReac Type Severity Reaction Status Date / Time No Known Allergies Allergy Verified 01/23/19 18:07 All Systems Reviewed: The remainder of the systems were reviewed and are negative - Constitutional Constitutional: fever(s), no frequent falls, no weakness - Cardiovascular Cardiovascular: no chest pain, no dyspnea - Respiratory Respiratory: no cough - Musculoskeletal Musculoskeletal: numbness Physical Exam - Constitutional Vitals: Temp Pulse Resp BP Pulse Ox 99.9 F H 93 18 130/73 97 03/09/19 08:57 03/09/19 08:57 03/09/19 08:57 03/09/19 08:57 03/09/19 08:57 Exam: Well-developed obese male in no acute distress Absent protective sensation. There is cellulitis on the dorsum of the foot and at the hallux amputation site on the left foot. There is moderate serous drainage. Fibro-granular base at the amputation site with wound measuring approx 1.5 cm x 1cmx 0.5cm. No fluctuance. Foot is warm to touch. There is mild edema. Results - Labs Result Diagrams: 03/09/19 04:36 03/09/19 04:36 Labs: Abnormal lab results Plt Count 131 K/mcL (140-400) L 03/09/19 04:36 ESR 14 mm/hr (0-10) H 03/08/19 19:25 PT 13.8 Seconds (9.4-12.1) H 03/09/19 04:36 Glucose 206 mg/dL (70-105) H 03/09/19 04:36 C-Reactive Protein 41 mg/L (Less than 10) H 03/08/19 19:25 H & H 03/08/19 03/09/19 Range/Units 19:25 04:36 Hgb 14.8 14.1 (12.9-16.9) g/dL Hct 42.2 42.0 (37.5-50.1) % All other labs normal. Consult Discharge Plan - Plan Referrals: NONE,PCP [Primary Care Provider] -
--- NOTE | 2019-03-09 11:28 | Internal Med Progress Note ---
Hospitalist Progress Note - Encounter Date of Encounter: 03/09/19 Time of Encounter: 11:27 - Subjective Interval History: Patient lying in bed shivering, says he feels chilled and that he probably has a fever. Accompanied by who corroborates this. They also say Dr Cabral from podiatry was in shortly before my visit and that he looked at amputation site which is felt to be cellulitis but without deep extension, and to continue abx prior to re-wrapping it fairly extensively. Pt denies N/V, SOB, CP. - Exam Vitals: Temp Pulse Resp BP Pulse Ox 100.3 F H 118 22 159/89 95 03/09/19 10:24 03/09/19 10:24 03/09/19 10:24 03/09/19 10:24 03/09/19 10:24 Exam: General: NAD, good eye contact, ill appearing and shivering, obese Thoracic: Normal breath sounds b/l, no wheezing or crackles Cardio: Normal S1 and S2, regular rhythm, tachycardic Abdomen: Soft, nontender, nondistended, obese Extremities: Warm, well perfused. DP pulses 2+ b/l. Does have mild b/l pedal edema. Skin: Intact. No rashes, bruises, or ulcers aside from LLE, see same day podiatry note for extensive detailed description Neuro: Awake, fully oriented. Speech fluent - Assessment and Plan (1) Cellulitis Current Visit: Yes Status: Acute Assessment and Plan: Patient's left great toe was amputated on 01/24/2019. He has been following with wound care, and according to him and his the wound had been healing well. Today however drainage was noted and he had increased swelling and pain. X-ray indicates no osteomyelitis or soft tissue gas. Is complicated by sepsis (SIRS 3/4, no leukocytosis, present on admission). - Continue empiric vancomycin and Zosyn - LR bolus x1 and reassess in PM - BCx pending, will recheck cultures today given persistent fevers to 102s - tylenol prn fever - Podiatry consulted, appreciate rec's - Pain management as needed (2) Thrombocytopenia Current Visit: Yes Status: Acute Assessment and Plan: likely 2/2 sepsis, monitor (3) Uncontrolled diabetes mellitus Current Visit: No Status: Chronic (4) BEN (obstructive sleep apnea) Current Visit: No Status: Chronic - Summary of Assessment and Plan Summary of Assessment and Plan: Morbid obesity: BMI 48 PPx: lovenox Tele: no Activity: up ad moncho FEN: ADA, no MIVF Lines: PIV Consults: Podiatry Code: Full Dispo: patient requires inpatient eval and management at this time for persistent sepsis 2/2 cellulitis, anticipate 2-3 days, will be homegoing Internal Medicine: Result - Labs CBC & Chem 7: 03/09/19 04:36 03/09/19 04:36 Labs: Short CBC 03/08/19 03/09/19 Range/Units 19:25 04:36 WBC 6.0 7.6 (4.3-11.1) K/mcL Hgb 14.8 14.1 (12.9-16.9) g/dL Hct 42.2 42.0 (37.5-50.1) % Plt Count 128 L 131 L (140-400) K/mcL Neutrophils # 4.5 (1.6-8.9) K/mcL BMP 03/08/19 03/09/19 19:25 04:36 Sodium 136 137 Potassium 3.9 3.9 Chloride 103 104 Carbon Dioxide 23 25 BUN 18 17 Creatinine 0.74 0.97 Glucose 214 H 206 H Calcium 9.2 9.3 Liver Function 03/09/19 Range/Units 04:36 Total Bilirubin 0.9 (0.3-1.0) mg/dL AST 14 (13-39) Units/L ALT 15 (7-52) Units/L Alkaline Phosphatase 94 (34-104) Units/L Albumin 4.4 (3.5-5.7) g/dL - ABG Interpretation ABG results: PT/INR, D-dimer PT 13.8 Seconds (9.4-12.1) H 03/09/19 04:36 - Impressions Impressions Foot X-Ray 03/08/19 20:21 IMPRESSION: No acute osseous abnormality of the left foot. Status post amputation of the great toe with no plain film evidence of osteomyelitis or soft tissue gas. D/ / Naren Garza MD / Naren Garza MD Interpreting Provider: Naren Garza MD - VTE Documentation of Mechanical Device: Intermittent pneumatic compression device Consult Discharge Plan - Plan Referrals: NONE,PCP [Primary Care Provider] - (1) Cellulitis Qualifiers: Site of cellulitis: extremity Site of cellulitis of extremity: toe Laterality: left Qualified Code(s): L03.032 - Cellulitis of left toe (3) Uncontrolled diabetes mellitus Qualifiers: Diabetes mellitus type: type 2 Glycemic state: with hyperglycemia Qualified Code(s): E11.65 - Type 2 diabetes mellitus with hyperglycemia
[2019-03-09] MEDS: Acetaminophen 325 MG TABLET PO PRN ×2 (11:43→23:31)
[2019-03-09] MEDS ORDERED: Ringers Solution, Lactated 500 ML IVC ONE (13:29)
[2019-03-10 05:46] LABS: Mean Corpuscular HGB Conc 34.2 g/dL (31.6-35.5)
[2019-03-10 05:48] LABS: Hematocrit 37.1 % (37.5-50.1); Hemoglobin 12.7 g/dL (12.9-16.9); Immature Platelets 4.8 % (1.1-6.1); Mean Corpuscular Volume 87.5 fL (83.0-100.0); Mean Platelet Volume 11.6 fL (9.4-12.4); Red Blood Count 4.24 M/mcL (4.19-5.50); Red Cell Distribution Width 14.3 % (11.5-14.5); White Blood Count 5.9 K/mcL (4.3-11.1)
[2019-03-10] MEDS ORDERED: *HR* Enoxaparin 40 MG/0.4 ML SYRINGE SQ SCH (06:00)
[2019-03-10 07:21] LABS: BUN/Creatinine Ratio 20 (6-26); Blood Urea Nitrogen 19 mg/dL (6-20); Calcium 8.4 mg/dL (8.6-10.3); Carbon Dioxide 22 mEq/L (23-29); Chloride 105 mEq/L (98-107); Glucose 225 mg/dL (70-105); Magnesium 2.1 mg/dL (1.6-2.6); Osmolality,Calculated 281 (280-300); Potassium 3.8 mEq/L (3.5-5.1); Sodium 131 mEq/L (136-145); eGFR For African Americans > 60 (> 60); eGFR For Non-African Americans > 60 (> 60)
--- NOTE | 2019-03-10 07:38 | Internal Med Progress Note ---
Hospitalist Progress Note - Encounter Date of Encounter: 03/10/19 Time of Encounter: 07:37 - Subjective Interval History: Continued to fever most of yesterday and into the evening. This AM again has 100.6 fever. Patient states he does feel better than yesterday, fewer chills and able to get some sleep last night. He would actually like to go home but un derstands that he's still septic. Denies pain in L foot. No CP or palpitations, no SOB or cough, no N/V/D. - Exam Vitals: Temp Pulse Resp BP Pulse Ox 98.7 F 101 18 161/89 97 03/10/19 06:43 03/10/19 06:43 03/10/19 06:43 03/10/19 06:43 03/10/19 06:43 Exam: General: NAD, good eye contact, relatively comfortable appearing today, obese Thoracic: Normal breath sounds b/l, no wheezing or crackles Cardio: Normal S1 and S2, regular rhythm, tachycardic Abdomen: Soft, nontender, nondistended, obese Extremities: Warm, well perfused. DP pulses 2+ b/l. Does have mild b/l pedal edema. Skin: Intact. No rashes, bruises, or ulcers aside from LLE, see same day podiatry note for extensive detailed description, does have erythema and swelling extending to dorsum of foot Neuro: Awake, fully oriented. Speech fluent - Assessment and Plan (1) Cellulitis Current Visit: Yes Status: Acute (2) Thrombocytopenia Current Visit: Yes Status: Acute (3) Uncontrolled diabetes mellitus Current Visit: No Status: Chronic (4) BEN (obstructive sleep apnea) Current Visit: No Status: Chronic - Summary of Assessment and Plan Summary of Assessment and Plan: Gaston Birmingham is a 58 M w hx morbid obesity, BEN, HTN, DM2 c/b neuropathy and PAD, who p/w LLE swelling and redness, found to be SIRS 3/4 (wbc wnl), concerning for cellulitis and sepsis. Cellulitis: pt's L hallux amputated 01/24/2019, has been following w wound care. XR indicates no osteomyelitis or soft tissue gas. - Continue empiric vancomycin and Zosyn - LR bolus x1 again today - BCx from 03/08 and 03/09 ngtd - Podiatry consulted, appreciate rec's including ID consult - if pt continues to fever today, will check MRI of L foot - tylenol prn fever - Pain meds prn Sepsis: persistent, see above, lactate wnl at admission Thrombocytopenia: 2/2 sepsis, monitor DM2: uncontrolled, w neuropathy, on basal + SSI, home tramadol HTN: resume home lisinopril 20, metoprolol 50 bid PAD: home ASA, plavix, zocor BEN: cpap qhs Morbid obesity: BMI 48 PPx: d/c lovenox 2/2 plt <100, will use SCDs Tele: no Activity: up ad moncho FEN: ADA, no MIVF Lines: PIV Consults: Podiatry, ID Code: Full Dispo: inpatient for persistent sepsis 2/2 cellulitis, anticipate 2-3 days, will be homegoing Internal Medicine: Result - Labs CBC & Chem 7: 03/10/19 04:45 03/10/19 04:45 Labs: Short CBC 03/10/19 Range/Units 04:45 WBC 5.9 (4.3-11.1) K/mcL Hgb 12.7 L (12.9-16.9) g/dL Hct 37.1 L (37.5-50.1) % Plt Count 94 L (140-400) K/mcL BMP 03/10/19 04:45 Sodium 131 L Potassium 3.8 Chloride 105 Carbon Dioxide 22 L BUN 19 Creatinine 0.96 Glucose 225 H Calcium 8.4 L - ABG Interpretation ABG results: PT/INR, D-dimer PT 13.8 Seconds (9.4-12.1) H 03/09/19 04:36 - VTE Documentation of Mechanical Device: Intermittent pneumatic compression device Consult Discharge Plan - Plan Referrals: NONE,PCP [Primary Care Provider] - (1) Cellulitis Qualifiers: Site of cellulitis: extremity Site of cellulitis of extremity: toe Lat erality: left Qualified Code(s): L03.032 - Cellulitis of left toe (3) Uncontrolled diabetes mellitus Qualifiers: Diabetes mellitus type: type 2 Glycemic state: with hyperglycemia Qualified Code(s): E11.65 - Type 2 diabetes mellitus with hyperglycemia
[2019-03-10] MEDS ORDERED: Ringers Solution, Lactated 1,000 ML IVC SCH (07:45)
[2019-03-10] MEDS: Insulin LISPRO 300 UNITS/3 ML VIAL SQ SCH ×4 (08:27→20:10)
[2019-03-10] MEDS: Gabapentin 300 MG CAPSULE PO SCH ×2 (08:28→20:10)
[2019-03-10] MEDS: Piperacillin/Tazobactam 3.375 GM in 0.9 % Sodium Chloride Mini Bag 100 ML IVPB SCH ×2 (08:28→16:57)
[2019-03-10] MEDS: Acetaminophen 325 MG TABLET PO PRN (09:34)
[2019-03-10] MEDS ORDERED: traMADol 50 MG TABLET PO PRN (10:39)
[2019-03-10] MEDS: Furosemide 20 MG TABLET PO SCH ×2 (12:24→20:10)
--- NOTE | 2019-03-10 13:04 | Podiatry Progress Note ---
Date of Encounter: 03/10/19 Time of Encounter: 11:45 - Assessment and Plan (1) Cellulitis of right foot Current Visit: Yes Status: Acute Assessment: Erythema and calor noted to right midfoot, area marked 1/4 DP/PT Edema 1/4 RLE Pierce stage II ulceration with 1.2 cm tunneling noted at 12 o'clock No active drainage noted Slough noted to wound bed WBC 5.9, max temp 103.1 ESR 14 Blood cultures pending Plan: Continue IV atb, primary managing At this time do not believe there to be any abscess, will continue to monitor, if erythema extends beyond demarcation line will consider MRI or CT (2) Chronic ulcer of right foot with fat layer exposed Current Visit: Yes Status: Chronic Assessment: Pierce stage II ulceration to right 1st MTPJ 80 % of wound bed granular, slough noted Maceration noted to periwound No active drainage noted, unable to express any drainage Tunneling noted 1.2 cm at 12 o'clock Plan: Dressing changed, see below Will continue to monitor, no concern for abscess at this time, if continues to worsen or does not improve will consider a MRI or CT Continue IV atb per primary team Cleansed with 0.9 NS Painted periwound with betadine, covered with calcium alginate, 4x4 dry gauze, kerlix, and medipore tape Subjective Principal diagnosis: Cellulitis Interval history: Patient awake in bed. Alert and oriented x 3. at bedside. Patient reports he has non-healing diabetic ulcer of left foot from previous left great toe amputation. Reports he has erythema to right foot that is going up the foot. Reports fevers and chills. Denies nausea, vomiting, or diarrhea. Denies any calf pain or chest pain. Reports shortness of breath, but nothing abnormal d/t COPD. No other questions or concerns at this time Objective - Vital Signs Vital Signs: Vital Signs Temp Pulse Resp BP Pulse Ox 03/10/19 10:52 99.4 F 100 18 131/81 97 03/10/19 09:43 100.6 F H 03/10/19 06:43 98.7 F 101 18 161/89 97 03/10/19 03:33 99.1 F 88 16 127/76 96 03/10/19 00:40 100.7 F H 03/09/19 23:23 103.1 F H 99 16 154/84 94 03/09/19 18:44 97.6 F 88 18 136/82 100 03/09/19 15:07 18 99 03/09/19 14:52 100 F H 87 20 143/74 98 03/09/19 13:07 102.7 F H Intake and Output 03/09/19 03/10/19 03/10/19 23:59 07:59 15:59 Intake Total 590 / 930 100 / 940 840 / 940 Output Total 900 / 900 0 / 700 700 / 700 Balance -310 / 30 100 / 240 140 / 240 Intake: IV Fluids 350 / 450 100 / 700 600 / 700 Zosyn 3.375 GM In 0.9 % Sodium 100 / 200 100 / 200 100 / 200 Chloride (Mini-Bag +) 100 ML @ 25 mls/hr IVPB Q8HR [facility] Rx#: [id number] Vancocin 1,500 MG In 0.9 % 250 / 250 Sodium Chloride 250 ML @ 166. 667 mls/hr IVPB Q12H [facility] Rx#: [id number] Vancocin 1,750 MG In 0.9 % 500 / 500 Sodium Chloride 500 ML @ 333.3 mls/hr IVPB Q12H [facility] Rx#: [id number] Oral 240 / 480 0 / 240 240 / 240 Output: Urine 900 / 900 0 / 700 700 / 700 Other: Meal Breakfast Percent of Meal Consumed 100% # Voids 1 Blood Glucose* 201 178 282 - Exam Exam: Constitiutional: Alert and oriented x 3. Well nourished. No acute distress noted Vascular: 2/4 DP/PT bilaterally, CFT <3 sec to all digits, warm to warm from tibia to toes bilaterally, left hallux amp, no calf pain with squeeze BLE Neurologic: Absent sensation to touch, normal plantar response, Dermatologic: Pierce II ulceration left 1st met head, tunneling noted 1.2 cm at 12 o'clock, erythema noted, extending to midfoot, area marked, no active drainage noted, unable to express any drainage, 80% granulation tissue noted, slough noted near wound edges Musculoskeletal: 5/5 muscle strength and normal tone bilaterally. - Lab Result Diagrams: 03/10/19 04:45 03/10/19 04:45 Labs: Abnormal lab results Hgb 12.7 g/dL (12.9-16.9) L 03/10/19 04:45 Hct 37.1 % (37.5-50.1) L 03/10/19 04:45 Plt Count 94 K/mcL (140-400) L 03/10/19 04:45 ESR 14 mm/hr (0-10) H 03/08/19 19:25 PT 13.8 Seconds (9.4-12.1) H 03/09/19 04:36 Sodium 131 mEq/L (136-145) L 03/10/19 04:45 Carbon Dioxide 22 mEq/L (23-29) L 03/10/19 04:45 Glucose 225 mg/dL (70-105) H 03/10/19 04:45 POC Glucose 283 mg/dL (70-99) H 03/10/19 10:52 Calcium 8.4 mg/dL (8.6-10.3) L 03/10/19 04:45 C-Reactive Protein 41 mg/L (Less than 10) H 03/08/19 19:25 Microbiology, Last 48 Hours 03/09/19 13:36 Blood Culture - Preliminary Peripheral Venipuncture Culture is incubating and being continuously monitored for growth. Final report to follow. 03/08/19 21:05 Blood Culture - Preliminary Peripheral Venipuncture Culture is incubating and being continuously monitored for growth. Final report to follow. 03/08/19 21:05 Blood Culture - Preliminary Peripheral Venipuncture Culture is incubating and being continuously monitored for growth. Final report to follow. - VTE Documentation of Mechanical Device: Intermittent pneumatic compression device Consult Discharge Plan - Plan Referrals: NONE,PCP [Primary Care Provider] -
--- NOTE | 2019-03-10 15:15 | Infectious Disease Consult ---
Infectious Disease-Consult - Encounter Date/Time Date of Encounter: 03/10/19 Time of Encounter: 15:11 - Data of Consult Patient: new to practice Reason for consult: "Diabetic left foot cellulitis one month after left hallux amputation" Consult date: 03/10/19 Requesting Physician: Juan Diego Seymour Primary Care Provider: PCP NONE - HPI HPI: Patient is a 58-year-old gentleman who presents to [place] on 03/08/2019 with left foot pain and swelling and erythema. We are consulted on 03/10/2019 for antibiotic recommendations. Patient is a 58-year-old gentleman with past medical history mentioned below including long-standing diabetes mellitus type 2 poorly controlled with the most recent hemoglobin A1c of 11.9. Hemoglobin has been up of 10 since November 2016. Patient also with long-standing left diabetic foot ulcer nonhealing with left hallux abscess and soft tissue gas requiring amputation of the left hallux 01/24/2019 at that time Intra-Op cultures grew Morganella morganii R: Unasyn and cefazolin, Bactrim, tobramycin; pseudomonas aeruginosa pansensitive and Streptococcus anginosos pansensitive. Patient was treated with cefepime while inpatient and was discharged on levofloxacin through 02/08/2019. Patient apparently started walking on his leg and had wound dehiscence and the sutures fell off family tells me. Patient's wound was dressed daily by was at bedside. Patient states on Sunday morning prior to admission patient started having more drainage more erythema and started having pain and had subjective fevers and chills. Patient came into the hospital for evaluation. Since admission, patient has been febrile with MAXIMUM TEMPERATURE of 102.8, tachycardic and tachypneic labs revealed a WBC of 6, neutrophils 76% with no bands. ESR 14, CRP 41, BUN 18, creatinine 0.74. Vision had no lactic acidosis. Initial foot x-ray revealed no acute osseous abnormality of the left foot. Status post amputation of the great toe with no plain film evidence of osteomyelitis or soft tissue gas. Blood cultures were obtained on 03/08/2019 and 03/09/2019 all of which are no growth to date. Patient was started empirically on vancomycin and Zosyn were asked to evaluate the patient's make further recommendations. Currently patient laying in bed appears comfortable nontoxic. at bedside. Patient denies any headache no blurred vision chest pain or shortness of breath no cough no sputum production no nausea no vomiting no diarrhea no urinary symptoms. Patient denies any rash. - ROS Review of Systems: 10 point review of systems done, negative other for what is mentioned in the history of present illness. - Results CBC & Chem 7: 03/10/19 04:45 03/10/19 04:45 - Exam Vitals: Temp Pulse Resp BP Pulse Ox 99.4 F 100 18 131/81 97 03/10/19 10:52 03/10/19 10:52 03/10/19 10:52 03/10/19 10:52 03/10/19 10:52 Exam: GENERAL: Laying in bed, appears comfortable. Morbidly obese. HEAD: Normocephalic atraumatic EYES: PERRLA, EOMI, no conjunctival hemorrhage, sclera anicteric ENT: Mucous membranes moist, no oral thrush NECK: Supple. No meningeal signs. No masses LUNGS: Chest expanding symmetrically. Lungs sounds audible both lung crews. No wheezing, no rhonchi CV: RRR, S1S2, ABDOMEN: Soft, nontender, nondistended. Bowel sounds audible BACK: No CVA tenderness. Normal inspection. No tenderness over the spine EXTREMITY: Left lower with some erythema. Ears pinna stasis like in the left lower extremity. The erythema is markedly receded from the marked area. Stump with the ulceration and tunneling noted no active drainage. SKIN: Normal color. No rash. NEURO: Awake alert oriented 3. No obvious focal deficit PSYCH: Calm and appropriate. No agitation. Aspirin 81 mg PO HS 11/02/15 [History] Clopidogrel [Plavix] 75 mg PO DAILY 11/02/15 [History] Furosemide [Lasix] 20 - 40 mg PO BID PRN 11/02/15 [History] Gabapentin [Neurontin] 300 mg PO BID 11/02/15 [History] Lisinopril [Zestril] 20 mg PO DAILY 11/02/15 [History] Ergocalciferol (VITAMIN D2) [Vitamin D2] 50,000 units PO TH 01/23/19 [History] Insulin NPH Human Isophane [Novolin N] 30 unit SQ BID 01/23/19 [History] Metoprolol [Lopressor] 50 mg PO BID 01/23/19 [History] Simvastatin [Zocor] 40 mg PO HS 01/23/19 [History] Tramadol HCl [Ultram] 50 mg PO Q6H PRN 01/23/19 [History] Ubidecarenone/Vit E Acetate [Co Q-10 100 mg Softgel] 100 mg PO Q1W 01/23/19 [History] carBAMazepine [Tegretol] 200 mg PO HS 01/23/19 [History] Liraglutide [Victoza 3-Roel] 1.8 mg SQ DAILY 03/09/19 [History] Allergy/AdvReac Type Severity Reaction Status Date / Time No Known Allergies Allergy Verified 03/09/19 14:09 - Assessment and Plan (1) Sepsis Current Visit: Yes Status: Acute Patient had 3 SIRS criteria on admission Secondary to cellulitis left lower extremity Improving Qualifiers: Sepsis type: sepsis due to unspecified organism Sepsis acute organ dysfunction status: unspecified Qualified Code(s): A41.9 - Sepsis, unspecified organism SNOMED Code(s): 63754143 (2) Diabetic foot infection Current Visit: No Status: Acute Initially left foot abscess with gas formation status post amputation of the left hallux 01/24/2019 Intra-Op cultures positive for Morganella morganii, pseudomonas aeruginosa and Streptococcus anginosos Treated with cefepime followed by levofloxacin through 02/08/2019 Wound dehiscence due to mechanical trauma from walking and stepping on his foot Recurrence of erythema edema and pain starting 03/08/2019 X-ray of the foot with no obvious osteomyelitis or gas in the tissue Started empirically on vancomycin/Zosyn No Intra-Op cultures obtained SNOMED Code(s): 482685601 (3) Morbid obesity with BMI of 45.0-49.9, adult Current Visit: Yes Status: Acute SNOMED Code(s): 659468394, 63551093899362 (4) CAD (coronary artery disease) Current Visit: No Status: Chronic Qualifiers: Coronary Disease-Associated Artery/Lesion type: kaw artery [place] vs. transplanted heart: kaw heart Associated angina: without angina Qualified Code(s): I25.10 - Atherosclerotic heart disease of kaw coronary artery without angina pectoris SNOMED Code(s): 12946571 (5) HTN (hypertension) Current Visit: No Status: Chronic Qualifiers: Hypertension type: essential hypertension Qualified Code(s): I10 - Essential (primary) hypertension SNOMED Code(s): 96969484 (6) CHF (congestive heart failure) Current Visit: No Status: Acute Qualifiers: Heart failure type: unspecified Heart failure chronicity: chronic Qualified Code(s): I50.9 - Heart failure, unspecified SNOMED Code(s): 81084022 (7) Uncontrolled diabetes mellitus Current Visit: No Status: Chronic Qualifiers: Diabetes mellitus type: type 2 Glycemic state: with hyperglycemia Qualified Code(s): E11.65 - Type 2 diabetes mellitus with hyperglycemia SNOMED Code(s): 01691577, 132601249 (8) BEN (obstructive sleep apnea) Current Visit: No Status: Chronic SNOMED Code(s): 85314493 (9) History of amputation of hallux Current Visit: Yes Status: Acute SNOMED Code(s): 431980979 - Recommendations Recommendations: Continue current antibiotics with vancomycin and Zosyn Goal vancomycin trough around 10 Duration of treatment depends on clinical picture Will discuss with podiatry Monitor labs and for drug toxicity Past Med Surg Social Fam HX - Past Medical History Medical history: arthritis, asthma, CHF, COPD, coronary artery disease, diabetes, hyperlipidemia, hypertension Psychiatric history: anxiety, depression - Past Surgical History Surgical History: tonsillectomy Additional surgical history: heart cath, abscess I&D, - Social History Smoking Status: Former smoker Smokeless Tobacco Status: No Alcohol use: none Drug use: none - Family History Mother Family Member Ethnicity: Non- Living Status: - VTE Documentation of Mechanical Device: Intermittent pneumatic compression device Consult Discharge Plan - Plan Referrals: NONE,PCP [Primary Care Provider] -
[2019-03-10] MEDS: Aspirin 81 MG TAB.CHEW PO SCH (20:10)
[2019-03-10] MEDS: carBAMazepine 200 MG TABLET PO SCH (20:10)
[2019-03-10] MEDS ORDERED: Insulin DETEMIR 100 UNIT/ML X5UNITS SQ SCH (21:00)
[2019-03-11] MEDS: Piperacillin/Tazobactam 3.375 GM in 0.9 % Sodium Chloride Mini Bag 100 ML IVPB SCH ×3 (00:09→16:38)
[2019-03-11 03:47] LABS: Hematocrit 34.4 % (37.5-50.1); Hemoglobin 11.7 g/dL (12.9-16.9); Immature Platelets 5.8 % (1.1-6.1); Mean Corpuscular Volume 88.2 fL (83.0-100.0); Mean Platelet Volume 11.4 fL (9.4-12.4); Red Blood Count 3.9 M/mcL (4.19-5.50); Red Cell Distribution Width 14.3 % (11.5-14.5); White Blood Count 6.3 K/mcL (4.3-11.1)
[2019-03-11 03:50] LABS: BUN/Creatinine Ratio 19 (6-26); Blood Urea Nitrogen 20 mg/dL (6-20); Calcium 8.5 mg/dL (8.6-10.3); Carbon Dioxide 28 mEq/L (23-29); Chloride 102 mEq/L (98-107); Glucose 228 mg/dL (70-105); Osmolality,Calculated 288 (280-300); Potassium 4.1 mEq/L (3.5-5.1); Sodium 134 mEq/L (136-145); eGFR For African Americans > 60 (> 60); eGFR For Non-African Americans > 60 (> 60)
--- NOTE | 2019-03-11 07:26 | Internal Med Progress Note ---
Hospitalist Progress Note - Encounter Date of Encounter: 03/11/19 Time of Encounter: 07:25 - Subjective Interval History: Patient today says he finally feels better, no fevers in last 24 hours, in general just feels better/not sick today. He does mention that his left foot is slightly more painful than yesterday, but while looking at it today says it lo oks no worse and possible slightly better than yesterday. Denies SOB or cough, CP or palpitations, N/V/D. - Exam Vitals: Temp Pulse Resp BP Pulse Ox 98.8 F 85 15 166/87 100 03/11/19 06:34 03/11/19 06:34 03/11/19 06:34 03/11/19 06:34 03/11/19 06:34 Exam: General: NAD, good eye contact, comfortable appearing today, obese Thoracic: Normal breath sounds b/l, no wheezing or crackles Cardio: Normal S1 and S2, regular rhythm and rate Abdomen: Soft, nontender, obese Extremities: Warm, well perfused. DP pulses 2+ b/l. Does have mild b/l pedal edema. Skin: Intact. No rashes, bruises, or ulcers aside from LLE, does have erythema and swelling extending to dorsum of foot in previously circumscribed area, abs ent left hallux Neuro: Awake, fully oriented. Speech fluent - Assessment and Plan (1) Cellulitis Current Visit: Yes Status: Acute (2) Thrombocytopenia Current Visit: Yes Status: Acute (3) Uncontrolled diabetes mellitus Current Visit: No Status: Chronic (4) BEN (obstructive sleep apnea) Current Visit: No Status: Chronic - Summary of Assessment and Plan Summary of Assessment and Plan: Gaston Birmingham is a 58 M w hx morbid obesity, BEN, HTN, DM2 c/b neuropathy and PAD, who p/w LLE swelling and redness, found to be SIRS 3/4 (wbc wnl), concerning for cellulitis and sepsis. Cellulitis: pt's L hallux amputated 01/24/2019, has been following w wound care. XR indicates no osteomyelitis or soft tissue gas. Clinically improved today. - Continue empiric vancomycin and Zosyn - BCx from 03/08 and 03/09 ngtd - Podiatry following - ID following - defer whether to re-image to qm consultant teams, as clinically patient is improved/defervesced today without extension/worsening of erythema Sepsis: resolved Thrombocytopenia: 2/2 sepsis, monitor DM2: uncontrolled, w neuropathy, on basal + SSI, home tramadol HTN: resume home lisinopril 20, metoprolol 50 bid PAD: home ASA, plavix, zocor BEN: cpap qhs Morbid obesity: BMI 48 PPx: no heparin 2/2 plt ~100, will use SCDs Tele: no Activity: up ad moncho FEN: ADA, no MIVF Lines: PIV Consults: Podiatry, ID Code: Full Dispo: inpatient for persistent sepsis 2/2 cellulitis, anticipate 1-2 days, will be homegoing Internal Medicine: Result - Labs CBC & Chem 7: 03/11/19 02:52 03/11/19 02:52 Labs: Short CBC 03/11/19 Range/Units 02:52 WBC 6.3 (4.3-11.1) K/mcL Hgb 11.7 L (12.9-16.9) g/dL Hct 34.4 L (37.5-50.1) % Plt Count 104 L (140-400) K/mcL BMP 03/11/19 02:52 Sodium 134 L Potassium 4.1 Chloride 102 Carbon Dioxide 28 BUN 20 Creatinine 1.08 Glucose 228 H Calcium 8.5 L - ABG Interpretation ABG results: PT/INR, D-dimer PT 13.8 Seconds (9.4-12.1) H 03/09/19 04:36 - VTE Documentation of Mechanical Device: Intermittent pneumatic compression device Consult Discharge Plan - Plan Referrals: NONE,PCP [Primary Care Provider] - (1) Cellulitis Qualifiers: Site of cellulitis: extremity Site of cellulitis of extremity: toe Laterality: left Qualified Code(s): L03.032 - Cellulitis of left toe (3) Uncontrolled diabetes mellitus Qualifiers: Diabetes mellitus type: type 2 Glycemic state: with hyperglycemia Qualified Code(s): E11.65 - Type 2 diabetes mellitus with hyperglycemia
[2019-03-11] MEDS: Lisinopril 20 MG TABLET PO SCH (08:28)
[2019-03-11] MEDS: Insulin LISPRO 300 UNITS/3 ML VIAL SQ SCH ×4 (08:28→22:17)
[2019-03-11] MEDS: Gabapentin 300 MG CAPSULE PO SCH ×2 (08:29→21:48)
[2019-03-11] MEDS: Furosemide 20 MG TABLET PO SCH ×2 (08:29→16:39)
--- NOTE | 2019-03-11 11:30 | Podiatry Progress Note ---
Date of Encounter: 03/11/19 Time of Encounter: 11:28 - Assessment and Plan (1) Cellulitis of right foot Current Visit: Yes Status: Acute Assessment: Erythema and calor noted to right midfoot, area marked, does not extend beyond demarcation line 1/4 DP/PT Edema 2/4 RLE No active drainage noted Minimal slough noted to wound bed, hyperkeratosis noted to periwound WBC 5.9, afebrile overnight ESR 14 Blood cultures pending Plan: Continue IV atb, ID consulted, appreciate recommendations At this time do not believe there to be any abscess, will continue to monitor, if erythema extends beyond demarcation line will consider MRI or CT Imagining: Impressions: Venous duplex Left lower extremity: normal deep exam. Lower extremity abnormal superficial exam: left great saphenous BK demonstrates acute thrombosis. Right lower extremity: normal contralateral exam. (2) Chronic ulcer of right foot with fat layer exposed Current Visit: Yes Status: Chronic Assessment: Pierce stage II ulceration to right 1st MTPJ 90 % of wound bed granular, slough noted Hyperkeratosis noted to periwound No active drainage noted, unable to express any drainage Tunneling noted 1.2 cm at 12 o'clock Plan: Dressing changed, see below Will continue to monitor, no concern for abscess at this time, if continues to worsen or does not improve will consider a MRI or CT Continue IV atb per primary team Cleansed with hibiclense, 0.9 NS Covered with calcium alginate, 4x4 dry gauze, kerlix, and medipore tape Subjective Principal diagnosis: Cellulitis Interval history: Patient awake in bed. Alert and oriented x 3. at bedside. Reports improvement in general malaise. States he feels much better today. Denies fevers, chills, nausea, vomiting, or diarrhea overnight. Denies any chest pain. Reports calf pain but reports improvement from Sunday. Reports shortness of breath, but nothing abnormal d/t COPD. No other questions or concerns at this time Objective - Vital Signs Vital Signs: Vital Signs Temp Pulse Resp BP Pulse Ox 03/11/19 10:25 98.5 F 64 15 117/66 98 03/11/19 06:34 98.8 F 85 15 166/87 100 03/11/19 03:30 99.1 F 88 16 166/84 98 03/10/19 23:04 14 100 10/07/19 19:45 98.4 F 87 18 149/81 100 03/10/19 15:46 98.4 F 94 20 159/93 98 Intake and Output 03/10/19 03/11/19 03/11/19 23:59 07:59 15:59 Intake Total 1600 / 2780 100 / 460 360 / 460 Output Total 1550 / 2450 900 / 2450 Balance 1600 / 1430 -1450 / -1989 -540 / -1989 Intake: IV Fluids 1600 / 2300 100 / 100 Lactated Ringers 1,000 ML @ 250 1000 / 1000 mls/hr IVC .Q4H [facility] Rx#: [id number] Zosyn 3.375 GM In 0.9 % Sodium 100 / 300 100 / 100 Chloride (Mini-Bag +) 100 ML @ 25 mls/hr IVPB Q8HR [facility] Rx#: [id number] Vancocin 1,750 MG In 0.9 % 500 / 1000 Sodium Chloride 500 ML @ 333.3 mls/hr IVPB Q12H [facility] Rx#: [id number] Oral 360 / 360 Output: Urine 1550 / 2450 900 / 2450 Other: Meal Breakfast Percent of Meal Consumed 100% Blood Glucose* 249 251 - Exam Exam: Constitiutional: Alert and oriented x 3. Well nourished. No acute distress noted Vascular: 2/4 DP/PT bilaterally, CFT <3 sec to all digits, warm to warm from tibia to toes bilaterally, left hallux amp, no calf pain with squeeze BLE Neurologic: Absent sensation to touch, normal plantar response, Dermatologic: Pierce II ulceration left 1st met head, tunneling noted 1.2 cm at 12 o'clock, erythema noted, extending to midfoot, area marked, no active drainage noted, unable to express any drainage, 90% granulation tissue noted, Hyperkeratosis noted to periwound Musculoskeletal: 5/5 muscle strength and normal tone bilaterally. - Lab Result Diagrams: 03/11/19 02:52 03/11/19 02:52 Labs: Abnormal lab results RBC 3.90 M/mcL (4.19-5.50) L 03/11/19 02:52 Hgb 11.7 g/dL (12.9-16.9) L 03/11/19 02:52 Hct 34.4 % (37.5-50.1) L 03/11/19 02:52 Plt Count 104 K/mcL (140-400) L 03/11/19 02:52 ESR 14 mm/hr (0-10) H 03/08/19 19:25 PT 13.8 Seconds (9.4-12.1) H 03/09/19 04:36 Sodium 134 mEq/L (136-145) L 03/11/19 02:52 Carbon Dioxide 22 mEq/L (23-29) L 03/10/19 04:45 Glucose 228 mg/dL (70-105) H 03/11/19 02:52 POC Glucose 249 mg/dL (70-99) H 03/10/19 19:48 Calcium 8.5 mg/dL (8.6-10.3) L 03/11/19 02:52 C-Reactive Protein 41 mg/L (Less than 10) H 03/08/19 19:25 Microbiology, Last 48 Hours 03/09/19 13:36 Blood Culture - Preliminary Peripheral Venipuncture Culture is incubating and being continuously monitored for growth. Final report to follow. - VTE Documentation of Mechanical Device: Intermittent pneumatic compression device Consult Discharge Plan - Plan Referrals: NONE,PCP [Primary Care Provider] -
[2019-03-11] MEDS ORDERED: traMADol 50 MG TABLET PO PRN (14:31)
--- NOTE | 2019-03-11 17:37 | Infectious Disease Progress No ---
ID Progress Note Date of Encounter: 03/11/19 Time of Encounter: 17:34 - Subjective Subjective: Patient seen and examined. Clinically seems to be doing better. Had the CPAP on. at bedside. No chest pain or shortness of breath no nausea no vomiting. He is constipated though has not had a bowel movement today. Patient denies any urinary symptoms. Foot swelling and pain and erythema has improved. Vital signs noted afebrile for over 24 hours Labs reviewed - Objective CBC & Chem 7: 03/11/19 02:52 03/11/19 02:52 - Exam Vitals: Temp Pulse Resp BP Pulse Ox 97.9 F 70 16 123/70 99 03/11/19 15:10 03/11/19 15:10 03/11/19 15:10 03/11/19 15:10 03/11/19 15:10 Exam: GENERAL: Comfortable. Laying in bed NAD HEENT: ALISHA, EOMI LUNGS: Good air sounds bilaterally, no wheezing or rhonchi CV: RRR, S1 S2 ABDOMEN: Soft, nontender, + bowel sounds EXT: Left lower extremity with erythema that seems to be receding edema that seems to be improving and now more warm to touch. Stump ulceration from the recent amputation seems try no active drainage. NEURO: A&OX3; no focal deficit - Assessment and Plan (1) Sepsis Current Visit: Yes Status: Acute Patient had 3 SIRS criteria on admission Secondary to cellulitis left lower extremity Improving Qualifiers: Sepsis type: sepsis due to unspecified organism Sepsis acute organ dysfunction status: unspecified Qualified Code(s): A41.9 - Sepsis, unspecified organism SNOMED Code(s): 67184932 (2) Diabetic foot infection Current Visit: No Status: Acute Initially left foot abscess with gas formation status post amputation of the left hallux 01/24/2019 Intra-Op cultures positive for Morganella morganii, pseudomonas aeruginosa and Streptococcus anginosos Treated with cefepime followed by levofloxacin through 02/08/2019 Wound dehiscence due to mechanical trauma from walking and stepping on his foot Recurrence of erythema edema and pain starting 03/08/2019 X-ray of the foot with no obvious osteomyelitis or gas in the tissue Started empirically on vancomycin/Zosyn No Intra-Op cultures obtained SNOMED Code(s): 461772607 (3) Morbid obesity with BMI of 45.0-49.9, adult Current Visit: Yes Status: Acute SNOMED Code(s): 925418265, 21179087053580 (4) CAD (coronary artery disease) Current Visit: No Status: Chronic Qualifiers: Coronary Disease-Associated Artery/Lesion type: [place] artery [place] vs. transplanted heart: [place] heart Associated angina: without angina Qualified Code(s): I25.10 - Atherosclerotic heart disease of [place] coronary artery without angina pectoris SNOMED Code(s): 13185208 (5) HTN (hypertension) Current Visit: No Status: Chronic Qualifiers: Hypertension type: essential hypertension Qualified Code(s): I10 - Essential (primary) hypertension SNOMED Code(s): 69427198 (6) CHF (congestive heart failure) Current Visit: No Status: Acute Qualifiers: Heart failure type: unspecified Heart failure chronicity: chronic Qualified Code(s): I50.9 - Heart failure, unspecified SNOMED Code(s): 40553234 (7) Uncontrolled diabetes mellitus Current Visit: No Status: Chronic Qualifiers: Diabetes mellitus type: type 2 Glycemic state: with hyperglycemia Qualified Code(s): E11.65 - Type 2 diabetes mellitus with hyperglycemia SNOMED Code(s): 13915913, 476359968 (8) BEN (obstructive sleep apnea) Current Visit: No Status: Chronic SNOMED Code(s): 32084399 (9) History of amputation of hallux Current Visit: Yes Status: Acute SNOMED Code(s): 720676069 - Recommendations Recommendations: For now we will continue broad-spectrum antibiotics including vancomycin and Zosyn Goal vancomycin trough 1015 Patient is being ready to be discharged switch him to oral doxycycline plus levofloxacin to finish 14 day course Rations blood sugar has been very poorly controlled and that is can impede his healing. I explained at length to the patient and the that if the stump does not heal and there is an open space he is prone to getting reinfected over and over again. They voiced understanding and they said to work on his blood sugar. - VTE Documentation of Mechanical Device: Intermittent pneumatic compression device Consult Discharge Plan - Plan Referrals: NONE,PCP [Primary Care Provider] -
[2019-03-11] MEDS ORDERED: Insulin DETEMIR 100 UNIT/ML X5UNITS SQ SCH (21:00)
[2019-03-11] MEDS: carBAMazepine 200 MG TABLET PO SCH (21:48)
[2019-03-11] MEDS: Aspirin 81 MG TAB.CHEW PO SCH (21:48)
[2019-03-12] MEDS: Piperacillin/Tazobactam 3.375 GM in 0.9 % Sodium Chloride Mini Bag 100 ML IVPB SCH (00:30)
[2019-03-12 04:20] LABS: Hematocrit 32.3 % (37.5-50.1); Hemoglobin 11.2 g/dL (12.9-16.9); Mean Corpuscular HGB Conc 34.7 g/dL (31.6-35.5); Mean Corpuscular Hemoglobin 30.4 pg (28.0-33.3); Mean Corpuscular Volume 87.5 fL (83.0-100.0); Mean Platelet Volume 11.4 fL (9.4-12.4); Platelet Count 116 K/mcL (140-400); Red Blood Count 3.69 M/mcL (4.19-5.50); Red Cell Distribution Width 13.8 % (11.5-14.5); White Blood Count 4.7 K/mcL (4.3-11.1)
[2019-03-12 04:37] LABS: BUN/Creatinine Ratio 24 (6-26); Blood Urea Nitrogen 21 mg/dL (6-20); Calcium 8.3 mg/dL (8.6-10.3); Carbon Dioxide 24 mEq/L (23-29); Chloride 104 mEq/L (98-107); Glucose 234 mg/dL (70-105); Osmolality,Calculated 293 (280-300); Potassium 3.9 mEq/L (3.5-5.1); Sodium 136 mEq/L (136-145); eGFR For African Americans > 60 (> 60); eGFR For Non-African Americans > 60 (> 60)
--- NOTE | 2019-03-12 08:37 | Discharge Summary ---
Orders not resulted at time of discharge: Pending orders 03/08/19 21:05 Culture,Blood [BC] Stat 03/09/19 10:24 Culture,Anaerobic [] Routine Culture,Wound,with Gram Stain [] Routine 03/09/19 13:36 Culture,Blood [BC] Stat Date of Encounter: 03/12/19 Time of Encounter: 08:29 - Discharge Diagnosis (1) Cellulitis Priority: Primary Status: Acute Qualifiers: Site of cellulitis: extremity Site of cellulitis of extremity: toe Laterality: left Qualified Code(s): L03.032 - Cellulitis of left toe (2) Thrombocytopenia Priority: Secondary Status: Acute (3) Uncontrolled diabetes mellitus Priority: Secondary Status: Chronic Qualifiers: Diabetes mellitus type: type 2 Glycemic state: with hyperglycemia Qualified Code(s): E11.65 - Type 2 diabetes mellitus with hyperglycemia (4) BEN (obstructive sleep apnea) Priority: Secondary Status: Chronic Hospital course: Mr. Birmingham is a 58 year old male with history of uncontrolled insulin-dependent diabetes type 2, c/b PAD and diabetic foot ulcerations status post amputation of the left hallux 01/24/2019 presented with cellulitis of the stump of the left helix. He was treated with IV antibiotics and ID and podiatry were consulted. No further debridement was completed. Patient's condition improved and was discharged on doxycycline and Levaquin to finish a 14 day course of antibiotics. Follow-up tomorrow for outpatient wound care and with podiatry. Will also follow up with primary care provider. Blood sugars historically uncontrolled but recently up to hospital admission reports very good control. Did not make any changes to her diabetic regimen during hospital stay. Instructed patient to keep a log of his blood sugars and follow-up with primary care provider for further titration of insulin regimen. Discharge discussed with: patient - Time Spent with Patient Total time spent providing and/or coordinating discharge services: 40 minutes Time spent: Greater than 30 minutes - Discharge Medications Prescriptions: New Doxycycline 100 mg PO BID #20 capsule Levofloxacin [Levaquin] 750 mg PO Q24H #10 tablet Oxycodone HCl 5 mg PO Q8H PRN 7 Days #10 tablet PRN Reason: Pain Continued Aspirin 81 mg PO HS Lisinopril [Zestril] 20 mg PO DAILY Gabapentin [Neurontin] 300 mg PO BID Clopidogrel [Plavix] 75 mg PO DAILY Furosemide [Lasix] 20 - 40 mg PO BID PRN PRN Reason: SWELLING Insulin NPH Human Isophane [Novolin N] 30 unit SQ BID carBAMazepine [Tegretol] 200 mg PO HS Ergocalciferol (VITAMIN D2) [Vitamin D2] 50,000 units PO TH Metoprolol [Lopressor] 50 mg PO BID Simvastatin [Zocor] 40 mg PO HS Tramadol HCl [Ultram] 50 mg PO Q6H PRN PRN Reason: Pain Ubidecarenone/Vit E Acetate [Co Q-10 100 mg Softgel] 100 mg PO Q1W Liraglutide [Victoza 3-Roel] 1.8 mg SQ DAILY Home Medications: Aspirin 81 mg PO HS 11/02/15 [History] Clopidogrel [Plavix] 75 mg PO DAILY 11/02/15 [History] Furosemide [Lasix] 20 - 40 mg PO BID PRN 11/02/15 [History] Gabapentin [Neurontin] 300 mg PO BID 11/02/15 [History] Lisinopril [Zestril] 20 mg PO DAILY 11/02/15 [History] Ergocalciferol (VITAMIN D2) [Vitamin D2] 50,000 units PO TH 01/23/19 [History] Insulin NPH Human Isophane [Novolin N] 30 unit SQ BID 01/23/19 [History] Metoprolol [Lopressor] 50 mg PO BID 01/23/19 [History] Simvastatin [Zocor] 40 mg PO HS 01/23/19 [History] Tramadol HCl [Ultram] 50 mg PO Q6H PRN 01/23/19 [History] Ubidecarenone/Vit E Acetate [Co Q-10 100 mg Softgel] 100 mg PO Q1W 01/23/19 [History] carBAMazepine [Tegretol] 200 mg PO HS 01/23/19 [History] Liraglutide [Victoza 3-Roel] 1.8 mg SQ DAILY 03/09/19 [History] Doxycycline 100 mg PO BID #20 capsule 03/12/19 [Rx] Levofloxacin [Levaquin] 750 mg PO Q24H #10 tablet 03/12/19 [Rx] Oxycodone HCl 5 mg PO Q8H PRN 7 Days #10 tablet 03/12/19 [Rx] Allergies/Adverse Reactions: Allergy/AdvReac Type Severity Reaction Status Date / Time No Known Allergies Allergy Verified 03/09/19 14:09 Date of admission: 03/09/19 13:39 Primary care physician: PCP NONE Consults: 03/08/19 21:57 Consult to Podiatry [CONS] Routine Consulting Provider: [facility] Reason for Consult: Left great toe amputation site cellulitis Time Notified: 21:59 Call Completed: Yes 03/10/19 10:46 Consult to Infectious Diseases [CONS] Routine Consulting Provider: Infectious Disease [facility] Reason for Consult: diabetic L foot cellulitis 1 month after L hallux amputation Call Completed: No - Constitutional Vitals: Temp Pulse Resp BP Pulse Ox 98.5 F 72 17 133/80 100 03/12/19 06:41 03/12/19 06:41 03/12/19 06:41 03/12/19 06:41 03/12/19 06:41 General appearance: Present: cooperative, A&O X 3, pleasant, no acute distress, answers questions appropriately Exam: General: Ill-appearing and in no acute distress HEENT: No erythema of posterior pharynx. No exudates. Lymphatics: No mandibular or cervical lymphadenopathy Cardiovascular: RRR. No murmurs. No chest wall tenderness. Lungs: Clear to auscelltation bilaterally. Regular chest rise. Abdomen: Non-tender. No rebound or gaurding. Nl bowel sounds. Extremities: No edema. 2+ pulses radial and pedal pulses Skin: LLE s/p amputation of L great toe. Some erythema around this area but no discharge. Psych: Nl attention. A&Ox3 Neuro: compliance advisor II-XII intact. 5/5 strength. Sensation to light touch and pinprick intact. - Patient Status Disposition: Home, Self-Care Condition: Good Functional capacity at discharge: independent ambulation Overall status at discharge: patient is back to baseline - Discharge Instructions Follow Up With: NONE,PCP [Primary Care Provider] - - Diet and Activity Activity: increase activity as tolerated Diet: diabetic diet - VTE Documentation of Mechanical Device: Intermittent pneumatic compression device
[2019-03-12] MEDS ORDERED: Insulin NPH 100 UNIT/ML (x5UNIT) SQ SCH (09:00)
[2019-03-12] MEDS: Furosemide 20 MG TABLET PO SCH (09:22)
[2019-03-12] MEDS: Lisinopril 20 MG TABLET PO SCH (09:22)
[2019-03-12] MEDS: Gabapentin 300 MG CAPSULE PO SCH (09:22)
[2019-03-12] MEDS: Insulin LISPRO 300 UNITS/3 ML VIAL SQ SCH (09:24)
--- NOTE | 2019-03-12 09:29 | Infectious Disease Progress No ---
ID Progress Note Date of Encounter: 03/12/19 Time of Encounter: 09:26 - Subjective Subjective: Patient seen and examined. No acute events noted overnight. Patient states overall he feels well. Denies fevers, chills, rigors. Denies headache or neck pain. Denies chest pain. Reports chronic shortness of breath and cough there is at baseline due to his COPD. Denies nausea, vomiting, or diarrhea. States she has not had a bowel movement since admission and feels a little constipated. Denies abdominal pain or urinary complaints. Denies oral thrush or skin rashes. Pending discharge later today. - Objective CBC & Chem 7: 03/12/19 03:27 03/12/19 03:27 - Exam Vitals: Temp Pulse Resp BP Pulse Ox 98.5 F 72 17 133/80 100 03/12/19 06:41 03/12/19 06:41 03/12/19 06:41 03/12/19 06:41 03/12/19 06:41 Exam: Head: Atraumatic, normal inspection, normocephalic. Eye: EOMI, PERRLA, no scleral icterus noted. ENT: Mucous membranes moist. No odontogenic infection noted. Neck: Normal inspection, no meningismus. Respiratory: Clear to auscultation. No rales, respiratory distress, rhonchi, or wheezes noted. Cardiovascular: Regular rate and rhythm, S1 and S2 audible. No murmurs, rubs, or gallops. GI: Soft, obese, normal bowel sounds. Nontender. Extremities: Venous stasis dermatitis noted to the bilateral lower extremities. 1+ edema noted to the left lower extremity. Left foot dressing with small amount of serous drainage noted at the distal aspect of the first metatarsal. Neurological: Alert, oriented 3, no focal deficits. Psychiatric: normal affect, normal mood. Skin: Dry, intact, warm. Normal color. No rashes. - Assessment and Plan (1) Sepsis Current Visit: Yes Status: Acute Patient had 3 SIRS criteria on admission. Secondary to cellulitis left lower extremity. Improved. Afebrile overnight. White blood cell count normal. Tachycardia and tachypnea resolved. Blood cultures drawn 03/08/19 are no growth to date 2 sets. Repeat blood culture drawn 03/09/19 is no growth to date 1 set. Qualifiers: Sepsis type: sepsis due to unspecified organism Sepsis acute organ dysfunction status: unspecified Qualified Code(s): A41.9 - Sepsis, unspecified organism SNOMED Code(s): 75463583 (2) Diabetic foot infection Current Visit: No Status: Acute Initially left foot abscess with gas formation status post amputation of the left hallux 01/24/2019. Intra-Op cultures positive for Morganella morganii, pseudomonas aeruginosa and Streptococcus anginosus. Treated with cefepime followed by levofloxacin through 02/08/2019. Wound dehiscence due to mechanical trauma from walking and stepping on his foot. Recurrence of erythema edema and pain starting 03/08/2019. X-ray of the foot with no obvious osteomyelitis or gas in the tissue. Podiatry consulted. Improved. Currently on vancomycin and Zosyn. SNOMED Code(s): 192362761 (3) Superficial vein thrombosis Current Visit: Yes Status: Acute Venous duplex study showed a left greater saphenous BK acute thrombosis. Management per the primary team. SNOMED Code(s): 309413587 (4) CHF (congestive heart failure) Current Visit: No Status: Acute Qualifiers: Heart failure type: unspecified Heart failure chronicity: chronic Qualified Code(s): I50.9 - Heart failure, unspecified SNOMED Code(s): 52348308 (5) History of amputation of hallux Current Visit: Yes Status: Acute SNOMED Code(s): 061223681 (6) HTN (hypertension) Current Visit: No Status: Chronic Qualifiers: Hypertension type: essential hypertension Qualified Code(s): I10 - Essential (primary) hypertension SNOMED Code(s): 17751601 (7) Morbid obesity with BMI of 45.0-49.9, adult Current Visit: Yes Status: Acute SNOMED Code(s): 886260183, 25517277184495 (8) BEN (obstructive sleep apnea) Current Visit: No Status: Chronic SNOMED Code(s): 52327427 (9) Uncontrolled diabetes mellitus Current Visit: No Status: Chronic Recommend aggressive glucose monitoring and control to promote wound healing and prevent reinfection. Management per the primary team. Qualifiers: Diabetes mellitus type: type 2 Glycemic state: with hyperglycemia Qualified Code(s): E11.65 - Type 2 diabetes mellitus with hyperglycemia SNOMED Code(s): 64759379, 921545001 (10) CAD (coronary artery disease) Current Visit: No Status: Chronic Qualifiers: Coronary Disease-Associated Artery/Lesion type: [place] artery [place] vs. transplanted heart: [place] heart Associated angina: without angina Qualified Code(s): I25.10 - Atherosclerotic heart disease of [place] coronary artery wit hout angina pectoris SNOMED Code(s): 20970908 - Recommendations Recommendations: Await blood cultures are finalized. Await wound cultures to finalize. Wound care and activity restrictions per the podiatry team. Glucose management per the primary team. Continue vancomycin IV. Pharmacy to dose. Goal trough approximately 15. Continue Zosyn 3.375 g IV every 8 hours. Duration of treatment depends on the clinical picture, but likely total of 14 days. Can transition to doxycycline 100 mg by mouth twice a day and Levaquin 750 mg by mouth daily to complete the course of treatment (to treat through 03/21/19). Monitor labs and for drug toxicity and dose adjust antibiotics. - VTE Documentation of Mechanical Device: Intermittent pneumatic compression device Consult Discharge Plan - Plan Referrals: Cher Pack SENIOR PROJECT ENGINEER [Advanced Practice Nurse] - (Web request. Office will call patient with date and time of appointment. Thank you) Prescriptions: Doxycycline 100 mg PO BID #20 capsule Transmission Status: Received by [employer] Levofloxacin [Levaquin] 750 mg PO Q24H #10 tablet Transmission Status: Received by [email or web address] Oxycodone HCl 5 mg PO Q8H PRN 7 Days #10 tablet PRN Reason: Pain Prescription Printed
[2019-03-12 10:03] VITALS: BP 153/82
--- NOTE | 2019-03-12 10:08 | Podiatry Progress Note ---
Date of Encounter: 03/12/19 Time of Encounter: 11:15 - Assessment and Plan (1) Cellulitis of right foot Status: Acute Assessment: Erythema noted to right 1st metatarsal head and diffuse erythema noted to right midfoot, improved from previous assessment 1/4 DP/PT Edema 2/4 RLE No active drainage noted Minimal slough noted to wound bed, hyperkeratosis noted to periwound WBC 4.7, afebrile overnight ESR 14 Blood cultures pending, wound cultures pending Plan: Continue IV atb, ID consulted, appreciate recommendations, agree to d/c with oral antibiotics At this time do not believe there to be any abscess, will continue to monitor, if erythema extends beyond demarcation line will consider MRI or CT Follow up in wound care with Dr. Cabral next , please arrange prior to d ischarge Imagining: Impressions: Venous duplex Left lower extremity: normal deep exam. Lower extremity abnormal superficial exam: left great saphenous BK demonstrates acute thrombosis. Right lower extremity: normal contralateral exam. (2) Chronic ulcer of right foot with fat layer exposed Status: Chronic Assessment: Pierce stage II ulceration to right 1st MTPJ 90 % of wound bed granular, minimal slough noted Hyperkeratosis noted to periwound No active drainage noted, unable to express any drainage Tunneling noted 1.2 cm at 12 o'clock Plan: Dressing changed, see below Agree with discharging on oral atb Follow up in wound care center with Dr. Cabral next , please make appointment prior to d/c Cleansed with hibiclense, 0.9 NS Covered with calcium alginate, 4x4 dry gauze, kerlix, and medipore tape Subjective Principal diagnosis: Cellulitis Interval history: Patient awake in bed. Alert and oriented x 3. at bedside. Reports overall improved well-being. Denies fevers, chills, nausea, vomiting, or diarrhea overnight. Denies any chest pain. Reports calf pain but reports improvement from Sunday. Reports shortness of breath, but nothing abnormal d/t COPD. Discussed discharge. Patient stated he wanted to make sure podiatry and specifically Dr. Cabral is agreeable to discharge, discussed improvement of cellulitis and follow up in wound care. Verbalized understanding. No other questions or concerns at this time Objective - Vital Signs Vital Signs: Vital Signs Temp Pulse Resp BP Pulse Ox 03/12/19 09:57 98.2 F 81 18 153/82 98 03/12/19 06:41 98.5 F 72 17 133/80 100 03/12/19 03:57 97.4 F L 69 17 111/67 100 03/11/19 23:57 97.6 F 76 15 131/69 100 03/11/19 19:41 98.5 F 76 20 158/75 97 03/11/19 15:10 97.9 F 70 16 123/70 99 03/11/19 10:25 98.5 F 64 15 117/66 98 Intake and Output 03/11/19 03/12/19 03/12/19 23:59 07:59 15:59 Intake Total 320 / 1900 500 / 600 100 / 600 Output Total 850 / 3300 0 / 0 0 / 0 Balance -530 / -1400 500 / 600 100 / 600 Intake: IV Fluids 200 / 1300 500 / 600 100 / 600 Zosyn 3.375 GM In 0.9 % Sodium 200 / 300 100 / 100 Chloride (Mini-Bag +) 100 ML @ 25 mls/hr IVPB Q8HR [facility] Rx#: [id number] Vancocin 1,750 MG In 0.9 % 500 / 500 Sodium Chloride 500 ML @ 333.3 mls/hr IVPB Q12H [facility] Rx#: [id number] Oral 120 / 600 Output: Urine 850 / 3300 0 / 0 0 / 0 Other: Meal Dinner Percent of Meal Consumed 100% # Bowel Movements 0 Weight 151 kg Blood Glucose* 254 250 Patient Weight 03/12/19 23:59 Weight 151 kg - Exam Exam: Constitiutional: Alert and oriented x 3. Well nourished. No acute distress noted Vascular: 2/4 DP/PT bilaterally, CFT <3 sec to all digits, warm to warm from tibia to toes bilaterally, left hallux amp, no calf pain with squeeze BLE Neurologic: Absent sensation to touch, normal plantar response, Dermatologic: Sugical dehiscence left 1st met head, tunneling noted 1.2 cm at 12 o'clock, erythema noted, improved from previous assessment, no active drainage noted, unable to express any drainage, 90% granulation tissue noted, Hyperkeratosis noted to periwound Musculoskeletal: 5/5 muscle strength and normal tone bilaterally. - Lab Result Diagrams: 03/12/19 03:27 03/12/19 03:27 Labs: Abnormal lab results RBC 3.69 M/mcL (4.19-5.50) L 03/12/19 03:27 Hgb 11.2 g/dL (12.9-16.9) L 03/12/19 03:27 Hct 32.3 % (37.5-50.1) L 03/12/19 03:27 Plt Count 116 K/mcL (140-400) L 03/12/19 03:27 ESR 14 mm/hr (0-10) H 03/08/19 19:25 PT 13.8 Seconds (9.4-12.1) H 03/09/19 04:36 Sodium 134 mEq/L (136-145) L 03/11/19 02:52 Carbon Dioxide 22 mEq/L (23-29) L 03/10/19 04:45 BUN 21 mg/dL (6-20) H 03/12/19 03:27 Glucose 234 mg/dL (70-105) H 03/12/19 03:27 POC Glucose 254 mg/dL (70-99) H 03/11/19 20:40 Calcium 8.3 mg/dL (8.6-10.3) L 03/12/19 03:27 C-Reactive Protein 41 mg/L (Less than 10) H 03/08/19 19:25 Vancomycin Trough 13 mcg/mL (5-10) H 03/11/19 20:00 Microbiology, Last 48 Hours 03/11/19 12:05 Wound Culture - Preliminary Left Foot 03/11/19 12:05 Anaerobic Culture - Preliminary Left Foot Culture is incubating. - VTE Documentation of Mechanical Device: Intermittent pneumatic compression device Consult Discharge Plan - Plan Instructions: Cellulitis (DC) Referrals: Samuel Cabral DPM [Partnered Physician] - 03/20/19 10:00 am (You will see Dr. Cabral in the [facility]. [phone]. Thank you) Bianca Marquez [Advanced Practice Nurse] - 03/25/19 7:30 am (Nail care in [place]) Cher Pack CNP [Advanced Practice Nurse] - (Web request. Office will call patient with date and time of appointment. Thank you) Prescriptions: Doxycycline 100 mg PO BID #20 capsule Transmission Status: Received by [facility] Levofloxacin [Levaquin] 750 mg PO Q24H #10 tablet Transmission Status: Received by [facility] Oxycodone HCl 5 mg PO Q8H PRN 7 Days #10 tablet PRN Reason: Pain Prescription Printed
[2019-03-12] MEDS ORDERED: Aminoglycoside Consult 1 EACH MC ONE (11:46)
== END 2019-03-12 11:47 | disposition home or self-care (01) | DRG 564 ==
LOC: EMEROOARM 18:11 → 3ANU 18:11 → SUATTDRO 21:22 → 3ANU 22:45
PROVIDERS: ADMIT Internal Medicine; ATTEND Internal Medicine

== ENCOUNTER 2020-01-15 17:09 | Inpatient (IN) ==
[2020-01-15] MEDS ORDERED: Isovue-370 500 ML BOTTLE IVP ONE (17:43)
[2020-01-15] MEDS ORDERED: Piperacillin/Tazobactam 3.375 GM in Water for inj. (sterile) 20 ML IVP ONE (17:44)
[2020-01-15] MEDS ORDERED: 0.9 % Sodium Chloride 1,000 ML IVC ONE (17:45)
[2020-01-15] MEDS ORDERED: Vancomycin 2,000 MG/520 ML IV.SOLN IVPB ONE (18:00)
[2020-01-15 18:27] LABS: Basophils # 0.1 K/mcL (0.0-0.2); Basophils % 0.8 %; Eosinophils # 0.2 K/mcL (0.0-0.6); Eosinophils % 2.7 %; Hematocrit 40.1 % (37.5-50.1); Hemoglobin 13.9 g/dL (12.9-16.9); Immature Granulocytes % 0.3 % (0-4); Lymphocytes # 1.3 K/mcL (0.6-4.6); Lymphocytes % 20.4 %; Mean Corpuscular HGB Conc 34.7 g/dL (31.6-35.5); Mean Corpuscular Hemoglobin 30.3 pg (28.0-33.3); Mean Corpuscular Volume 87.6 fL (83.0-100.0); Mean Platelet Volume 10.7 fL (9.4-12.4); Monocytes # 0.7 K/mcL (0.0-1.3); Monocytes % 11.4 %; Neutrophils # 4.1 K/mcL (1.6-8.9); Platelet Count 165 K/mcL (140-400); Red Blood Count 4.58 M/mcL (4.19-5.50); Red Cell Distribution Width 14.1 % (11.5-14.5); Segmented Neutrophils % 64.4 %; White Blood Count 6.3 K/mcL (4.3-11.1)
[2020-01-15 18:47] LABS: BUN/Creatinine Ratio 32 (6-26); Blood Urea Nitrogen 35 mg/dL (6-20); Calcium 8.7 mg/dL (8.6-10.3); Carbon Dioxide 24 mEq/L (23-29); Chloride 103 mEq/L (98-107); Glucose 347 mg/dL (70-105); Osmolality,Calculated 300 (280-300); Potassium 4.9 mEq/L (3.5-5.1); Sodium 134 mEq/L (136-145); eGFR For African Americans > 60 (> 60); eGFR For Non-African Americans > 60 (> 60)
[2020-01-15] MEDS ORDERED: Insulin Regular, Human 100 UNIT/ML SQ ONE (21:49)
[2020-01-15] MEDS ORDERED: Naloxone 0.4 MG/ML INJ IVP PRN (22:04)
[2020-01-15] MEDS ORDERED: 0.9 % Sodium Chloride 1,000 ML IVC SCH (22:15)
[2020-01-16] MEDS: Piperacillin/Tazobactam 3.375 GM in 0.9 % Sodium Chloride Mini Bag 100 ML IVPB SCH ×3 (01:33→17:49)
[2020-01-16] MEDS ORDERED: Dextrose Gel 15 GM/37.5 ML TUBE PO PRN ×2 (01:39)
[2020-01-16] MEDS ORDERED: *HR* Dextrose 50 % in Water (Vial) 50 ML VIAL IVP PRN (01:39)
[2020-01-16] MEDS ORDERED: D5% in Water 1,000 ML IVC PRN (01:39)
[2020-01-16] MEDS ORDERED: *HR* Heparin 5,000 UNIT/ML VIAL SQ ONE (01:41)
[2020-01-16] MEDS: Insulin LISPRO 300 UNITS/3 ML VIAL SQ SCH ×5 (04:26→20:55)
[2020-01-16 05:27] LABS: Basophils # 0.1 K/mcL (0.0-0.2); Eosinophils # 0.2 K/mcL (0.0-0.6); Eosinophils % 2.8 %; Hematocrit 39.3 % (37.5-50.1); Hemoglobin 13.1 g/dL (12.9-16.9); Immature Granulocytes % 0.3 % (0-4); Lymphocytes # 1.5 K/mcL (0.6-4.6); Lymphocytes % 24.9 %; Mean Corpuscular HGB Conc 33.3 g/dL (31.6-35.5); Mean Corpuscular Hemoglobin 29.6 pg (28.0-33.3); Mean Corpuscular Volume 88.7 fL (83.0-100.0); Mean Platelet Volume 10.8 fL (9.4-12.4); Monocytes # 0.7 K/mcL (0.0-1.3); Monocytes % 12.1 %; Neutrophils # 3.6 K/mcL (1.6-8.9); Platelet Count 190 K/mcL (140-400); Red Blood Count 4.43 M/mcL (4.19-5.50); Segmented Neutrophils % 58.9 %; White Blood Count 6.1 K/mcL (4.3-11.1)
[2020-01-16 05:43] LABS: Alanine Aminotransferase 9 Units/L (7-52); Albumin 3.3 g/dL (3.5-5.7); Albumin/Globulin Ratio 1.4 (1.1-2.2); Alkaline Phosphatase 74 Units/L (34-104); Aspartate Amino Transferase 9 Units/L (13-39); BUN/Creatinine Ratio 32 (6-26); Bilirubin,Total 0.7 mg/dL (0.3-1.0); Blood Urea Nitrogen 30 mg/dL (6-20); Calcium 8.4 mg/dL (8.6-10.3); Carbon Dioxide 24 mEq/L (23-29); Chloride 108 mEq/L (98-107); Globulin 2.3 g/dL (2.4-3.5); Glucose 211 mg/dL (70-105); Osmolality,Calculated 298 (280-300); Potassium 4.3 mEq/L (3.5-5.1); Sodium 138 mEq/L (136-145); Total Protein 5.6 g/dL (6.4-8.9); eGFR For African Americans > 60 (> 60); eGFR For Non-African Americans > 60 (> 60)
[2020-01-16] MEDS: Vancomycin 1,500 MG/265 ML IV.SOLN IVPB SCH ×2 (06:15→17:49)
[2020-01-16] MEDS: Gabapentin 300 MG CAPSULE PO SCH ×2 (08:13→20:54)
[2020-01-16] MEDS: lisinopriL 20 MG TABLET PO SCH (08:14)
[2020-01-16 08:32] LABS: Estimated Average Glucose 272 mg/dl
[2020-01-16] MEDS ORDERED: Insulin DETEMIR 100 UNIT/ML X5UNITS SQ SCH (11:15)
[2020-01-16] MEDS: Aspirin 81 MG TAB.CHEW PO SCH (20:54)
[2020-01-17] MEDS: *HR* Heparin 5,000 UNIT/ML VIAL SQ SCH ×4 (00:11→23:44)
[2020-01-17] MEDS: Piperacillin/Tazobactam 3.375 GM in 0.9 % Sodium Chloride Mini Bag 100 ML IVPB SCH ×3 (01:32→19:33)
[2020-01-17 06:06] LABS: Basophils # 0.1 K/mcL (0.0-0.2); Eosinophils # 0.1 K/mcL (0.0-0.6); Eosinophils % 2.7 %; Hematocrit 37.7 % (37.5-50.1); Hemoglobin 12.9 g/dL (12.9-16.9); Immature Granulocytes % 0.2 % (0-4); Lymphocytes # 1.5 K/mcL (0.6-4.6); Lymphocytes % 29.5 %; Mean Corpuscular HGB Conc 34.2 g/dL (31.6-35.5); Mean Corpuscular Hemoglobin 29.7 pg (28.0-33.3); Mean Corpuscular Volume 86.7 fL (83.0-100.0); Monocytes # 0.5 K/mcL (0.0-1.3); Monocytes % 9.9 %; Neutrophils # 2.9 K/mcL (1.6-8.9); Platelet Count 182 K/mcL (140-400); Red Blood Count 4.35 M/mcL (4.19-5.50); Red Cell Distribution Width 13.8 % (11.5-14.5); Segmented Neutrophils % 56.7 %; White Blood Count 5.2 K/mcL (4.3-11.1)
[2020-01-17 06:26] LABS: BUN/Creatinine Ratio 27 (6-26); Blood Urea Nitrogen 24 mg/dL (6-20); Calcium 8.9 mg/dL (8.6-10.3); Carbon Dioxide 23 mEq/L (23-29); Chloride 106 mEq/L (98-107); Glucose 195 mg/dL (70-105); Osmolality,Calculated 293 (280-300); Potassium 4.2 mEq/L (3.5-5.1); Sodium 137 mEq/L (136-145); eGFR For African Americans > 60 (> 60); eGFR For Non-African Americans > 60 (> 60)
[2020-01-17] MEDS: Vancomycin 1,500 MG/265 ML IV.SOLN IVPB SCH ×2 (06:40→17:06)
[2020-01-17] MEDS: lisinopriL 20 MG TABLET PO SCH (08:28)
[2020-01-17] MEDS: Insulin LISPRO 300 UNITS/3 ML VIAL SQ SCH ×4 (08:28→21:03)
[2020-01-17] MEDS: Gabapentin 300 MG CAPSULE PO SCH ×2 (08:28→19:44)
[2020-01-17] MEDS: Insulin DETEMIR 100 UNIT/ML X5UNITS SQ SCH ×2 (08:31→21:03)
[2020-01-17] MEDS: Aspirin 81 MG TAB.CHEW PO SCH (19:45)
[2020-01-18] MEDS: Piperacillin/Tazobactam 3.375 GM in 0.9 % Sodium Chloride Mini Bag 100 ML IVPB SCH ×2 (01:48→07:52)
[2020-01-18] MEDS: Vancomycin 1,500 MG/265 ML IV.SOLN IVPB SCH (05:42)
[2020-01-18] MEDS: *HR* Heparin 5,000 UNIT/ML VIAL SQ SCH (05:47)
[2020-01-18 06:00] LABS: Blood Urea Nitrogen 21 mg/dL (6-20); Carbon Dioxide 25 mEq/L (23-29); Chloride 104 mEq/L (98-107); Potassium 4.3 mEq/L (3.5-5.1); Sodium 136 mEq/L (136-145)
[2020-01-18 06:01] LABS: BUN/Creatinine Ratio 20 (6-26); Calcium 8.8 mg/dL (8.6-10.3); Glucose 235 mg/dL (70-105); Osmolality,Calculated 293 (280-300); eGFR For African Americans > 60 (> 60); eGFR For Non-African Americans > 60 (> 60)
[2020-01-18 06:31] VITALS: BP 150/83
[2020-01-18] MEDS: Gabapentin 300 MG CAPSULE PO SCH (07:50)
[2020-01-18] MEDS: Insulin DETEMIR 100 UNIT/ML X5UNITS SQ SCH (07:50)
[2020-01-18] MEDS: lisinopriL 20 MG TABLET PO SCH (07:50)
[2020-01-18] MEDS: Insulin LISPRO 300 UNITS/3 ML VIAL SQ SCH (07:51)
[2020-01-22] MEDS ORDERED: Cholecalciferol (D-3) 1,000 UNIT (25MCG) TABLET PO SCH (09:00)
== END 2020-01-18 12:30 | disposition home or self-care (01) | DRG 603 ==
LOC: 3BNU 17:09 → EMEROOARM 17:09 → 3ANU 22:41 → SUATTDRO 01-16 13:46
PROVIDERS: ADMIT Student in an Organized Health Care Education/Training Program; ATTEND Family Medicine

== ENCOUNTER 2020-08-19 12:18 | Inpatient (IN) ==
[2020-08-19 13:20] LABS: Bilirubin,Urine Negative (Negative); Blood,Urine Negative (Negative); Clarity,Urine Clear (Clear); Color,Urine Yellow (Yellow); Glucose,Urine (UA) >=1000 mg/dL (Normal); Hyaline Casts,Urine Few per lpf (None Seen); Ketones,Urine Negative (Negative); Leukocyte Esterase,Urine Negative (Negative); Nitrite,Urine Negative (Negative); Protein,Urine 200 mg/dL (Neg-Trace); RBC,Urine 0-3 per hpf (0-3); Specific Gravity,Urine 1.021 (1.010-1.025); Squamous Epithelial Cell,Urine Few per hpf (None-Few); Urobilinogen,Urine Normal (Normal); WBC,Urine 0-3 per hpf (0-3)
[2020-08-19 13:44] LABS: Basophils % 0.3 %; Eosinophils # 0.1 K/mcL (0.0-0.6); Eosinophils % 0.5 %; Hematocrit 37.8 % (37.5-50.1); Hemoglobin 12.9 g/dL (12.9-16.9); Immature Granulocytes % 0.3 % (0-4); Lymphocytes # 1.2 K/mcL (0.6-4.6); Lymphocytes % 10.4 %; Mean Corpuscular HGB Conc 34.1 g/dL (31.6-35.5); Mean Corpuscular Hemoglobin 30.2 pg (28.0-33.3); Mean Corpuscular Volume 88.5 fL (83.0-100.0); Mean Platelet Volume 10.6 fL (9.4-12.4); Monocytes # 1.5 K/mcL (0.0-1.3); Monocytes % 12.5 %; Platelet Count 163 K/mcL (140-400); Red Blood Count 4.27 M/mcL (4.19-5.50); Red Cell Distribution Width 14.9 % (11.5-14.5); White Blood Count 11.9 K/mcL (4.3-11.1)
[2020-08-19 13:49] LABS: INR 1.3; Prothrombin Time 14.4 Seconds (9.4-12.1)
[2020-08-19 13:52] LABS: Activated Partial Thrombo Time 29.7 Seconds (26.0-36.0)
[2020-08-19] MEDS ORDERED: Acetaminophen 325 MG TABLET PO ONE (14:04)
[2020-08-19 14:07] LABS: Alanine Aminotransferase 13 Units/L (7-52); Albumin 4.1 g/dL (3.5-5.7); Albumin/Globulin Ratio 1.4 (1.1-2.2); Alkaline Phosphatase 75 Units/L (34-104); Aspartate Amino Transferase 15 Units/L (13-39); BUN/Creatinine Ratio 28 (6-26); Bilirubin,Direct 0.5 mg/dL (0.0-0.2); Bilirubin,Total 1.5 mg/dL (0.3-1.0); Blood Urea Nitrogen 30 mg/dL (6-20); Calcium 9.2 mg/dL (8.6-10.3); Carbon Dioxide 27 mEq/L (23-29); Chloride 100 mEq/L (98-107); Glucose 224 mg/dL (70-105); Lipase 5 Units/L (11-82); Osmolality,Calculated 293 (280-300); Potassium 3.9 mEq/L (3.5-5.1); Sodium 135 mEq/L (136-145); Total Protein 7.1 g/dL (6.4-8.9); Troponin I 0.67 ng/mL (< 0.04); eGFR For African Americans > 60 (> 60); eGFR For Non-African Americans > 60 (> 60)
[2020-08-19] MEDS ORDERED: Aspirin 81 MG TAB.CHEW PO SCH (14:45)
[2020-08-19] MEDS ORDERED: Isovue-370 500 ML BOTTLE IVP ONE ×2 (14:45→15:13)
[2020-08-19] MEDS ORDERED: Aspirin 81 MG TAB.CHEW PO STA (15:40)
[2020-08-19 16:50] LABS: Estimated Average Glucose 192 mg/dl; Hemoglobin A1C 8.3 %
[2020-08-19 16:53] LABS: C-Reactive Protein 276 mg/L (Less than 10)
[2020-08-19] MEDS ORDERED: Naloxone 0.4 MG/ML INJ IVP PRN (17:18)
[2020-08-19] MEDS ORDERED: Ondansetron 4 MG/2 ML VIAL IVP PRN (17:18)
[2020-08-19] MEDS ORDERED: D5% in Water 1,000 ML IVC PRN (17:21)
[2020-08-19] MEDS ORDERED: *HR* Dextrose 50 % in Water (Vial) 50 ML VIAL IVP PRN (17:21)
[2020-08-19] MEDS ORDERED: Dextrose Gel 15 GM/37.5 ML TUBE PO PRN ×2 (17:21)
[2020-08-19] MEDS ORDERED: 0.9 % Sodium Chloride 1,000 ML IVC SCH (17:30)
[2020-08-19] MEDS: *HR* Heparin 5,000 UNIT/ML VIAL SQ SCH (18:51)
[2020-08-19] MEDS: Vancomycin 2,000 MG/520 ML IV.SOLN IVPB SCH (18:51)
[2020-08-19] MEDS: Piperacillin/Tazobactam 3.375 GM in 0.9 % Sodium Chloride Mini Bag 100 ML IVPB SCH (18:51)
[2020-08-19] MEDS: Insulin LISPRO 300 UNITS/3 ML VIAL SUBQ SCH (20:54)
[2020-08-19] MEDS: Insulin DETEMIR 100 UNIT/ML X5UNITS SUBQ SCH (23:08)
[2020-08-20 01:12] LABS: Basophils % 0.4 %; Eosinophils # 0.1 K/mcL (0.0-0.6); Eosinophils % 0.9 %; Hemoglobin 12.1 g/dL (12.9-16.9); Immature Granulocytes % 0.3 % (0-4); Lymphocytes # 0.9 K/mcL (0.6-4.6); Lymphocytes % 9.3 %; Mean Corpuscular HGB Conc 34.6 g/dL (31.6-35.5); Mean Corpuscular Hemoglobin 31.1 pg (28.0-33.3); Mean Platelet Volume 10.7 fL (9.4-12.4); Monocytes % 10.6 %; Neutrophils # 7.2 K/mcL (1.6-8.9); Platelet Count 148 K/mcL (140-400); Red Blood Count 3.89 M/mcL (4.19-5.50); Segmented Neutrophils % 78.5 %; White Blood Count 9.1 K/mcL (4.3-11.1)
[2020-08-20 01:34] LABS: BUN/Creatinine Ratio 29 (6-26); Blood Urea Nitrogen 29 mg/dL (6-20); Calcium 8.5 mg/dL (8.6-10.3); Carbon Dioxide 24 mEq/L (23-29); Chloride 103 mEq/L (98-107); Glucose 246 mg/dL (70-105); Osmolality,Calculated 298 (280-300); Potassium 3.7 mEq/L (3.5-5.1); Sodium 137 mEq/L (136-145); eGFR For African Americans > 60 (> 60); eGFR For Non-African Americans > 60 (> 60)
[2020-08-20] MEDS: Piperacillin/Tazobactam 3.375 GM in 0.9 % Sodium Chloride Mini Bag 100 ML IVPB SCH ×3 (02:11→17:53)
[2020-08-20] MEDS: *HR* Heparin 5,000 UNIT/ML VIAL SQ SCH ×2 (05:34→17:54)
[2020-08-20] MEDS: Vancomycin 2,000 MG/520 ML IV.SOLN IVPB SCH ×2 (06:00→17:54)
[2020-08-20] MEDS: Insulin LISPRO 300 UNITS/3 ML VIAL SUBQ SCH ×4 (07:59→22:22)
[2020-08-20] MEDS ORDERED: Perflutren Lipid Microsphere 1.3 ML in 0.9 % Sodium Chloride 8.7 ML IVP PRN ×2 (10:28→10:34)
[2020-08-20] MEDS ORDERED: Regadenoson 0.4 MG/5 ML SYRINGE IVP ONE (10:51)
[2020-08-20] MEDS: Gabapentin 300 MG CAPSULE PO SCH ×2 (10:52→22:17)
[2020-08-20] MEDS ORDERED: Vancomycin 1,500 MG/265 ML IV.SOLN IVPB SCH (18:00)
[2020-08-20] MEDS: Aspirin 81 MG TAB.CHEW PO SCH (22:17)
[2020-08-20] MEDS: Insulin DETEMIR 100 UNIT/ML X5UNITS SUBQ SCH (22:22)
[2020-08-20] MEDS: Ipratropium/Albuterol Neb 3 ML IH SCH (22:37)
[2020-08-20] MEDS: Budesonide/Formoterol 160/4.5 1 PUFF INH IH SCH (22:37)
[2020-08-21 01:15] LABS: Hematocrit 33.5 % (37.5-50.1); Hemoglobin 11.2 g/dL (12.9-16.9); Mean Corpuscular HGB Conc 33.4 g/dL (31.6-35.5); Mean Corpuscular Hemoglobin 30.4 pg (28.0-33.3); Mean Platelet Volume 10.3 fL (9.4-12.4); Platelet Count 166 K/mcL (140-400); Red Blood Count 3.68 M/mcL (4.19-5.50); Red Cell Distribution Width 14.6 % (11.5-14.5); White Blood Count 7.7 K/mcL (4.3-11.1)
[2020-08-21 01:36] LABS: BUN/Creatinine Ratio 27 (6-26); Blood Urea Nitrogen 26 mg/dL (6-20); Calcium 8.2 mg/dL (8.6-10.3); Carbon Dioxide 27 mEq/L (23-29); Chloride 102 mEq/L (98-107); Glucose 237 mg/dL (70-105); Osmolality,Calculated 292 (280-300); Potassium 3.9 mEq/L (3.5-5.1); Sodium 135 mEq/L (136-145); eGFR For African Americans > 60 (> 60); eGFR For Non-African Americans > 60 (> 60)
[2020-08-21] MEDS: Piperacillin/Tazobactam 3.375 GM in 0.9 % Sodium Chloride Mini Bag 100 ML IVPB SCH ×3 (02:04→18:25)
[2020-08-21] MEDS: Ipratropium/Albuterol Neb 3 ML IH SCH ×4 (04:18→22:23)
[2020-08-21] MEDS: *HR* Heparin 5,000 UNIT/ML VIAL SQ SCH ×2 (05:55→18:25)
[2020-08-21] MEDS: Vancomycin 2,000 MG/520 ML IV.SOLN IVPB SCH ×2 (06:46→18:27)
[2020-08-21] MEDS: Gabapentin 300 MG CAPSULE PO SCH ×2 (08:01→20:28)
[2020-08-21] MEDS: Insulin LISPRO 300 UNITS/3 ML VIAL SUBQ SCH ×5 (08:05→20:30)
[2020-08-21] MEDS: Budesonide/Formoterol 160/4.5 1 PUFF INH IH SCH ×2 (11:10→22:23)
[2020-08-21] MEDS: Furosemide 20 MG TABLET PO SCH ×2 (11:55→16:03)
[2020-08-21] MEDS: Insulin DETEMIR 100 UNIT/ML X5UNITS SUBQ SCH (20:27)
[2020-08-21] MEDS: Aspirin 81 MG TAB.CHEW PO SCH (20:28)
[2020-08-22] MEDS: Piperacillin/Tazobactam 3.375 GM in 0.9 % Sodium Chloride Mini Bag 100 ML IVPB SCH ×3 (02:31→17:11)
[2020-08-22] MEDS: Ipratropium/Albuterol Neb 3 ML IH SCH ×4 (03:36→22:10)
[2020-08-22] MEDS: Vancomycin 2,000 MG/520 ML IV.SOLN IVPB SCH ×2 (05:51→17:11)
[2020-08-22] MEDS: *HR* Heparin 5,000 UNIT/ML VIAL SQ SCH ×2 (05:51→17:32)
[2020-08-22] MEDS: Insulin LISPRO 300 UNITS/3 ML VIAL SUBQ SCH ×7 (08:08→19:45)
[2020-08-22] MEDS: Insulin DETEMIR 100 UNIT/ML X5UNITS SUBQ SCH ×2 (08:09→19:44)
[2020-08-22] MEDS: Furosemide 20 MG TABLET PO SCH ×2 (08:11→17:11)
[2020-08-22] MEDS: Gabapentin 300 MG CAPSULE PO SCH ×2 (08:11→19:44)
[2020-08-22] MEDS: Budesonide/Formoterol 160/4.5 1 PUFF INH IH SCH ×2 (10:56→22:10)
[2020-08-22] MEDS: Aspirin 81 MG TAB.CHEW PO SCH (19:44)
[2020-08-23] MEDS: Piperacillin/Tazobactam 3.375 GM in 0.9 % Sodium Chloride Mini Bag 100 ML IVPB SCH ×3 (01:28→18:42)
[2020-08-23] MEDS: Ipratropium/Albuterol Neb 3 ML IH SCH ×4 (03:47→21:53)
[2020-08-23 04:29] LABS: Hematocrit 30.9 % (37.5-50.1); Hemoglobin 10.5 g/dL (12.9-16.9); Mean Corpuscular Hemoglobin 29.8 pg (28.0-33.3); Mean Corpuscular Volume 87.8 fL (83.0-100.0); Mean Platelet Volume 9.8 fL (9.4-12.4); Platelet Count 211 K/mcL (140-400); Red Blood Count 3.52 M/mcL (4.19-5.50); Red Cell Distribution Width 14.2 % (11.5-14.5); White Blood Count 6.2 K/mcL (4.3-11.1)
[2020-08-23 04:46] LABS: BUN/Creatinine Ratio 22 (6-26); Blood Urea Nitrogen 26 mg/dL (6-20); Calcium 8.5 mg/dL (8.6-10.3); Carbon Dioxide 27 mEq/L (23-29); Chloride 104 mEq/L (98-107); Glucose 162 mg/dL (70-105); Osmolality,Calculated 292 (280-300); Potassium 3.6 mEq/L (3.5-5.1); Sodium 137 mEq/L (136-145); eGFR For African Americans > 60 (> 60); eGFR For Non-African Americans > 60 (> 60)
[2020-08-23 04:47] LABS: BUN/Creatinine Ratio 22 (6-26); Blood Urea Nitrogen 26 mg/dL (6-20); eGFR For African Americans > 60 (> 60); eGFR For Non-African Americans > 60 (> 60)
[2020-08-23] MEDS: Vancomycin 2,000 MG/520 ML IV.SOLN IVPB SCH (06:11)
[2020-08-23] MEDS: *HR* Heparin 5,000 UNIT/ML VIAL SQ SCH ×2 (07:00→15:54)
[2020-08-23] MEDS: Insulin DETEMIR 100 UNIT/ML X5UNITS SUBQ SCH (08:26)
[2020-08-23] MEDS: Insulin LISPRO 300 UNITS/3 ML VIAL SUBQ SCH ×6 (08:26→16:03)
[2020-08-23] MEDS: Gabapentin 300 MG CAPSULE PO SCH (09:34)
[2020-08-23] MEDS: Budesonide/Formoterol 160/4.5 1 PUFF INH IH SCH ×2 (10:00→21:53)
[2020-08-23] MEDS ORDERED: Lidocaine 1% 20 ML MDV ONE (19:07)
[2020-08-23] MEDS ORDERED: Vancomycin 1,000 MG VIAL ONE (19:11)
[2020-08-23] MEDS ORDERED: Lidocaine -MPF 1% 5 ML AMPUL ONE (19:18)
[2020-08-23] MEDS ORDERED: Ondansetron 4 MG/2 ML VIAL ONE (19:18)
[2020-08-23] MEDS ORDERED: *HR* Midazolam HCl 2 MG/2 ML VIAL ONE (19:19)
[2020-08-23] MEDS ORDERED: *HR* FentaNYL (PF) 100 MCG/2 ML VIAL ONE (19:19)
[2020-08-23] MEDS ORDERED: *HR* Labetalol 20 MG/4 ML SYRINGE IVP ONE (20:00)
[2020-08-23] MEDS ORDERED: Vancomycin 1,500 MG/265 ML IV.SOLN IVPB SCH (21:00)
[2020-08-23] MEDS ORDERED: *HR* Dextrose 50 % in Water (Vial) 50 ML VIAL IVP PRN (23:21)
[2020-08-23] MEDS ORDERED: D5% in Water 1,000 ML IVC PRN (23:21)
[2020-08-23] MEDS ORDERED: Dextrose Gel 15 GM/37.5 ML TUBE PO PRN ×2 (23:21)
[2020-08-23] MEDS ORDERED: Naloxone 0.4 MG/ML INJ IVP PRN (23:21)
[2020-08-24] MEDS: Insulin DETEMIR 100 UNIT/ML X5UNITS SUBQ SCH ×3 (00:09→21:23)
[2020-08-24] MEDS: Vancomycin 1,500 MG/265 ML IV.SOLN IVPB SCH ×2 (00:10→12:03)
[2020-08-24] MEDS: Insulin LISPRO 300 UNITS/3 ML VIAL SUBQ SCH ×8 (00:25→17:09)
[2020-08-24] MEDS: Ipratropium/Albuterol Neb 3 ML IH SCH ×4 (03:39→21:59)
[2020-08-24] MEDS: Piperacillin/Tazobactam 3.375 GM in 0.9 % Sodium Chloride Mini Bag 100 ML IVPB SCH ×3 (04:10→17:14)
[2020-08-24] MEDS: *HR* Heparin 5,000 UNIT/ML VIAL SQ SCH ×2 (04:54→17:13)
[2020-08-24] MEDS: Gabapentin 300 MG CAPSULE PO SCH ×2 (07:58→21:20)
[2020-08-24 09:27] LABS: Basophils % 0.5 %; Eosinophils # 0.1 K/mcL (0.0-0.6); Eosinophils % 1.9 %; Hemoglobin 11.4 g/dL (12.9-16.9); Immature Granulocytes % 0.3 % (0-4); Lymphocytes # 0.8 K/mcL (0.6-4.6); Lymphocytes % 10.3 %; Mean Corpuscular HGB Conc 33.5 g/dL (31.6-35.5); Mean Corpuscular Hemoglobin 30.3 pg (28.0-33.3); Mean Corpuscular Volume 90.4 fL (83.0-100.0); Mean Platelet Volume 9.9 fL (9.4-12.4); Monocytes # 0.7 K/mcL (0.0-1.3); Monocytes % 9.1 %; Neutrophils # 5.9 K/mcL (1.6-8.9); Platelet Count 268 K/mcL (140-400); Red Blood Count 3.76 M/mcL (4.19-5.50); Red Cell Distribution Width 14.4 % (11.5-14.5); Segmented Neutrophils % 77.9 %; White Blood Count 7.6 K/mcL (4.3-11.1)
[2020-08-24 09:43] LABS: BUN/Creatinine Ratio 19 (6-26); Blood Urea Nitrogen 22 mg/dL (6-20); Calcium 8.6 mg/dL (8.6-10.3); Carbon Dioxide 29 mEq/L (23-29); Chloride 103 mEq/L (98-107); Glucose 261 mg/dL (70-105); Osmolality,Calculated 298 (280-300); Potassium 4.3 mEq/L (3.5-5.1); Sodium 138 mEq/L (136-145); eGFR For African Americans > 60 (> 60); eGFR For Non-African Americans > 60 (> 60)
[2020-08-24] MEDS: Budesonide/Formoterol 160/4.5 1 PUFF INH IH SCH ×2 (09:50→21:59)
[2020-08-24 13:16] LABS: C-Reactive Protein 99 mg/L (Less than 10)
[2020-08-24] MEDS: Lactobacillus 1 EACH CAP.SPRINK PO SCH (21:20)
[2020-08-24] MEDS: Aspirin 81 MG TAB.CHEW PO SCH (21:20)
[2020-08-25] MEDS: Vancomycin 1,500 MG/265 ML IV.SOLN IVPB SCH (01:14)
[2020-08-25 01:55] LABS: Hematocrit 31.7 % (37.5-50.1); Hemoglobin 10.3 g/dL (12.9-16.9); Mean Corpuscular HGB Conc 32.5 g/dL (31.6-35.5); Mean Corpuscular Hemoglobin 29.7 pg (28.0-33.3); Mean Corpuscular Volume 91.4 fL (83.0-100.0); Mean Platelet Volume 9.8 fL (9.4-12.4); Platelet Count 253 K/mcL (140-400); Red Blood Count 3.47 M/mcL (4.19-5.50); Red Cell Distribution Width 14.4 % (11.5-14.5); White Blood Count 6.9 K/mcL (4.3-11.1)
[2020-08-25 02:15] LABS: BUN/Creatinine Ratio 19 (6-26); Blood Urea Nitrogen 23 mg/dL (6-20); Calcium 8.5 mg/dL (8.6-10.3); Carbon Dioxide 29 mEq/L (23-29); Chloride 103 mEq/L (98-107); Glucose 147 mg/dL (70-105); Osmolality,Calculated 292 (280-300); Potassium 4.2 mEq/L (3.5-5.1); Sodium 138 mEq/L (136-145); eGFR For African Americans > 60 (> 60); eGFR For Non-African Americans > 60 (> 60)
[2020-08-25] MEDS: Piperacillin/Tazobactam 3.375 GM in 0.9 % Sodium Chloride Mini Bag 100 ML IVPB SCH ×2 (02:43→08:45)
[2020-08-25] MEDS: Ipratropium/Albuterol Neb 3 ML IH SCH ×2 (04:26→10:17)
[2020-08-25] MEDS: *HR* Heparin 5,000 UNIT/ML VIAL SQ SCH ×2 (06:38→17:55)
[2020-08-25] MEDS: Insulin LISPRO 300 UNITS/3 ML VIAL SUBQ SCH ×7 (08:42→21:33)
[2020-08-25] MEDS: Gabapentin 300 MG CAPSULE PO SCH ×2 (08:42→21:32)
[2020-08-25] MEDS: Lactobacillus 1 EACH CAP.SPRINK PO SCH ×2 (08:42→21:32)
[2020-08-25] MEDS: Insulin DETEMIR 100 UNIT/ML X5UNITS SUBQ SCH ×2 (08:54→21:33)
[2020-08-25] MEDS ORDERED: Ipratropium/Albuterol Neb 3 ML IH PRN (10:16)
[2020-08-25] MEDS: Budesonide/Formoterol 160/4.5 1 PUFF INH IH SCH ×2 (10:18→22:35)
[2020-08-25] MEDS ORDERED: Lidocaine -MPF 1% 5 ML AMPUL INFILT ONE (12:27)
[2020-08-25] MEDS: Vancomycin 1,250 MG/262.5 ML IV.SOLN IVPB SCH (12:50)
[2020-08-25] MEDS: Aspirin 81 MG TAB.CHEW PO SCH (21:32)
[2020-08-25] MEDS: Ondansetron 4 MG/2 ML VIAL IVP PRN (21:32)
[2020-08-26] MEDS: Vancomycin 1,250 MG/262.5 ML IV.SOLN IVPB SCH ×2 (00:27→14:01)
[2020-08-26 00:48] LABS: Basophils # 0.1 K/mcL (0.0-0.2); Basophils % 0.7 %; Eosinophils # 0.2 K/mcL (0.0-0.6); Eosinophils % 2.1 %; Hematocrit 31.4 % (37.5-50.1); Hemoglobin 10.5 g/dL (12.9-16.9); Immature Granulocytes % 0.6 % (0-4); Lymphocytes # 1.2 K/mcL (0.6-4.6); Lymphocytes % 16.1 %; Mean Corpuscular HGB Conc 33.4 g/dL (31.6-35.5); Mean Corpuscular Volume 89.7 fL (83.0-100.0); Mean Platelet Volume 9.5 fL (9.4-12.4); Monocytes # 0.7 K/mcL (0.0-1.3); Monocytes % 9.1 %; Neutrophils # 5.2 K/mcL (1.6-8.9); Platelet Count 279 K/mcL (140-400); Red Cell Distribution Width 14.2 % (11.5-14.5); Segmented Neutrophils % 71.4 %; White Blood Count 7.3 K/mcL (4.3-11.1)
[2020-08-26 01:08] LABS: BUN/Creatinine Ratio 21 (6-26); Blood Urea Nitrogen 24 mg/dL (6-20); Calcium 8.5 mg/dL (8.6-10.3); Carbon Dioxide 30 mEq/L (23-29); Chloride 105 mEq/L (98-107); Glucose 166 mg/dL (70-105); Magnesium 2.2 mg/dL (1.6-2.6); Osmolality,Calculated 296 (280-300); Potassium 4.2 mEq/L (3.5-5.1); Sodium 139 mEq/L (136-145); eGFR For African Americans > 60 (> 60); eGFR For Non-African Americans > 60 (> 60)
[2020-08-26] MEDS: *HR* Heparin 5,000 UNIT/ML VIAL SQ SCH ×2 (05:41→17:02)
[2020-08-26] MEDS: Budesonide/Formoterol 160/4.5 1 PUFF INH IH SCH ×2 (07:24→23:00)
[2020-08-26] MEDS: Insulin LISPRO 300 UNITS/3 ML VIAL SUBQ SCH ×7 (08:08→20:31)
[2020-08-26] MEDS: Insulin DETEMIR 100 UNIT/ML X5UNITS SUBQ SCH ×2 (08:09→20:16)
[2020-08-26] MEDS: Gabapentin 300 MG CAPSULE PO SCH ×2 (08:13→20:14)
[2020-08-26] MEDS: Lactobacillus 1 EACH CAP.SPRINK PO SCH ×2 (08:13→20:14)
[2020-08-26] MEDS: Ondansetron 4 MG/2 ML VIAL IVP PRN (08:14)
[2020-08-26] MEDS ORDERED: *HR* Promethazine 25 MG/ML VIAL IM ONE (11:41)
[2020-08-26] MEDS: polyethylene glycoL 3350 17 GM POWD.PACK PO SCH (12:12)
[2020-08-26] MEDS: Sennosides 8.6 MG TABLET PO SCH ×2 (12:13→20:14)
[2020-08-26] MEDS: Fluconazole 400 MG/200 ML 400 MG/200 ML BAG IVPB SCH (12:13)
[2020-08-26] MEDS: Aspirin 81 MG TAB.CHEW PO SCH (20:14)
[2020-08-26] MEDS ORDERED: amLODIPine 5 MG TABLET PO SCH (21:00)
[2020-08-27 00:29] LABS: Basophils % 0.4 %; Eosinophils # 0.1 K/mcL (0.0-0.6); Eosinophils % 1.9 %; Hematocrit 29.2 % (37.5-50.1); Hemoglobin 9.7 g/dL (12.9-16.9); Immature Granulocytes % 0.9 % (0-4); Lymphocytes # 1.3 K/mcL (0.6-4.6); Lymphocytes % 19.5 %; Mean Corpuscular HGB Conc 33.2 g/dL (31.6-35.5); Mean Corpuscular Hemoglobin 29.8 pg (28.0-33.3); Mean Corpuscular Volume 89.6 fL (83.0-100.0); Mean Platelet Volume 9.5 fL (9.4-12.4); Monocytes # 0.6 K/mcL (0.0-1.3); Monocytes % 8.5 %; Neutrophils # 4.7 K/mcL (1.6-8.9); Platelet Count 269 K/mcL (140-400); Red Blood Count 3.26 M/mcL (4.19-5.50); Red Cell Distribution Width 14.2 % (11.5-14.5); Segmented Neutrophils % 68.8 %; White Blood Count 6.8 K/mcL (4.3-11.1)
[2020-08-27 00:48] LABS: BUN/Creatinine Ratio 23 (6-26); Blood Urea Nitrogen 27 mg/dL (6-20); Calcium 8.4 mg/dL (8.6-10.3); Carbon Dioxide 30 mEq/L (23-29); Chloride 104 mEq/L (98-107); Glucose 157 mg/dL (70-105); Magnesium 2.1 mg/dL (1.6-2.6); Osmolality,Calculated 296 (280-300); Potassium 4.2 mEq/L (3.5-5.1); Sodium 139 mEq/L (136-145); Vancomycin,Trough 18 mcg/mL (5-10); eGFR For African Americans > 60 (> 60); eGFR For Non-African Americans > 60 (> 60)
[2020-08-27] MEDS: Vancomycin 1,250 MG/262.5 ML IV.SOLN IVPB SCH ×2 (00:56→13:33)
[2020-08-27] MEDS: *HR* Heparin 5,000 UNIT/ML VIAL SQ SCH ×2 (05:35→18:24)
[2020-08-27] MEDS: Budesonide/Formoterol 160/4.5 1 PUFF INH IH SCH ×2 (07:33→20:26)
[2020-08-27] MEDS: Insulin LISPRO 300 UNITS/3 ML VIAL SUBQ SCH ×4 (07:35→12:11)
[2020-08-27] MEDS: Sennosides 8.6 MG TABLET PO SCH ×2 (07:43→22:31)
[2020-08-27] MEDS: Lactobacillus 1 EACH CAP.SPRINK PO SCH ×2 (07:43→22:32)
[2020-08-27] MEDS: Insulin DETEMIR 100 UNIT/ML X5UNITS SUBQ SCH (07:44)
[2020-08-27] MEDS: Gabapentin 300 MG CAPSULE PO SCH ×2 (07:44→22:32)
[2020-08-27] MEDS: Fluconazole 400 MG/200 ML 400 MG/200 ML BAG IVPB SCH (07:44)
[2020-08-27] MEDS: polyethylene glycoL 3350 17 GM POWD.PACK PO SCH (12:04)
[2020-08-27] MEDS: Insulin NPH/REG 70/30 100 UNIT/ML (x5UNIT) SUBQ SCH (18:16)
[2020-08-27] MEDS: Aspirin 81 MG TAB.CHEW PO SCH (22:32)
[2020-08-27] MEDS: amLODIPine 5 MG TABLET PO SCH (22:32)
[2020-08-28] MEDS: *HR* Heparin 5,000 UNIT/ML VIAL SQ SCH ×2 (04:57→17:34)
[2020-08-28 05:28] LABS: Basophils % 0.6 %; Eosinophils # 0.2 K/mcL (0.0-0.6); Eosinophils % 2.3 %; Hematocrit 30.1 % (37.5-50.1); Hemoglobin 10.2 g/dL (12.9-16.9); Immature Granulocytes % 0.8 % (0-4); Lymphocytes # 1.2 K/mcL (0.6-4.6); Lymphocytes % 19.4 %; Mean Corpuscular HGB Conc 33.9 g/dL (31.6-35.5); Mean Corpuscular Hemoglobin 30.4 pg (28.0-33.3); Mean Corpuscular Volume 89.6 fL (83.0-100.0); Mean Platelet Volume 9.5 fL (9.4-12.4); Monocytes # 0.5 K/mcL (0.0-1.3); Neutrophils # 4.4 K/mcL (1.6-8.9); Platelet Count 284 K/mcL (140-400); Red Blood Count 3.36 M/mcL (4.19-5.50); Red Cell Distribution Width 14.1 % (11.5-14.5); Segmented Neutrophils % 68.9 %; White Blood Count 6.4 K/mcL (4.3-11.1)
[2020-08-28 05:41] LABS: BUN/Creatinine Ratio 27 (6-26); Blood Urea Nitrogen 27 mg/dL (6-20); Calcium 8.8 mg/dL (8.6-10.3); Carbon Dioxide 31 mEq/L (23-29); Chloride 105 mEq/L (98-107); Glucose 153 mg/dL (70-105); Magnesium 2.1 mg/dL (1.6-2.6); Osmolality,Calculated 300 (280-300); Potassium 4.2 mEq/L (3.5-5.1); Sodium 141 mEq/L (136-145); eGFR For African Americans > 60 (> 60); eGFR For Non-African Americans > 60 (> 60)
[2020-08-28] MEDS: Budesonide/Formoterol 160/4.5 1 PUFF INH IH SCH ×2 (07:53→20:19)
[2020-08-28] MEDS: Fluconazole 400 MG/200 ML 400 MG/200 ML BAG IVPB SCH (08:35)
[2020-08-28] MEDS: Vancomycin 1,250 MG/262.5 ML IV.SOLN IVPB SCH ×2 (08:35→21:08)
[2020-08-28] MEDS: polyethylene glycoL 3350 17 GM POWD.PACK PO SCH (08:35)
[2020-08-28] MEDS: Sennosides 8.6 MG TABLET PO SCH (08:36)
[2020-08-28] MEDS: Lactobacillus 1 EACH CAP.SPRINK PO SCH ×2 (08:36→21:08)
[2020-08-28] MEDS: Insulin NPH/REG 70/30 100 UNIT/ML (x5UNIT) SUBQ SCH ×2 (08:36→17:34)
[2020-08-28] MEDS: Gabapentin 300 MG CAPSULE PO SCH ×2 (08:36→21:08)
[2020-08-28] MEDS: Aspirin 81 MG TAB.CHEW PO SCH (21:08)
[2020-08-28] MEDS: amLODIPine 5 MG TABLET PO SCH (21:08)
[2020-08-29 04:01] LABS: Basophils # 0.1 K/mcL (0.0-0.2); Basophils % 0.7 %; Eosinophils # 0.1 K/mcL (0.0-0.6); Eosinophils % 1.7 %; Hematocrit 28.6 % (37.5-50.1); Hemoglobin 9.8 g/dL (12.9-16.9); Immature Granulocytes % 1.1 % (0-4); Lymphocytes # 1.5 K/mcL (0.6-4.6); Lymphocytes % 21.9 %; Mean Corpuscular HGB Conc 34.3 g/dL (31.6-35.5); Mean Corpuscular Hemoglobin 30.4 pg (28.0-33.3); Mean Corpuscular Volume 88.8 fL (83.0-100.0); Mean Platelet Volume 9.3 fL (9.4-12.4); Monocytes # 0.6 K/mcL (0.0-1.3); Monocytes % 8.9 %; Neutrophils # 4.6 K/mcL (1.6-8.9); Platelet Count 282 K/mcL (140-400); Red Blood Count 3.22 M/mcL (4.19-5.50); Red Cell Distribution Width 14.2 % (11.5-14.5); Segmented Neutrophils % 65.7 %
[2020-08-29 04:20] LABS: BUN/Creatinine Ratio 26 (6-26); Blood Urea Nitrogen 29 mg/dL (6-20); Calcium 8.8 mg/dL (8.6-10.3); Carbon Dioxide 31 mEq/L (23-29); Chloride 101 mEq/L (98-107); Glucose 135 mg/dL (70-105); Osmolality,Calculated 294 (280-300); Sodium 138 mEq/L (136-145); eGFR For African Americans > 60 (> 60); eGFR For Non-African Americans > 60 (> 60)
[2020-08-29] MEDS: *HR* Heparin 5,000 UNIT/ML VIAL SQ SCH ×2 (04:43→17:48)
[2020-08-29] MEDS: Lactobacillus 1 EACH CAP.SPRINK PO SCH ×2 (08:05→20:34)
[2020-08-29] MEDS: Vancomycin 1,250 MG/262.5 ML IV.SOLN IVPB SCH ×2 (08:05→20:34)
[2020-08-29] MEDS: polyethylene glycoL 3350 17 GM POWD.PACK PO SCH (08:05)
[2020-08-29] MEDS: NIFEdipine XL (24 HR) 60 MG TAB.ER.24 PO SCH (08:05)
[2020-08-29] MEDS: Fluconazole 100 MG TABLET PO SCH (08:05)
[2020-08-29] MEDS: Insulin NPH/REG 70/30 100 UNIT/ML (x5UNIT) SUBQ SCH ×2 (08:05→17:48)
[2020-08-29] MEDS: Gabapentin 300 MG CAPSULE PO SCH ×2 (08:05→20:34)
[2020-08-29] MEDS: Budesonide/Formoterol 160/4.5 1 PUFF INH IH SCH ×2 (10:48→21:56)
[2020-08-29] MEDS: Aspirin 81 MG TAB.CHEW PO SCH (20:34)
[2020-08-30] MEDS: *HR* Heparin 5,000 UNIT/ML VIAL SQ SCH ×2 (06:01→16:58)
[2020-08-30 06:21] LABS: Basophils # 0.1 K/mcL (0.0-0.2); Basophils % 0.7 %; Eosinophils # 0.1 K/mcL (0.0-0.6); Eosinophils % 1.9 %; Hematocrit 28.9 % (37.5-50.1); Hemoglobin 9.6 g/dL (12.9-16.9); Immature Granulocytes % 0.8 % (0-4); Lymphocytes # 1.5 K/mcL (0.6-4.6); Lymphocytes % 20.4 %; Mean Corpuscular HGB Conc 33.2 g/dL (31.6-35.5); Mean Corpuscular Hemoglobin 29.3 pg (28.0-33.3); Mean Corpuscular Volume 88.1 fL (83.0-100.0); Mean Platelet Volume 9.2 fL (9.4-12.4); Monocytes # 0.6 K/mcL (0.0-1.3); Monocytes % 8.7 %; Platelet Count 281 K/mcL (140-400); Red Blood Count 3.28 M/mcL (4.19-5.50); Red Cell Distribution Width 14.4 % (11.5-14.5); Segmented Neutrophils % 67.5 %; White Blood Count 7.4 K/mcL (4.3-11.1)
[2020-08-30 06:42] LABS: BUN/Creatinine Ratio 30 (6-26); Blood Urea Nitrogen 35 mg/dL (6-20); Calcium 8.7 mg/dL (8.6-10.3); Carbon Dioxide 31 mEq/L (23-29); Chloride 102 mEq/L (98-107); Glucose 171 mg/dL (70-105); Osmolality,Calculated 298 (280-300); Potassium 4.3 mEq/L (3.5-5.1); Sodium 138 mEq/L (136-145); eGFR For African Americans > 60 (> 60); eGFR For Non-African Americans > 60 (> 60)
[2020-08-30 07:12] VITALS: BP 152/97
[2020-08-30] MEDS: Insulin NPH/REG 70/30 100 UNIT/ML (x5UNIT) SUBQ SCH ×2 (08:14→16:55)
[2020-08-30] MEDS: Gabapentin 300 MG CAPSULE PO SCH (08:15)
[2020-08-30] MEDS: Fluconazole 100 MG TABLET PO SCH (08:15)
[2020-08-30] MEDS: NIFEdipine XL (24 HR) 60 MG TAB.ER.24 PO SCH (08:15)
[2020-08-30] MEDS: Lactobacillus 1 EACH CAP.SPRINK PO SCH (08:15)
[2020-08-30] MEDS: Vancomycin 1,250 MG/262.5 ML IV.SOLN IVPB SCH (09:10)
[2020-08-30] MEDS: Budesonide/Formoterol 160/4.5 1 PUFF INH IH SCH (11:01)
[2020-08-30] MEDS: polyethylene glycoL 3350 17 GM POWD.PACK PO SCH (16:50)
[2020-08-30 17:35] LABS: Adenovirus Not Detected (Not Detect); Bordetella Pertussis Not Detected (Not Detect); Chlamydophila pneumoniae Not Detected (Not Detect); Coronavirus 229E Not Detected (Not Detect); Coronavirus HKU1 Not Detected (Not Detect); Coronavirus NL63 Not Detected (Not Detect); Coronavirus OC43 Not Detected (Not Detect); Human Metapneumovirus Not Detected (Not Detect); Human Rhinovirus/Enterovirus Not Detected (Not Detect); Influenza A Subtype 2009 H1 Not Detected (Not Detect); Influenza B Not Detected (Not Detect); Mycoplasma pneumoniae Not Detected (Not Detect); Parainfluenza Virus 1 Not Detected (Not Detect); Parainfluenza Virus 2 Not Detected (Not Detect); Parainfluenza Virus 3 Not Detected (Not Detect); Parainfluenza Virus 4 Not Detected (Not Detect); Respiratory Syncytial Virus Not Detected (Not Detect); SARS-CoV-2 Not Detected (Not Detect)
== END 2020-08-30 18:24 | DRG 853 ==
LOC: EMEROOARM 12:18 → 3NENU 12:18 → SUATTDRO 19:21
PROVIDERS: ADMIT Internal Medicine; ATTEND Internal Medicine

== ENCOUNTER 2020-09-09 16:46 | Inpatient (IN) ==
[2020-09-10] MEDS ORDERED: Ondansetron 4 MG/2 ML VIAL IVP PRN (05:23)
[2020-09-10] MEDS ORDERED: Naloxone 0.4 MG/ML INJ IVP PRN (05:23)
[2020-09-10] MEDS ORDERED: Melatonin 3 MG TABLET PO PRN (05:23)
[2020-09-10 06:17] LABS: Hematocrit 31.1 % (37.5-50.1); Hemoglobin 10.5 g/dL (12.9-16.9); Mean Corpuscular HGB Conc 33.8 g/dL (31.6-35.5); Mean Corpuscular Hemoglobin 30.1 pg (28.0-33.3); Mean Corpuscular Volume 89.1 fL (83.0-100.0); Mean Platelet Volume 10.2 fL (9.4-12.4); Platelet Count 231 K/mcL (140-400); Red Blood Count 3.49 M/mcL (4.19-5.50); White Blood Count 5.1 K/mcL (4.3-11.1)
[2020-09-10] MEDS ORDERED: D5% in Water 1,000 ML IVC PRN (06:31)
[2020-09-10] MEDS ORDERED: *HR* Dextrose 50 % in Water (Vial) 50 ML VIAL IVP PRN (06:31)
[2020-09-10] MEDS ORDERED: Dextrose Gel 15 GM/37.5 ML TUBE PO PRN ×2 (06:31)
[2020-09-10] MEDS: *HR* Heparin 5,000 UNIT/ML VIAL SQ SCH ×3 (06:58→20:44)
[2020-09-10 06:59] LABS: Alanine Aminotransferase 15 Units/L (7-52); Albumin/Globulin Ratio 1.4 (1.1-2.2); Alkaline Phosphatase 119 Units/L (34-104); Aspartate Amino Transferase 16 Units/L (13-39); BUN/Creatinine Ratio 32 (6-26); Bilirubin,Total 0.7 mg/dL (0.3-1.0); Blood Urea Nitrogen 46 mg/dL (6-20); Calcium 9.5 mg/dL (8.6-10.3); Carbon Dioxide 29 mEq/L (23-29); Chloride 100 mEq/L (98-107); Globulin 2.9 g/dL (2.4-3.5); Glucose 215 mg/dL (70-105); Osmolality,Calculated 306 (280-300); Potassium 4.3 mEq/L (3.5-5.1); Sodium 139 mEq/L (136-145); Total Protein 6.9 g/dL (6.4-8.9); eGFR For African Americans > 60 (> 60); eGFR For Non-African Americans 51 (> 60)
[2020-09-10] MEDS ORDERED: Vancomycin 1,250 MG/262.5 ML IV.SOLN IVPB SCH (08:00)
[2020-09-10] MEDS ORDERED: Furosemide 40 MG/4 ML VIAL IVP STA (08:27)
[2020-09-10] MEDS ORDERED: Ipratropium/Albuterol Neb 3 ML IH STA (08:29)
[2020-09-10] MEDS ORDERED: methylPREDNISolone 125 MG/2 ML VIAL IVP STA (08:30)
[2020-09-10] MEDS ORDERED: Ipratropium/Albuterol Neb 3 ML ONE (08:33)
[2020-09-10] MEDS: Furosemide 40 MG/4 ML VIAL IVP SCH ×2 (09:07→20:43)
[2020-09-10] MEDS: Insulin LISPRO 300 UNITS/3 ML VIAL SUBQ SCH ×3 (09:20→15:58)
[2020-09-10] MEDS: Insulin DETEMIR 100 UNIT/ML X5UNITS SUBQ SCH ×2 (10:04→20:43)
[2020-09-10] MEDS: Fluconazole 400 MG/200 ML 400 MG/200 ML BAG IVPB SCH (10:04)
[2020-09-10] MEDS: Ipratropium/Albuterol Neb 3 ML IH SCH ×4 (11:08→22:54)
[2020-09-10] MEDS: Acetaminophen 325 MG TABLET PO PRN (14:05)
[2020-09-10] MEDS: MethylPREDNISolone 40 MG/ML VIAL IVP SCH (15:53)
[2020-09-10] MEDS: levoFLOXacin 750 MG TABLET PO SCH (18:53)
[2020-09-10] MEDS: Aspirin 81 MG TAB.CHEW PO SCH (20:44)
[2020-09-11] MEDS: Acetaminophen 325 MG TABLET PO PRN ×2 (00:05→17:31)
[2020-09-11 02:45] LABS: Basophils % 0.3 %; Hematocrit 30.5 % (37.5-50.1); Hemoglobin 10.4 g/dL (12.9-16.9); Immature Granulocytes % 0.6 % (0-4); Lymphocytes # 0.3 K/mcL (0.6-4.6); Lymphocytes % 9.1 %; Mean Corpuscular HGB Conc 34.1 g/dL (31.6-35.5); Mean Corpuscular Hemoglobin 30.1 pg (28.0-33.3); Mean Corpuscular Volume 88.2 fL (83.0-100.0); Mean Platelet Volume 10.4 fL (9.4-12.4); Monocytes # 0.1 K/mcL (0.0-1.3); Monocytes % 1.5 %; Neutrophils # 2.9 K/mcL (1.6-8.9); Platelet Count 205 K/mcL (140-400); Red Blood Count 3.46 M/mcL (4.19-5.50); Red Cell Distribution Width 15.6 % (11.5-14.5); Segmented Neutrophils % 88.5 %; White Blood Count 3.3 K/mcL (4.3-11.1)
[2020-09-11 03:03] LABS: BUN/Creatinine Ratio 33 (6-26); Blood Urea Nitrogen 45 mg/dL (6-20); Calcium 9.3 mg/dL (8.6-10.3); Carbon Dioxide 28 mEq/L (23-29); Chloride 100 mEq/L (98-107); Glucose 432 mg/dL (70-105); Osmolality,Calculated 316 (280-300); Potassium 4.3 mEq/L (3.5-5.1); Sodium 138 mEq/L (136-145); eGFR For African Americans > 60 (> 60); eGFR For Non-African Americans 54 (> 60)
[2020-09-11] MEDS: Ipratropium/Albuterol Neb 3 ML IH SCH ×6 (03:36→23:27)
[2020-09-11] MEDS: *HR* Heparin 5,000 UNIT/ML VIAL SQ SCH ×3 (05:08→20:26)
[2020-09-11] MEDS: Insulin LISPRO 300 UNITS/3 ML VIAL SUBQ SCH ×3 (07:27→17:31)
[2020-09-11] MEDS: Fluconazole 400 MG/200 ML 400 MG/200 ML BAG IVPB SCH (07:28)
[2020-09-11] MEDS: Insulin DETEMIR 100 UNIT/ML X5UNITS SUBQ SCH ×2 (07:29→20:27)
[2020-09-11] MEDS: MethylPREDNISolone 40 MG/ML VIAL IVP SCH ×2 (07:30)
[2020-09-11] MEDS: NIFEdipine XL (24 HR) 60 MG TAB.ER.24 PO SCH (07:31)
[2020-09-11] MEDS: Furosemide 40 MG/4 ML VIAL IVP SCH ×2 (07:31→20:27)
[2020-09-11] MEDS: lisinopriL 20 MG TABLET PO SCH (07:31)
[2020-09-11] MEDS: levoFLOXacin 750 MG TABLET PO SCH (07:32)
[2020-09-11] MEDS ORDERED: Insulin NPH 100 UNIT/ML (x5UNIT) SUBQ SCH (08:09)
[2020-09-11] MEDS: Aspirin 81 MG TAB.CHEW PO SCH (20:28)
[2020-09-12 04:13] LABS: Eosinophils % 0.1 %; Hematocrit 28.3 % (37.5-50.1); Hemoglobin 9.3 g/dL (12.9-16.9); Immature Granulocytes % 0.7 % (0-4); Lymphocytes # 0.6 K/mcL (0.6-4.6); Lymphocytes % 8.7 %; Mean Corpuscular HGB Conc 32.9 g/dL (31.6-35.5); Mean Corpuscular Hemoglobin 29.3 pg (28.0-33.3); Mean Corpuscular Volume 89.3 fL (83.0-100.0); Mean Platelet Volume 10.5 fL (9.4-12.4); Monocytes # 0.5 K/mcL (0.0-1.3); Monocytes % 7.9 %; Neutrophils # 5.5 K/mcL (1.6-8.9); Platelet Count 187 K/mcL (140-400); Red Blood Count 3.17 M/mcL (4.19-5.50); Red Cell Distribution Width 15.8 % (11.5-14.5); Segmented Neutrophils % 82.6 %
[2020-09-12 04:18] LABS: White Blood Count 6.7 K/mcL (4.3-11.1)
[2020-09-12 04:35] LABS: Potassium 3.8 mEq/L (3.5-5.1)
[2020-09-12] MEDS: Ipratropium/Albuterol Neb 3 ML IH SCH ×5 (04:40→20:24)
[2020-09-12] MEDS: *HR* Heparin 5,000 UNIT/ML VIAL SQ SCH ×3 (06:15→21:23)
[2020-09-12] MEDS: Fluconazole 400 MG/200 ML 400 MG/200 ML BAG IVPB SCH (09:10)
[2020-09-12] MEDS: Insulin LISPRO 300 UNITS/3 ML VIAL SUBQ SCH ×3 (09:11→16:46)
[2020-09-12] MEDS: NIFEdipine XL (24 HR) 60 MG TAB.ER.24 PO SCH (09:12)
[2020-09-12] MEDS: Insulin DETEMIR 100 UNIT/ML X5UNITS SUBQ SCH ×2 (09:12→21:23)
[2020-09-12] MEDS: Acetaminophen 325 MG TABLET PO PRN (16:45)
[2020-09-12] MEDS: Aspirin 81 MG TAB.CHEW PO SCH (21:22)
[2020-09-12] MEDS ORDERED: Gabapentin 300 MG CAPSULE PO ONE (21:53)
[2020-09-13] MEDS: Ipratropium/Albuterol Neb 3 ML IH SCH ×7 (00:04→23:29)
[2020-09-13] MEDS: *HR* Heparin 5,000 UNIT/ML VIAL SQ SCH ×3 (05:17→21:27)
[2020-09-13 07:33] LABS: Basophils % 0.4 %; Eosinophils # 0.1 K/mcL (0.0-0.6); Eosinophils % 2.3 %; Hematocrit 30.9 % (37.5-50.1); Hemoglobin 10.4 g/dL (12.9-16.9); Immature Granulocytes % 0.4 % (0-4); Lymphocytes # 1.7 K/mcL (0.6-4.6); Lymphocytes % 32.3 %; Mean Corpuscular HGB Conc 33.7 g/dL (31.6-35.5); Mean Corpuscular Hemoglobin 30.1 pg (28.0-33.3); Mean Corpuscular Volume 89.3 fL (83.0-100.0); Mean Platelet Volume 10.2 fL (9.4-12.4); Monocytes # 0.5 K/mcL (0.0-1.3); Monocytes % 9.2 %; Platelet Count 181 K/mcL (140-400); Red Blood Count 3.46 M/mcL (4.19-5.50); Red Cell Distribution Width 15.8 % (11.5-14.5); Segmented Neutrophils % 55.4 %; White Blood Count 5.3 K/mcL (4.3-11.1)
[2020-09-13 07:54] LABS: BUN/Creatinine Ratio 47 (6-26); Blood Urea Nitrogen 54 mg/dL (6-20); Calcium 9.2 mg/dL (8.6-10.3); Carbon Dioxide 29 mEq/L (23-29); Chloride 106 mEq/L (98-107); Glucose 177 mg/dL (70-105); Osmolality,Calculated 309 (280-300); Potassium 3.7 mEq/L (3.5-5.1); Sodium 140 mEq/L (136-145); eGFR For African Americans > 60 (> 60); eGFR For Non-African Americans > 60 (> 60)
[2020-09-13] MEDS: Insulin LISPRO 300 UNITS/3 ML VIAL SUBQ SCH ×3 (10:23→18:20)
[2020-09-13] MEDS: Insulin DETEMIR 100 UNIT/ML X5UNITS SUBQ SCH ×2 (10:24→21:27)
[2020-09-13] MEDS: NIFEdipine XL (24 HR) 60 MG TAB.ER.24 PO SCH (10:25)
[2020-09-13] MEDS: Fluconazole 100 MG TABLET PO SCH (10:26)
[2020-09-13] MEDS: Gabapentin 300 MG CAPSULE PO SCH ×2 (15:22→20:16)
[2020-09-13] MEDS: Acetaminophen 325 MG TABLET PO PRN (15:26)
[2020-09-13] MEDS: Furosemide 40 MG TABLET PO SCH (18:20)
[2020-09-13] MEDS: Aspirin 81 MG TAB.CHEW PO SCH (20:16)
[2020-09-14] MEDS: Ipratropium/Albuterol Neb 3 ML IH SCH ×5 (04:09→19:46)
[2020-09-14 06:45] LABS: Basophils % 0.4 %; Eosinophils # 0.2 K/mcL (0.0-0.6); Eosinophils % 3.3 %; Hematocrit 29.2 % (37.5-50.1); Hemoglobin 9.8 g/dL (12.9-16.9); Immature Granulocytes % 0.8 % (0-4); Lymphocytes # 1.6 K/mcL (0.6-4.6); Lymphocytes % 32.6 %; Mean Corpuscular HGB Conc 33.6 g/dL (31.6-35.5); Mean Corpuscular Hemoglobin 29.8 pg (28.0-33.3); Mean Corpuscular Volume 88.8 fL (83.0-100.0); Mean Platelet Volume 9.8 fL (9.4-12.4); Monocytes # 0.5 K/mcL (0.0-1.3); Neutrophils # 2.6 K/mcL (1.6-8.9); Platelet Count 173 K/mcL (140-400); Red Blood Count 3.29 M/mcL (4.19-5.50); Red Cell Distribution Width 15.9 % (11.5-14.5); Segmented Neutrophils % 52.9 %; White Blood Count 4.9 K/mcL (4.3-11.1)
[2020-09-14] MEDS: *HR* Heparin 5,000 UNIT/ML VIAL SQ SCH ×3 (06:48→21:02)
[2020-09-14 06:54] LABS: BUN/Creatinine Ratio 39 (6-26); Blood Urea Nitrogen 46 mg/dL (6-20); Calcium 8.8 mg/dL (8.6-10.3); Carbon Dioxide 29 mEq/L (23-29); Chloride 107 mEq/L (98-107); Glucose 184 mg/dL (70-105); Osmolality,Calculated 311 (280-300); Potassium 3.8 mEq/L (3.5-5.1); Sodium 142 mEq/L (136-145); eGFR For African Americans > 60 (> 60); eGFR For Non-African Americans > 60 (> 60)
[2020-09-14] MEDS: Insulin LISPRO 300 UNITS/3 ML VIAL SUBQ SCH ×3 (11:32→19:27)
[2020-09-14] MEDS: Furosemide 40 MG TABLET PO SCH ×2 (11:33→19:27)
[2020-09-14] MEDS: Gabapentin 300 MG CAPSULE PO SCH ×2 (11:33→21:01)
[2020-09-14] MEDS: Insulin DETEMIR 100 UNIT/ML X5UNITS SUBQ SCH ×2 (11:33→21:06)
[2020-09-14] MEDS: NIFEdipine XL (24 HR) 60 MG TAB.ER.24 PO SCH (11:33)
[2020-09-14] MEDS: Fluconazole 100 MG TABLET PO SCH (11:33)
[2020-09-14] MEDS: lisinopriL 20 MG TABLET PO SCH (11:33)
[2020-09-14] MEDS: Acetaminophen 325 MG TABLET PO PRN (11:33)
[2020-09-14] MEDS ORDERED: Furosemide 40 MG/4 ML VIAL IVP ONE (16:00)
[2020-09-14] MEDS: Aspirin 81 MG TAB.CHEW PO SCH (21:01)
[2020-09-15] MEDS: Ipratropium/Albuterol Neb 3 ML IH SCH ×6 (00:03→20:36)
[2020-09-15] MEDS: Acetaminophen 325 MG TABLET PO PRN ×2 (01:44→11:03)
[2020-09-15 02:24] LABS: Hematocrit 32.7 % (37.5-50.1); Hemoglobin 10.9 g/dL (12.9-16.9); Mean Corpuscular HGB Conc 33.3 g/dL (31.6-35.5); Mean Corpuscular Hemoglobin 29.5 pg (28.0-33.3); Mean Corpuscular Volume 88.6 fL (83.0-100.0); Mean Platelet Volume 9.9 fL (9.4-12.4); Platelet Count 172 K/mcL (140-400); Red Blood Count 3.69 M/mcL (4.19-5.50); Red Cell Distribution Width 15.7 % (11.5-14.5); Segmented Neutrophils % 49.4 %; White Blood Count 4.9 K/mcL (4.3-11.1)
[2020-09-15 02:25] LABS: Basophils % 0.6 %; Eosinophils # 0.2 K/mcL (0.0-0.6); Eosinophils % 3.3 %; Immature Granulocytes % 0.6 % (0-4); Lymphocytes # 1.7 K/mcL (0.6-4.6); Lymphocytes % 35.6 %; Monocytes # 0.5 K/mcL (0.0-1.3); Monocytes % 10.5 %; Neutrophils # 2.4 K/mcL (1.6-8.9)
[2020-09-15 02:54] LABS: BUN/Creatinine Ratio 42 (6-26); Blood Urea Nitrogen 42 mg/dL (6-20); Calcium 8.9 mg/dL (8.6-10.3); Carbon Dioxide 30 mEq/L (23-29); Chloride 104 mEq/L (98-107); Glucose 152 mg/dL (70-105); Osmolality,Calculated 305 (280-300); Potassium 3.7 mEq/L (3.5-5.1); Sodium 141 mEq/L (136-145); eGFR For African Americans > 60 (> 60); eGFR For Non-African Americans > 60 (> 60)
[2020-09-15] MEDS: *HR* Heparin 5,000 UNIT/ML VIAL SQ SCH ×3 (06:31→21:17)
[2020-09-15] MEDS: lisinopriL 20 MG TABLET PO SCH (10:46)
[2020-09-15] MEDS: Fluconazole 100 MG TABLET PO SCH (10:46)
[2020-09-15] MEDS: Gabapentin 300 MG CAPSULE PO SCH ×2 (10:46→21:17)
[2020-09-15] MEDS: NIFEdipine XL (24 HR) 60 MG TAB.ER.24 PO SCH (10:47)
[2020-09-15] MEDS: Furosemide 40 MG TABLET PO SCH ×2 (10:48→17:22)
[2020-09-15] MEDS: Insulin DETEMIR 100 UNIT/ML X5UNITS SUBQ SCH ×2 (10:54→21:23)
[2020-09-15] MEDS: Insulin LISPRO 300 UNITS/3 ML VIAL SUBQ SCH ×3 (10:58→17:22)
[2020-09-15] MEDS ORDERED: Insulin LISPRO 300 UNITS/3 ML VIAL SUBQ SCH (21:00)
[2020-09-15] MEDS: Aspirin 81 MG TAB.CHEW PO SCH (21:19)
[2020-09-16] MEDS: Ipratropium/Albuterol Neb 3 ML IH SCH ×4 (00:07→11:41)
[2020-09-16 02:30] LABS: Hemoglobin 10.9 g/dL (12.9-16.9); Mean Corpuscular HGB Conc 34.1 g/dL (31.6-35.5); Mean Corpuscular Hemoglobin 30.4 pg (28.0-33.3); Mean Corpuscular Volume 89.1 fL (83.0-100.0); Mean Platelet Volume 10.4 fL (9.4-12.4); Platelet Count 190 K/mcL (140-400); Red Blood Count 3.59 M/mcL (4.19-5.50); Red Cell Distribution Width 15.9 % (11.5-14.5); White Blood Count 6.2 K/mcL (4.3-11.1)
[2020-09-16 03:02] LABS: % Iron Saturation 45 % (20-55); BUN/Creatinine Ratio 39 (6-26); Blood Urea Nitrogen 41 mg/dL (6-20); Calcium 8.9 mg/dL (8.6-10.3); Carbon Dioxide 26 mEq/L (23-29); Chloride 103 mEq/L (98-107); Glucose 152 mg/dL (70-105); Iron 114 mcg/dL (65-175); Magnesium 1.9 mg/dL (1.6-2.6); Osmolality,Calculated 303 (280-300); Phosphorous 4.3 mg/dL (2.7-4.5); Potassium 3.5 mEq/L (3.5-5.1); Sodium 140 mEq/L (136-145); Transferrin 179 mg/dL (203-362); eGFR For African Americans > 60 (> 60); eGFR For Non-African Americans > 60 (> 60)
[2020-09-16 03:09] LABS: Ferritin 493 ng/mL (20-250)
[2020-09-16 03:13] LABS: Folate 9.8 ng/mL (3.0-16.0)
[2020-09-16] MEDS: *HR* Heparin 5,000 UNIT/ML VIAL SQ SCH (05:00)
[2020-09-16 07:00] VITALS: BP 111/71
[2020-09-16] MEDS: Insulin LISPRO 300 UNITS/3 ML VIAL SUBQ SCH (07:25)
[2020-09-16] MEDS: Insulin DETEMIR 100 UNIT/ML X5UNITS SUBQ SCH (07:25)
[2020-09-16] MEDS: Fluconazole 100 MG TABLET PO SCH (07:25)
[2020-09-16] MEDS: NIFEdipine XL (24 HR) 60 MG TAB.ER.24 PO SCH (07:26)
[2020-09-16] MEDS: Furosemide 40 MG TABLET PO SCH (07:26)
[2020-09-16] MEDS: Gabapentin 300 MG CAPSULE PO SCH (07:26)
[2020-09-16] MEDS: lisinopriL 20 MG TABLET PO SCH (07:26)
[2020-09-16] MEDS ORDERED: Multivit/Ca/Min/Fe/FA 1 TAB TABLET PO SCH (09:00)
[2020-09-16] MEDS ORDERED: Cyanocobalamin (B-12) 1,000 MCG TABLET PO SCH (09:00)
[2020-09-16 11:35] LABS: Adenovirus Not Detected (Not Detect); Bordetella Pertussis Not Detected (Not Detect); Chlamydophila pneumoniae Not Detected (Not Detect); Coronavirus 229E Not Detected (Not Detect); Coronavirus HKU1 Not Detected (Not Detect); Coronavirus NL63 Not Detected (Not Detect); Coronavirus OC43 Not Detected (Not Detect); Human Metapneumovirus Not Detected (Not Detect); Human Rhinovirus/Enterovirus Not Detected (Not Detect); Influenza A Subtype 2009 H1 Not Detected (Not Detect); Influenza B Not Detected (Not Detect); Mycoplasma pneumoniae Not Detected (Not Detect); Parainfluenza Virus 1 Not Detected (Not Detect); Parainfluenza Virus 2 Not Detected (Not Detect); Parainfluenza Virus 3 Not Detected (Not Detect); Parainfluenza Virus 4 Not Detected (Not Detect); Respiratory Syncytial Virus Not Detected (Not Detect); SARS-CoV-2 Not Detected (Not Detect)
== END 2020-09-16 13:00 | DRG 291 ==
LOC: 3ANU → SUATTDRO 09-10 05:09
PROVIDERS: ADMIT Internal Medicine; ATTEND Internal Medicine